=== PATIENT | female | born 1955 | race Caucasian/White ===

== ENCOUNTER 2018-12-07 06:49 | Day surgery (SDC) | payer OTHER, SELFPAY ==
[2018-12-07] VITALS (9 sets, daily range): BP systolic 154–191; BP diastolic 77–86; PULSE 82–91; RESP 8–17; TEMP 36.5–36.6; O2SAT 92–98; BMI 32.5
--- NOTE | 2018-12-07 | PATH_ITS ---
[facility] Accession Number: [id number] . 01 Material submitted: . PART A: ANAL SKIN TAG PART B: ANAL LESION . 01 Diagnosis: A. Skin, Anal Tag, Excision: Fibroepithelial polyp/anal tag. Negative for dysplasia and malignancy. . B. Skin, Anal Lesion, Excision: Fibroepithelial polyp/anal tag. Negative for dysplasia and malignancy. 12/11/2018 . 01 Electronically signed: . Tamica Michaels MD, Pathologist NPI- [id number] . 01 Gross description: . Received two formalin-filled containers, both labeled with the patient's name: . A. In a container labeled anal skin tag, the specimen consists of a 0.3 x 0.3 x 1.0 cm, pink-mccauley, dome-shaped portion of tissue, which is inked, bisected, and entirely submitted in cassette A. B. In a container labeled anal lesion, the specimen consists of a 0.4 x 0.3 x 0.3 cm, mccauley-foy, very irregular-shaped, and rough portion of tissue, which is inked, bisected, and totally submitted in cassette B. ([id number]) /FRR . 01 Pathologist provided ICD-10: L91.8 . 01 CPT . 903015, [id number] Performed at: [address] [id number] MD Epi Travis MD Phone: [phone]
[2018-12-07] MEDS: APREPITANT 40 MG CAPSULE PO (07:50)
[2018-12-07] MEDS: LACTATED RINGERS 1,000 ML 42 ML IV (07:53)
[2018-12-07] MEDS: BUPIVACAINE LIPOSOME 266 MG/20 ML VIAL INJ (09:35)
--- NOTE | 2018-12-07 09:41 | PM.HP.1 ---
History of Present Illness Date Patient Seen: 12/07/18 Time Patient Seen: 09:41 Chief complaint: [id number] COLONOSCOPY W/POSS HEMORRHOID BANDING Narrative: Very pleasant 63-year-old lady that I met this past September. She suffers from chronic pain in her neck and back and so she has been on chronic pain medication for quite a long time. This has resulted in significant constipation for many years. She feels like she has gotten that under control but she reports that she has significant hemorrhoids and that she has bleeding with nearly every bowel movement. We discussed examination under anesthesia and hemorrhoid banding in the office. We also talked about the need to make sure that the bleeding is not coming from more proximal source and so she needs a complete colonoscopy as well. It has been about 10 years since her last colonoscopy. She presents today to have those procedures. Patient History Medical History Degenerative disc disease (Chronic) Spinal stenosis (Chronic) Family & Social History Family History: Reviewed 12/07/18 by Corina Paul MD Social History: household members spouse Tobacco & Substance use: Smoking Status Never smoker alcohol intake never Meds Home Medications Medication Instructions Recorded Confirmed Type CHOLECALCIFEROL (VITAMIN D3) 4,000 iu PO Q DAY #0 08/25/10 12/07/18 History (Vitamin D3) Pyridoxine (Vitamin B-6) 0 mg PO * UK DOSE/FREQUENCY #0 08/25/10 History VITAMIN C - 1,000 mg PO Q DAY #0 08/25/10 12/07/18 History (VITAMIN C) Vitamin E (Alpha-Tocopherol) 800 unit PO Q DAY #0 08/25/10 12/07/18 History COENZYME Q10/VITAMIN E (CO-Q-10 200 mg PO QDAY #0 03/13/13 12/07/18 History 200mg) [FISH OIL] #0 03/13/13 10/13/18 History [GLUCOSAMINE] 1,500 mg PO Q DAY #0 03/13/13 12/07/18 History buprenorphine-naloxone [Suboxone] 1 kassidy SUBLINGUAL TID #0 03/13/13 12/07/18 History gabapentin [Neurontin] 600 mg PO TID #0 03/13/13 12/07/18 History nadolol [Corgard] 30 mg PO QDAY #0 03/13/13 12/07/18 History quetiapine 25 mg PO HS #0 03/13/13 12/07/18 History selenium 200 mcg tablet 200 mcg PO DAILY 10/13/18 12/07/18 History Allergies Allergy/AdvReac Type Severity Reaction Status Date / Time No Known Drug Allergies Allergy Unknown Unverified 03/09/18 12:04 codeine [CODEINE] AdvReac Severe HEAD ABOUT Unverified 10/13/18 13:00 TO EXPLODE & BAD NAUSEA & VOMTING. fluoxetine [FLUOXETINE] AdvReac Severe PARANOID. Unverified 10/13/18 13:00 Review of Systems Review of Systems All systems reviewed & are unremarkable except as noted in HPI and below Exam Vital Signs (past 8 hours): - 12/07/18 07:09 Temperature 97.7 F Pulse Rate 91 H Respiratory Rate 17 Blood Pressure 191/86 H Pulse Oximetry 98 Oxygen Delivery Method Room Air Narrative Exam Narrative: Onel 63-year-old lady in no obvious distress HEENT: Normocephalic and atraumatic, pupils equal round reactive to light accommodation with anicteric sclera Lungs: Clear bilaterally Heart: Regular rate and rhythm Abdomen: Soft, rotund, active bowel sounds. No incisions noted. Extremities: Warm and well perfused without edema Assessment & Plan Plan: Assessment/Plan Narrative: Onel 63-year-old lady with chronic pain syndrome has been on long-term narcotic pain control and is now on Suboxone. She has rectal bleeding and requires examination under anesthesia and a complete colonoscopy. It will not be feasible to complete this with IV sedation due to the patient's regular medications. We will complete this procedure today with general anesthesia.
[2018-12-07] MEDS: fentaNYL 100 MCG/2 ML INJ 50 MCG IV (09:47)
--- NOTE | 2018-12-07 09:50 | P.OP_ITS ---
Operative Date/Time/Diagnoses Date of procedure: 12/07/18 Time of procedure: 09:43 Pre-op diagnosis: Rectal bleeding Hemorrhoids Screening Post-op diagnosis: same Procedure & Clinicians Procedure: Colonoscopy with hemorrhoid banding, excision of anal polyp, and biopsy of perianal lesion. Same procedure as scheduled: Yes Indications: Last colonoscopy more than 10 years ago Surgeon: Corina Paul Anesthesia Type: General Operative Notes Findings: 1. Adequate prep 2. Extremely tortuous and atonic colon consistent with chronic constipation 3. Minimal diverticulosis limited to the sigmoid region 4. No AV malformations or neoplastic lesions appreciated 5. One area of grade 2 internal hemorrhoids, banded 6. 1 cm anal polyp 7. Friable lesion at 12:00 Radian in the anal canal with patient in lithotomy position Closure Type: primary Specimen(s): other (1. Anal polyp, 2. Anal lesion) Estimated Blood Loss (mL): 5 Procedure in detail: After obtaining informed consent the patient brought to the operating room and placed in the supine position on the operating table. Following successful induction of general endotracheal anesthesia, appropriate padding of all bony prominences, placement of appropriate monitors, a time-out was held per SCOAP protocol. The colonoscope was lubricated and passed into the patient's anus. The entire colon was navigated to the level of the cecum with significant difficulty. The patient's colon was notably atonic and tortuous. Multiple changes of position and external pressure were required to ventrally reach the cecum. We then pulled the scope back being sure to go to and fro performed on all mucosal prominence is get an excellent examination. Scope withdrawal time for the colonoscopy portion of the procedure was 14 min. At the level of the rectal vault, the scope was retroflexed and we examined the internal hemorrhoids. There was only 1 in large bundle of hemorrhoids at approximately the 4-5 o' clock Radian in the anal canal. Continued examination a 1-1.5 cm anal polyp that was quite friable. This was at the 5:00 a.m. Radian. At the 630 Radian, there was a flat friable lesion. This lesion oozed throughout the procedure. I elected to remove the anal polyp, biopsy the lesion, and band the enlarged internal hemorrhoids. The colonoscopy portion of the procedure was terminated. The anoscope was lubricated and placed in the patient's anal canal. The enlarged second-degree hemorrhoids were visualized, grasped, and 2 bands were deployed at the base of this complex. There was no bleeding noted. We now turned our attention to the 2 anal lesions. We dressed the polyp 1st. The entire area was anesthetized with Exparel to provide extended local analgesia due to the patient's dependence on narcotics. The polyp was removed by creating an elliptical incision at its base. The defect was then closed with 3 0 chromic suture. A wedge-shaped biopsy was then taken of the anal lesion, the remaining defect was then also addressed with chromic suture. The wounds were all checked for hemostasis. We were satisfied that all was clean and dry, the procedure was concluded. All sponge, needle, and instrument counts were correct at the conclusion of the case. The patient was allowed to awake from anesthesia without difficulty and taken to the post anesthesia care unit in good condition. Complications: none Condition: stable Disposition: PACU Plan for aftercare: 1. Discharge to home 2. Follow up with me in 2 weeks 3. Tentatively plan for next colonoscopy in 10 years
[2018-12-07] MEDS: HYDROMORPHONE 4 MG TABLET PO (10:29)
== END 2018-12-07 10:44 | disposition home or self-care (01) ==
PROVIDERS: PCP Family Medicine; Visit Provider Surgery
PROC: 0DJD8ZZ Inspection of Lower Intestinal Tract, Via Natural or Artificial Opening Endoscopic (ICD-10-PCS; CPT 45378; principal; 2018-12-07 07:45)
DX: K62.5 Hemorrhage of anus and rectum (principal); K64.1 Second degree hemorrhoids; K57.30 Diverticulosis of large intestine without perforation or abscess without bleeding; K62.0 Anal polyp; K59.09 Other constipation; G89.29 Other chronic pain
CPT/HCPCS: 46922; 45378; 46221; 46999; C9290; J1100; J2250; J2405; J2704; J3010; J8501

== ENCOUNTER → 2019-08-17 07:42 | Outpatient (CLI) | payer OTHER, SELFPAY ==
--- NOTE | 2019-08-17 | DI.MG.S_ITS ---
BILATERAL DIGITAL SCREENING MAMMOGRAM 3D/2D WITH CAD: 08/17/2019 CLINICAL: Routine screening. Comparison is made to exams dated: 01/25/2018 mammogram, 11/18/2016 mammogram, and 11/06/2015 mammogram - [facility]. The tissue of both breasts is extremely dense, which lowers the sensitivity of mammography. Current study was also evaluated with a Computer Aided Detection (CAD) system. No significant masses, calcifications, or other findings are seen in either breast. There has been no significant interval change. IMPRESSION: NEGATIVE There is no mammographic evidence of malignancy. A 1 year screening mammogram is recommended. This exam was interpreted at Station ID: [id number]. NOTE: For mammograms, a report in lay terms will be sent to the patient. Approximately 15% of breast malignancies will not be visualized mammographically. In the management of a palpable breast mass, a negative mammogram must not discourage biopsy of a clinically suspicious lesion. Electronically Signed By: Jersey brink/kaleb:08/17/2019 11:50:01 letter sent: Normal Exam ACR BI-RADS Category 1: Negative [id number]
== END ==
PROVIDERS: PCP Family Medicine; Visit Provider Family Medicine
DX: Z12.31 Encounter for screening mammogram for malignant neoplasm of breast (principal)
CPT/HCPCS: 77063; 77067

== ENCOUNTER 2019-11-27 06:34 | Emergency (ER) | payer OTHER, SELFPAY ==
[2019-11-27 06:40] VITALS: BP 180/79; PULSE 86; RESP 12; TEMP 36.8; O2SAT 100; BMI 28.5
--- NOTE | 2019-11-27 07:04 | DI.RAD.S_ITS ---
PROCEDURE: XR ELBOW LT MIN 3V INDICATIONS: Fall TECHNIQUE: 3 views of the elbow were acquired. COMPARISON: None. FINDINGS: Bones: No fractures or dislocations. No suspicious bony lesions. Soft tissues: No elbow joint effusion. No suspicious soft tissue calcifications. IMPRESSION: No fracture. No osseous lesion. If symptoms and/or clinical suspicion for pathology persists, further assessment with repeat radiographs (7-10 days) or advanced imaging (e.g. CT, MRI or bone scan) may be helpful. Dictated by: Simi Angulo MD, PhD on 11/27/2019 at 7:48 Approved by: Simi Angulo MD, PhD on 11/27/2019 at 7:49
--- NOTE | 2019-11-27 07:04 | DI.RAD.S_ITS ---
PROCEDURE: XR RIBS LT MIN 3V W CXR1V INDICATIONS: Fall TECHNIQUE: 2 views of the left ribs were acquired, along with a single view chest. COMPARISON: None. FINDINGS: Surgical changes and devices: None. Bones and chest wall: No fractures or dislocations. No suspicious bony lesions. Overlying soft tissues appear unremarkable. Lungs and pleura: No pleural effusions or pneumothorax. Lungs appear clear. Mediastinum: Mediastinal contours appear normal. Heart size is normal. IMPRESSION: No displaced rib fracture. No acute cardiopulmonary disease process. Dictated by: Simi Angulo MD, PhD on 11/27/2019 at 7:47 Approved by: Simi Angulo MD, PhD on 11/27/2019 at 7:48
--- NOTE | 2019-11-27 07:18 | ED.FALL ---
HPI - Fall General Chief Complaint: Fall Stated Complaint: fell thinks she broke rib and left elbow Time Seen by Provider: 11/27/19 06:38 Source: patient Mode of arrival: Ambulatory Limitations: no limitations History of Present Illness HPI Narrative: Patient is a 64-year-old female who presents with left-sided rib pain. She was hanging lights her living room an hour half prior to arrival, when she fell hurting her right ribs. It hurts every time she moves or breathes. She also complains of left elbow pain but no numbness or tingling, I does hurt to palpate. complaint: fall Onset (ago): hour(s) Fall from: standing Fall witnessed: no Place fall occurred: home Loss of consciousness: none Related Data Home Medications Medication Instructions Recorded Confirmed CHOLECALCIFEROL (VITAMIN D3) 4,000 iu PO Q DAY #0 08/25/10 12/07/18 (Vitamin D3) Pyridoxine (Vitamin B-6) 0 mg PO * DOSE/FREQUENCY #0 08/25/10 VITAMIN C - 1,000 mg PO Q DAY #0 08/25/10 12/07/18 (VITAMIN C) Vitamin E (Alpha-Tocopherol) 800 unit PO Q DAY #0 08/25/10 12/07/18 COENZYME Q10/VITAMIN E (CO-Q-10 200 mg PO QDAY #0 03/13/13 12/07/18 200mg) [FISH OIL] #0 03/13/13 10/13/18 [GLUCOSAMINE] 1,500 mg PO Q DAY #0 03/13/13 12/07/18 buprenorphine-naloxone [Suboxone] 1 kassidy SUBLINGUAL TID #0 03/13/13 12/07/18 gabapentin [Neurontin] 600 mg PO TID #0 03/13/13 12/07/18 nadolol [Corgard] 30 mg PO QDAY #0 03/13/13 12/07/18 quetiapine 25 mg PO HS #0 03/13/13 12/07/18 selenium 200 mcg tablet 200 mcg PO DAILY 10/13/18 12/07/18 Previous Rx's Medication Instructions Recorded diazepam 10 mg PO BID PRN #10 tab 12/07/18 dibucaine 1 applictn TOP QID #28 gram 12/07/18 hydromorphone 4 mg PO Q4-6H PRN #10 tab 12/07/18 Allergies Allergy/AdvReac Type Severity Reaction Status Date / Time No Known Drug Allergies Allergy Unknown Unverified 12/22/18 11:33 codeine [CODEINE] AdvReac Severe HEAD ABOUT Unverified 12/22/18 11:33 TO EXPLODE & BAD NAUSEA & VOMTING. fluoxetine [FLUOXETINE] AdvReac Severe PARANOID. Unverified 12/22/18 11:33 Review of Systems Review of Systems ROS Unobtainable: All systems reviewed & are unremarkable except as noted in HPI and below Constitutional Constitutional: Denies chills, Denies fever(s), Denies lethargy and Denies weakness Eyes Eyes: Denies change in vision, Denies eye discharge, Denies irritation and Denies loss of vision Cardiovascular Cardiovascular: Reports as per HPI Respiratory Respiratory: Reports as per HPI Gastrointestinal Gastrointestinal: Denies abdominal pain, Denies change in bowel habits, Denies diarrhea, Denies nausea and Denies vomiting Genitourinary Genitourinary: Denies hematuria, Denies flank pain, Denies urinary incontinence and Denies urinary urgency Musculoskeletal Musculoskeletal: Denies back pain, Denies muscle weakness, Denies numbness and Denies tingling Neurologic Neurologic: Denies loss of vision, Denies numbness, Denies tingling and Denies weakness Patient History Medical History Degenerative disc disease (Chronic) Spinal stenosis (Chronic) Family History Mother Hypertension Cancer Father Stroke Social History marital status: household members: spouse occupational status: employed Smoking Status: Never smoker alcohol intake: never substance use type: does not use Smoking Status: Never smoker alcohol intake frequency: 0-2 drinks per day Substance Use Type: does not use Exam Initial Vital Signs Initial Vital Signs: Vital Signs Temperature 98.2 F 11/27/19 06:40 Pulse Rate 86 11/27/19 06:40 Respiratory Rate 12 11/27/19 06:40 Blood Pressure 180/79 H 11/27/19 06:40 Pulse Oximetry 100 11/27/19 06:40 GENERAL: Well-appearing, well-nourished and in no acute distress. HEENT: Head atraumatic,EOMI, pupils reactive, face symmetric, moist mucous membranes CARDIOVASCULAR: Regular rate and rhythm without murmurs, rubs or gallops. RESPIRATORY: Breath sounds equal bilaterally, no wheezes rales or rhonchi. Pain left anterior lateral ribs no contusion no paradoxical movement tender to touch ABDOMEN: Soft, nontender. Normoactive bowel sounds all 4 quadrants. No guarding or rebound. EXTREMITIES: Normal range of motion, no clubbing or edema. Neurovascularly intact Left upper extremity able to supinate and pronate no gross bony deformity. Tender to touch mild contusion noted laterally NEUROLOGICAL: Alert and oriented x4.Normal gait and speech. Cranial nerves II through XII grossly intact. SKIN: Warm, dry, no laceration, no petechiae, no rashes or lesions. Course Orders Ordered: ED Orders 11/27/19 07:04 XR elbow LT min 3V Stat XR ribs LT min 3V w CXR1V Stat Discontinued Medications Ketorolac Tromethamine (Toradol) 30 mg IM NOW ONE Stop: 11/27/19 07:21 Last Admin: 11/27/19 07:56 Dose: 30 mg Documented by: BOB Vital Signs Vital signs: Vital Signs - 8 hr 11/27/19 06:40 Temperature 98.2 F Pulse Rate 86 Respiratory Rate 12 Blood Pressure 180/79 H Pulse Oximetry 100 MDM - Fall Imaging Data rib XR: Radiologist's Impression: PROCEDURE: XR RIBS LT MIN 3V W CXR1V INDICATIONS: Fall TECHNIQUE: 2 views of the left ribs were acquired, along with a single view chest. COMPARISON: None. FINDINGS: Surgical changes and devices: None. Bones and chest wall: No fractures or dislocations. No suspicious bony lesions. Overlying soft tissues appear unremarkable. Lungs and pleura: No pleural effusions or pneumothorax. Lungs appear clear. Mediastinum: Mediastinal contours appear normal. Heart size is normal. IMPRESSION: No displaced rib fracture. No acute cardiopulmonary disease process. Dictated by: Simi Angulo MD, PhD on 11/27/2019 at 7:47 Extremity x-ray #1: Radiologist's Impression: PROCEDURE: XR ELBOW LT MIN 3V INDICATIONS: Fall TECHNIQUE: 3 views of the elbow were acquired. COMPARISON: None. FINDINGS: Bones: No fractures or dislocations. No suspicious bony lesions. Soft tissues: No elbow joint effusion. No suspicious soft tissue calcifications. IMPRESSION: No fracture. No osseous lesion. If symptoms and/or clinical suspicion for pathology persists, further assessment with repeat radiographs (7-10 days) or advanced imaging (e.g. CT, MRI or bone scan) may be helpful. Dictated by: Simi Angulo MD, PhD on 11/27/2019 at 7:48 Discharge Plan Departure Patient Disposition: Home Clinical Impression: Contusion of rib on left side Qualifiers: Encounter type: initial encounter Qualified Code(s): S20.212A - Contusion of left front wall of thorax, initial encounter Discharge Date/Time: 11/27/19 08:44 Instructions: DI for Rib Contusion Activity Restrictions/Additional Instructions: *You have been diagnosed with left rib contusion *What to do: At this time no sign of broken ribs elbow x-ray is also negative. Expect to have pain for the next 2 weeks. May try splinting with a pillow. *Continue to take medications as directed Ibuprofen 600 mg every 6-8 hours if needed for pain *Follow up with your primary care provider in 2-3 days *Return to ER if you should have increasing shortness of breath worsening pain or any new, worsening or concerning symptoms Prescriptions: No Action CHOLECALCIFEROL (VITAMIN D3) (Vitamin D3) 4,000 iu PO Q DAY Qty: 0 RF: 0 VITAMIN C - (VITAMIN C) 1,000 mg PO Q DAY Qty: 0 RF: 0 Vitamin E (Alpha-Tocopherol) 800 unit PO Q DAY Qty: 0 RF: 0 Pyridoxine (Vitamin B-6) 0 mg PO * UK DOSE/FREQUENCY Qty: 0 RF: 0 quetiapine 25 MG tablet 25 mg PO HS Qty: 0 RF: 0 gabapentin [Neurontin] 600 MG tablet 600 mg PO TID Qty: 0 RF: 0 nadolol [Corgard] 20 MG tablet 30 mg PO QDAY Qty: 0 RF: 0 buprenorphine-naloxone [Suboxone] 8 MG/2 MG film 1 kassidy Sublingual TID Qty: 0 RF: 0 COENZYME Q10/VITAMIN E (CO-Q-10 200mg) 200 mg PO QDAY Qty: 0 RF: 0 [FISH OIL] Qty: 0 RF: 0 [GLUCOSAMINE] 1,500 mg PO Q DAY Qty: 0 RF: 0 selenium 200 mcg tablet 200 mcg PO DAILY RF: 0 diazepam 10 mg tablet 10 mg PO BID PRN (Reason: muscle spasm) Qty: 10 RF: 0 hydromorphone 4 mg tablet 4 mg PO Q4-6H PRN (Reason: pain) Qty: 10 RF: 0 dibucaine 1 % ointment 1 applictn TOP QID Qty: 28 RF: 5 Referrals: Keith Fraire MD [Primary Care Provider] - Stand Alone Forms: Work Release Note
[2019-11-27] MEDS: KETOROLAC 60 MG/2 ML VIAL 30 MG IM (07:56)
== END 2019-11-27 08:44 | disposition home or self-care (01) ==
PROVIDERS: Emergency Provider Emergency Medicine; PCP Family Medicine
DX: S20.212A Contusion of left front wall of thorax, initial encounter (principal); M25.522 Pain in left elbow; W18.30XA Fall on same level, unspecified, initial encounter
CPT/HCPCS: 71101; 73080; 96372; 99283; J1885

== ENCOUNTER → 2020-08-15 11:08 | Outpatient (CLI) | payer OTHER, SELFPAY ==
--- NOTE | 2020-08-15 | DI.RAD.S_ITS ---
PROCEDURE: XR KNEE RT 3V INDICATIONS: right knee pain, swelling TECHNIQUE: 3 views of the knee were acquired. COMPARISON: None. FINDINGS: Bones: No fracture. Mild to moderate narrowing of the medial joint space. Scattered degenerative subchondral sclerosis and spurring. Mild narrowing of the patellofemoral joint space. Soft tissues: No joint effusion. No suspicious soft tissue calcifications. 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 If the patient's pain or other symptoms persist, consider further evaluation with MRI Dictated by: Jose Lion M.D. on 08/15/2020 at 15:03 Approved by: Jose Lion M.D. on 08/15/2020 at 15:05
== END ==
PROVIDERS: PCP Family Medicine; Referring Provider Family Medicine; Visit Provider Family Medicine
DX: M25.561 Pain in right knee (principal); M17.11 Unilateral primary osteoarthritis, right knee
CPT/HCPCS: 73562

== ENCOUNTER → 2021-04-21 08:15 | Outpatient (CLI) | payer OTHER, MEDICARE, SELFPAY ==
--- NOTE | 2021-04-21 | DI.MG.S_ITS ---
BILATERAL DIGITAL SCREENING MAMMOGRAM 3D/2D WITH CAD: 04/21/2021 CLINICAL: Routine screening. Comparison is made to exams dated: 08/17/2019 mammogram, 01/25/2018 mammogram, 11/18/2016 mammogram, 09/28/2014 mammogram, and 09/26/2013 mammogram - [facility]. The tissue of both breasts is heterogeneously dense. This may lower the sensitivity of mammography. Current study was also evaluated with a Computer Aided Detection (CAD) system. There are calcifications in both breasts. No significant masses, calcifications, or other findings are seen in either breast. There has been no significant interval change. IMPRESSION: BENIGN There is no mammographic evidence of malignancy. A 1 year screening mammogram is recommended. This exam was interpreted at Station ID: [id number]. NOTE: For mammograms, a report in lay terms will be sent to the patient. Approximately 15% of breast malignancies will not be visualized mammographically. In the management of a palpable breast mass, a negative mammogram must not discourage biopsy of a clinically suspicious lesion. Electronically Signed By: Cabrera Lynn M.D. at/:04/21/2021 09:33:55 letter sent: Normal Exam ACR BI-RADS Category 2: Benign Finding(s) 3342F
== END ==
PROVIDERS: PCP Family Medicine; Referring Provider Family Medicine; Visit Provider Family Medicine
DX: Z12.31 Encounter for screening mammogram for malignant neoplasm of breast (principal)
CPT/HCPCS: 77063; 77067

== ENCOUNTER → 2022-08-14 13:43 | Outpatient (CLI) | payer OTHER, MEDICARE, SELFPAY ==
[2022-08-14 14:42] LABS: Add Manual Diff / Slide Review NO; Basophils Absolute Auto 0 /uL (0-100); Basophils Percent Auto 0.8 % (0-2); Eosinophils Absolute Auto 100 /uL (0-450); Eosinophils Percent Auto 1.4 % (2-4); Hematocrit 33.7 % (36-46); Hemoglobin 11.8 g/dL (12.0-16.0); Lymphocytes Absolute Auto 1500 /uL (1100-4500); Lymphocytes Percent Auto 29.3 % (25-40); Monocytes Absolute Auto 400 /uL (0-900); Monocytes Percent Auto 7.7 % (3-14); Neutrophils Absolute Auto 3200 /uL (1500-7000); Neutrophils Percent Auto 60.8 % (50-75); Platelet Count 184 X10^3/uL (150-400); Red Blood Cell Count 3.48 X10^6/uL (4.0-5.2); Red Cell Distribution Width 13.4 % (11.6-14.8); White Blood Cell Count 5.2 X10^3/uL (4.5-11.0)
[2022-08-14 15:00] LABS: Alanine Aminotransferase 27 IU/L (<35); Albumin 4.5 g/dL (3.5-5.0); Albumin Globulin Ratio 1.3 (1.0-2.8); Alkaline Phosphatase 69 U/L (38-126); Aspartate Aminotransferase 33 IU/L (14-36); BUN Creatinine Ratio 33.3 (6-22); Bilirubin Total 0.5 mg/dL (0.2-1.3); Blood Urea Nitrogen 19 mg/dL (7-17); Calcium 9.3 mg/dL (8.4-10.2); Carbon Dioxide 29 mmol/L (22-32); Chloride 100 mmol/L (98-107); Cholesterol 246 mg/dL (140-199); Estimated Glomerular Filt Rate > 60 mL/min (>60); Globulin 3.4 g/dL (1.7-4.1); Glucose 105 mg/dL (80-110); HDL Cholesterol 45 mg/dL (40-60); HEMOLYSIS < 15 (0-50); LDL Cholesterol Calculated 162 mg/dL (<100); Potassium 4.3 mmol/L (3.4-5.1); Sodium 141 mmol/L (137-145); Total Protein 7.9 g/dL (6.3-8.2); Triglycerides 194 mg/dL (35-150)
== END ==
PROVIDERS: PCP Family Medicine; Referring Provider Family Medicine; Visit Provider Family Medicine
DX: D64.9 Anemia, unspecified (principal); E78.5 Hyperlipidemia, unspecified; I10 Essential (primary) hypertension
CPT/HCPCS: 36415; 80053; 80061; 85025

== ENCOUNTER → 2023-03-04 07:18 | Outpatient (CLI) | payer OTHER, MEDICARE, SELFPAY ==
--- NOTE | 2023-03-04 | DI.MG.S_ITS ---
BILATERAL DIGITAL SCREENING MAMMOGRAM 3D/2D WITH CAD: 03/04/2023 CLINICAL: Routine screening. Comparison is made to exams dated: 04/21/2021 mammogram, 08/17/2019 mammogram, and 01/25/2018 mammogram - [facility]. Both breasts are heterogeneously dense, which may obscure small masses (category c / 51-75% glandular tissue). Current study was also evaluated with a Computer Aided Detection (CAD) system. There are benign calcifications in both breasts. No significant masses, calcifications, or other findings are seen in either breast. There has been no significant interval change. IMPRESSION: BENIGN There is no mammographic evidence of malignancy. A 1 year screening mammogram is recommended. Based on the Tyrer Cuzick model (a risk assessment model) the patient's lifetime risk is 5.0% and her 10 year risk is 2.5%. According to the ACR, ACS, and NCCN guidelines, an annual breast MRI exam along with mammogram is recommended if the patient's lifetime risk is 20% or greater. This exam was interpreted at Station ID: [id number]. NOTE: For mammograms, a report in lay terms will be sent to the patient. Approximately 15% of breast malignancies will not be visualized mammographically. In the management of a palpable breast mass, a negative mammogram must not discourage biopsy of a clinically suspicious lesion. Electronically Signed By: Kelvin alcaraz/kaleb:03/04/2023 13:05:55 letter sent: Normal Exam ACR BI-RADS Category 2: Benign Finding(s) 3342F
== END ==
PROVIDERS: PCP Family Medicine; Referring Provider Family Medicine; Visit Provider Family Medicine
DX: Z12.31 Encounter for screening mammogram for malignant neoplasm of breast (principal)
CPT/HCPCS: 77063; 77067

== ENCOUNTER 2024-02-11 16:04 | Inpatient (IN) | payer OTHER, MEDICARE, SELFPAY ==
[2024-02-11] VITALS (10 sets, daily range): BP systolic 147–218; BP diastolic 70–101; PULSE 75–89; RESP 16–23; TEMP 36.1–36.7; O2SAT 91–98; BMI 26.6; BMI 29.0
--- NOTE | 2024-02-11 16:19 | DI.RAD.S_ITS ---
PROCEDURE: XR FEMUR RT MIN 2V INDICATIONS: pain, unable to walk post fall TECHNIQUE: 2 views of the femur were acquired. COMPARISON: None. FINDINGS: Bones: Poorly visualized offset appearance at the femoral neck. No suspicious bony lesions. Tricompartmental arthritic change. Soft tissues: No suspicious soft tissue calcifications or masses. IMPRESSION: Nondisplaced offset appearance of the femoral neck highly suggestive of fracture. It is best seen on AP view. Dictated by: Irena Tirado M.D. on 02/11/2024 at 17:46 Approved by: Irena Tirado M.D. on 02/11/2024 at 17:48
--- NOTE | 2024-02-11 16:20 | DI.RAD.S_ITS ---
PROCEDURE: XR ELBOW RT MIN 3V INDICATIONS: pain, swelling TECHNIQUE: 3 views of the elbow were acquired. COMPARISON: None. FINDINGS: Bones: No fractures or dislocations. No suspicious bony lesions. Soft tissues: No elbow joint effusion. No suspicious soft tissue calcifications. IMPRESSION: No visualized acute fracture or dislocation. However, if clinical concern and/or pain persist, short interval imaging followup in 7-10 days is recommended, as occult injury cannot be definitively excluded. Dictated by: Irena Tirado M.D. on 02/11/2024 at 17:48 Approved by: Irena Tirado M.D. on 02/11/2024 at 17:48
[2024-02-11] MEDS: HYDROMORPHONE 2 MG INJ 1 MG SUBCUT (16:28)
[2024-02-11] MEDS: diazePAM 5 MG TABLET 10 MG PO (16:42)
[2024-02-11] MEDS: HYDROMORPHONE 1 MG INJ 2 MG IM (17:04)
--- NOTE | 2024-02-11 17:04 | PC.NURSE ---
Pt taken to xray by trauma [facility]. Pt unable to lay flat from pain, clutching bed rail and hanging leg off the end of gurney, states higher than 10! for pain scale. Provider notified of patients continuous pain, new order placed (see MAR). Medication administered (see MAR), pt required 3x xray techs and RN to assist in repositioning for xrays and CT. Pt was able to tolerate laying flat on gurney for imaging.
--- NOTE | 2024-02-11 17:22 | DI.CT.S_ITS ---
PROCEDURE: CT PEL WO CON INDICATIONS: fall pain TECHNIQUE: Noncontrast 3 mm axial sections acquired through the bony pelvis, with coronal and sagittal reformatting. COMPARISON: None. FINDINGS: Image quality: Excellent. Bones: Minimally displaced right femoral neck fracture. No dislocation at the hip joint. No visualized additional fractures or dislocations. Soft tissues: Scattered colonic stool. Appendix is normal. IMPRESSION: Mildly displaced right femoral neck fracture. Dictated by: Irena Tirado M.D. on 02/11/2024 at 17:51 Approved by: Irena Tirado M.D. on 02/11/2024 at 17:53
[2024-02-11] MEDS: fentaNYL 100 MCG/2 ML INJ IV ×7 (18:45→23:23)
--- NOTE | 2024-02-11 19:04 | ED.LOWEXIN ---
HPI - Extremity Injury (Lower) General Chief Complaint: Extremity Injury, Lower Stated Complaint: fell/rt leg pain Time Seen by Provider: 02/11/24 16:21 Source: patient Mode of arrival: Wheelchair History of Present Illness HPI Narrative: 68-year-old woman with a history of chronic pain currently on 8 mg t.i.d. of Suboxone, post spinal fusion was working with a therapist on general conditioning and doing her 1 mi walk. In her house she was walking back and forth and tripped either on the rug or over a weight on the floor. She landed on her right hip and was unable to get up. She does not describe any syncopal episodes, she states she has been actually doing well recently and has been trying to increase overall activity in an effort to improve overall health. She currently is not on any blood thinners. Related Data Home Medications Medication Instructions Recorded Confirmed CHOLECALCIFEROL (VITAMIN D3) 5,000 iu PO Q DAY ##0 08/25/10 02/11/24 (Vitamin D3) VITAMIN C - 1,000 mg PO Q DAY ##0 08/25/10 02/11/24 (VITAMIN C) Vitamin E (Alpha-Tocopherol) 800 unit PO Q DAY ##0 08/25/10 02/11/24 COENZYME Q10/VITAMIN E (CO-Q-10 200 mg PO QDAY ##0 03/13/13 02/11/24 200mg) [FISH OIL] 1,000 mg PO DAILY ##0 03/13/13 02/11/24 [GLUCOSAMINE] 1,500 mg PO Q DAY ##0 03/13/13 02/11/24 buprenorphine 8 mg-naloxone 2 mg 8 film sublingual TID ##0 03/13/13 02/11/24 sublingual film (Suboxone) gabapentin 600 mg tablet 600 mg PO TID ##0 03/13/13 02/11/24 (Neurontin) nadolol 20 mg tablet (Corgard) 40 mg PO QDAY ##0 03/13/13 02/11/24 Miralax 1 tbsp PO DAILY 02/11/24 02/11/24 vitamin B complex 1 tab PO DAILY 02/11/24 02/11/24 Allergies Allergy/AdvReac Type Severity Reaction Status Date / Time codeine [CODEINE] AdvReac Severe HEAD ABOUT Verified 02/11/24 19:44 TO EXPLODE & BAD NAUSEA & VOMTING. fluoxetine [FLUOXETINE] AdvReac Severe PARANOID. Verified 02/11/24 19:44 Review of Systems Review of Systems Narrative: Pertinent positive and negative findings as per HPI Patient History Medical History (Updated 02/12/24 @ 03:46 by Julia Abrams MD) Degenerative disc disease Spinal stenosis Family History Mother Hypertension Cancer Father Stroke Social History marital status: household members: spouse occupational status: employed Smoking Status: Former smoker alcohol intake: never substance use type: does not use Smoking Status: Never smoker alcohol intake frequency: 0-2 drinks per day Substance Use Type: does not use Exam Initial Vital Signs Initial Vital Signs: Vital Signs Temperature 97.0 F L 02/11/24 16:09 Pulse Rate 75 02/11/24 16:09 Respiratory Rate 18 02/11/24 16:09 Blood Pressure 218/91 H 02/11/24 16:09 Pulse Oximetry 98 02/11/24 16:09 Oxygen Delivery Method Room Air 02/11/24 16:09 General: Significant distress secondary to pain in the right hip. Able to give a complete and coherent history. Well-nourished well-developed HEENT: Moist mucous membranes, normal sclera with reactive pupils, Respiratory: Lungs are clear to auscultation, no wheezing no rales no rhonchi. Full and symmetrical air movement Cardiac: Regular rate and rhythm no murmurs no bruits Abdomen: Soft, nontender, good bowel tones, no flank pain Skin: Warm and dry, contusion with developing hematoma over the right elbow Neurologic: Grossly neurologically intact with no obvious asymmetries or abnormalities Extremities: Right hip significantly tender with any range of motion. Right elbow with notable contusion however unhindered range of motion Psych: Cooperative, appropriate insight and affect Course Orders Ordered: ED Orders 02/11/24 19:23 Complete Blood Count AUTO DIFF Stat Comprehensive Metabolic Panel Stat Lipase Stat Acetaminophen (Acetaminophen 325 Mg Tablet) 650 mg PO Q6H PRN PRN Reason: Fever/Mild Pain (1-3) Last Admin: 02/11/24 21:46 Dose: 650 mg Documented By: SR Buprenorphine/Naloxone (Buprenorphine/Naloxone 8mg/2mg 1 Tab) 1 tab SL TID [facility] Last Admin: 02/11/24 20:37 Dose: 1 tab Documented By: Cyclobenzaprine HCl (Cyclobenzaprine 10 Mg Tablet) 10 mg PO Q8HR PRN PRN Reason: Spasms Last Admin: 02/11/24 21:46 Dose: 10 mg Documented By: SR Fentanyl (Fentanyl 100 Mcg/2 Ml Inj) 100 mcg IV Q15MIN PRN PRN Reason: pain Last Admin: 02/12/24 02:22 Dose: 100 mcg Documented By: Admin: 02/12/24 00:26 Dose: 100 mcg Documented By: Admin: 02/11/24 23:23 Dose: 100 mcg Documented By: Admin: 02/11/24 21:46 Dose: 100 mcg Documented By: Admin: 02/11/24 21:09 Dose: 100 mcg Documented By: Admin: 02/11/24 20:37 Dose: 100 mcg Documented By: Admin: 02/11/24 19:56 Dose: 100 mcg Documented By: Gabapentin (Gabapentin 600 Mg Tablet) 1,200 mg PO TID [facility] Last Admin: 02/11/24 21:46 Dose: 1,200 mg Documented By: SR Naloxone HCl (Naloxone 0.4 Mg/Ml Vial) 0.2 mg IV Q2MIN PRN PRN Reason: Opiate Reversal Ondansetron HCl (Ondansetron 4 Mg Odt) 4 mg PO NOW PRN PRN Reason: Nausea And Vomiting Ondansetron HCl (Ondansetron 4 Mg/2 Ml Inj) 4 mg IV NOW PRN PRN Reason: Nausea And Vomiting Sodium Chloride (Sodium Chloride 0.9% Flush) 10 ml IV PRN PRN PRN Reason: Flush Sodium Chloride (Sodium Chloride 0.9% Flush) 10 ml IV BID [facility] Venlafaxine HCl (Venlafaxine Er 75 Mg Cap) 225 mg PO DAILY [facility] Discontinued Medications Diazepam (Diazepam 5 Mg Tablet) 10 mg PO NOW ONE Stop: 02/11/24 16:38 Last Admin: 02/11/24 16:42 Dose: 10 mg Documented By: SPF Fentanyl (Fentanyl 100 Mcg/2 Ml Inj) 100 mcg IV NOW ONE Stop: 02/11/24 18:13 Last Admin: 02/11/24 18:45 Dose: 100 mcg Documented By: SPF Fentanyl (Fentanyl 100 Mcg/2 Ml Inj) 100 mcg IV NOW ONE Stop: 02/11/24 19:05 Last Admin: 02/11/24 19:17 Dose: 100 mcg Documented By: VALENTE Hydromorphone HCl (Hydromorphone 1 Mg Inj) 1 mg IV NOW ONE Stop: 02/11/24 16:23 Last Admin: 02/11/24 16:25 Dose: Not Given Documented By: KANU Hydromorphone HCl (Hydromorphone 2 Mg Inj) 1 mg SUBCUT NOW ONE Stop: 02/11/24 16:25 Last Admin: 02/11/24 16:28 Dose: 1 mg Documented By: KANU Hydromorphone HCl (Hydromorphone 1 Mg Inj) 2 mg IM NOW ONE Stop: 02/11/24 16:58 Last Admin: 02/11/24 17:04 Dose: 2 mg Documented By: BRAULIO Vital Signs Vital signs: Vital Signs - 8 hr 02/11/24 16:09 02/11/24 17:15 02/11/24 17:34 Temperature 97.0 F L Pulse Rate 75 80 Respiratory Rate 18 20 Blood Pressure 218/91 H Pulse Oximetry 98 96 Oxygen Delivery Method Room Air Room Air 02/11/24 17:35 02/11/24 17:35 02/11/24 18:00 Temperature Pulse Rate 80 76 Respiratory Rate 17 Blood Pressure 195/92 H Pulse Oximetry 95 95 Oxygen Delivery Method Room Air Room Air 02/11/24 18:01 02/11/24 18:01 02/11/24 18:30 Temperature Pulse Rate 76 77 Respiratory Rate 18 16 Blood Pressure 160/70 H Pulse Oximetry 95 96 Oxygen Delivery Method Room Air 02/11/24 19:00 Temperature Pulse Rate 89 Respiratory Rate 22 Blood Pressure Pulse Oximetry 94 Oxygen Delivery Method Room Air MDM - Extremity Injury (Lower) Lab Data 02/11/24 19:23 02/11/24 19:23 Labs: Lab Results 02/11/24 Range/Units 19:23 WBC 8.9 (4.5-11.0) X10^3/uL RBC 3.12 L (4.0-5.2) X10^6/uL Hgb 10.8 L (12.0-16.0) g/dL Hct 30.8 L (36-46) % MCV 98.8 (80-100) fL MCH 34.7 H (26-34) PG MCHC 35.1 (30-36) % RDW 13.2 (11.6-14.8) % Plt Count 169 (150-400) X10^3/uL Neut % (Auto) 85.0 H (50-75) % Lymph % (Auto) 10.2 L (25-40) % [place] % (Auto) 3.9 (3-14) % Eos % (Auto) 0.2 L (2-4) % Baso % (Auto) 0.7 (0-2) % Neut # (Auto) 7500 H (4034-5483) /uL Lymph # (Auto) 900 L (2036-5409) /uL [place] # (Auto) 300 (0-900) /uL Eos # (Auto) 0 (0-450) /uL Baso # (Auto) 100 (0-100) /uL Sodium 137 (137-145) mmol/L Potassium 4.3 (3.4-5.1) mmol/L Chloride 107 (98-107) mmol/L Carbon Dioxide 28 (22-32) mmol/L BUN 19 H (7-17) mg/dL Creatinine 0.49 L (0.52-1.04) mg/dL Estimated GFR > 60 (>60) mL/min BUN/Creatinine Ratio 38.8 H (6-22) Glucose 140 H (80-110) mg/dL Calcium 9.2 (8.4-10.2) mg/dL Total Bilirubin 0.5 (0.2-1.3) mg/dL AST 26 (14-36) IU/L ALT 20 (<35) IU/L Alkaline Phosphatase 82 (38-126) U/L Total Protein 7.6 (6.3-8.2) g/dL Albumin 4.1 (3.5-5.0) g/dL Globulin 3.5 (1.7-4.1) g/dL Albumin/Globulin Ratio 1.2 (1.0-2.8) Lipase 95 (23-300) U/L MDM Narrative Medical decision making narrative: CC: Right hip pain Complicating co-morbidities: Chronic pain secondary to her neck currently on Suboxone 8 mg t.i.d. for pain control Data collected from: patient Differential considered: Contusion, fracture Exam documented above, pertinent findings include: Right hip pain without significant internal rotation or foreshortening. She has not able to bear weight. Remainder of exam is relatively benign Lab Test results independently reviewed as above. Pertinent findings: CBC is unremarkable with white count at 8.9. Mild anemia at 10.8 and 30.8 Chemistries are reassuring Imaging studies independently reviewed: Femur x-ray shows a femoral neck fracture Elbow x-ray is benign Pelvis CT confirms right-sided femoral neck fracture with no pelvic ring anomalies Consultations: Orthopedics, Dr. Brewer Treatments: Patient is currently on Suboxone. Unfortunately with a partial antagonist, large doses of fentanyl or the only thing that are going to be able to displace the Suboxone and actually help with pain control. I believe we have finally gotten to the point where fentanyl is allowing some pain relief. Discussion: 68-year-old woman with a mechanical fall on her right hip and a femoral neck fracture. He will be admitted by Dr. Nuno with orthopedic consultation anticipation of hip replacement tomorrow. Discussed the use Suboxone and narcotics postop and perioperative. It is much easier to continue current Suboxone doses and use higher doses of fentanyl for perioperative pain control and then weaned down on fentanyl doses back to baseline Suboxone doses than it is to completely stop the Suboxone and Re titrate as the fentanyl is discontinued. Discuss this with Dr. Nuno and will have her continue to evaluate. Patient understands the need for admission. No other significant injuries were appreciated and she is safe for transfer to the floor. Discharge Plan Departure Patient Disposition: Admitted As Inpatient Clinical Impression: Fracture of hip Qualifiers: Encounter type: initial encounter Fracture type: closed Laterality: right Qualified Code(s): S72.001A - Fracture of unspecified part of neck of right femur, initial encounter for closed fracture Fall Qualifiers: Encounter type: initial encounter Qualified Code(s): W19.XXXA - Unspecified fall, initial encounter Admit Date/Time: 02/11/24 19:47 Admit Provider: Concetta Nuno
[2024-02-11 19:34] LABS: Add Manual Diff / Slide Review NO; Basophils Absolute Auto 100 /uL (0-100); Basophils Percent Auto 0.7 % (0-2); Eosinophils Absolute Auto 0 /uL (0-450); Eosinophils Percent Auto 0.2 % (2-4); Hematocrit 30.8 % (36-46); Hemoglobin 10.8 g/dL (12.0-16.0); Lymphocytes Absolute Auto 900 /uL (1100-4500); Lymphocytes Percent Auto 10.2 % (25-40); Mean Corpuscular HGB Conc 35.1 % (30-36); Mean Corpuscular Hemoglobin 34.7 PG (26-34); Mean Corpuscular Volume 98.8 fL (80-100); Monocytes Absolute Auto 300 /uL (0-900); Monocytes Percent Auto 3.9 % (3-14); Neutrophils Absolute Auto 7500 /uL (1500-7000); Platelet Count 169 X10^3/uL (150-400); Red Blood Cell Count 3.12 X10^6/uL (4.0-5.2); Red Cell Distribution Width 13.2 % (11.6-14.8); White Blood Cell Count 8.9 X10^3/uL (4.5-11.0)
--- NOTE | 2024-02-11 19:38 | PM.PN.1 ---
Subjective Subjective Interval history: Called regarding patient by ED. CT scan shows valgus impacted femoral neck fracture. Plan for cemented hip replacement as definitive management given improved functional outcomes as compared to hip pinning. Per chart review, patient is 68 with minimal comorbidities other than spinal stenosis. Patient was working on conditioning exercises as prescribed by a physical therapist at the time of the injury. Given the combination of her overall health, age and functional status I preliminarily plan to utilize an acetabular component during her hip replacement to avoid the long-term possibility of acetabular erosions following a hemiarthroplasty. Reportedly has a history of spinal surgery but there is no spinal hardware evident on the plastic surgeon film of the CT scan so I do not plan to use dual mobility. I have contacted the charge nurse to post the case and plan to start at 8 AM. Planned procedure: Anterior cemented right total hip arthroplasty Implants: Depuy pinnacle and C stem Exam Vital Signs (past 8 hours): - 02/11/24 16:09 02/11/24 17:15 02/11/24 17:34 Temperature 97.0 F L Pulse Rate 75 80 Respiratory Rate 18 20 Blood Pressure 218/91 H Pulse Oximetry 98 96 Oxygen Delivery Method Room Air Room Air 02/11/24 17:35 02/11/24 17:35 02/11/24 18:00 Temperature Pulse Rate 80 76 Respiratory Rate 17 Blood Pressure 195/92 H Pulse Oximetry 95 95 Oxygen Delivery Method Room Air Room Air 02/11/24 18:01 02/11/24 18:01 02/11/24 18:30 Temperature Pulse Rate 76 77 Respiratory Rate 18 16 Blood Pressure 160/70 H Pulse Oximetry 95 96 Oxygen Delivery Method Room Air 02/11/24 19:00 Temperature Pulse Rate 89 Respiratory Rate 22 Blood Pressure Pulse Oximetry 94 Oxygen Delivery Method Room Air Oxygen Delivery Method Room Air Objective Labs 02/11/24 19:23 02/11/24 19:23 Labs: Laboratory Results - last 24 hr 02/11/24 19:23 WBC 8.9 RBC 3.12 L Hgb 10.8 L Hct 30.8 L MCV 98.8 MCH 34.7 H MCHC 35.1 RDW 13.2 Plt Count 169 Neut % (Auto) 85.0 H Lymph % (Auto) 10.2 L [place] % (Auto) 3.9 Eos % (Auto) 0.2 L Baso % (Auto) 0.7 Neut # (Auto) 7500 H Lymph # (Auto) 900 L [place] # (Auto) 300 Eos # (Auto) 0 Baso # (Auto) 100 PFSH Medical History (Updated 02/11/24 @ 19:47 by Julia Abrams MD) Degenerative disc disease Spinal stenosis Family History Mother Hypertension Cancer Father Stroke Social History marital status: household members: spouse occupational status: employed Smoking Status: Never smoker alcohol intake: never substance use type: does not use
[2024-02-11 19:45] LABS: Alanine Aminotransferase 20 IU/L (<35); Albumin 4.1 g/dL (3.5-5.0); Albumin Globulin Ratio 1.2 (1.0-2.8); Alkaline Phosphatase 82 U/L (38-126); Aspartate Aminotransferase 26 IU/L (14-36); BUN Creatinine Ratio 38.8 (6-22); Bilirubin Total 0.5 mg/dL (0.2-1.3); Blood Urea Nitrogen 19 mg/dL (7-17); Calcium 9.2 mg/dL (8.4-10.2); Carbon Dioxide 28 mmol/L (22-32); Chloride 107 mmol/L (98-107); Estimated Glomerular Filt Rate > 60 mL/min (>60); Globulin 3.5 g/dL (1.7-4.1); Glucose 140 mg/dL (80-110); HEMOLYSIS < 15 (0-50); Lipase 95 U/L (23-300); Potassium 4.3 mmol/L (3.4-5.1); Sodium 137 mmol/L (137-145); Total Protein 7.6 g/dL (6.3-8.2)
[2024-02-11] MEDS: BUPRENORPHINE/NALOXONE 8MG/2MG 1 TAB SL (20:37)
[2024-02-11] MEDS: ACETAMINOPHEN 325 MG TABLET 650 MG PO (21:46)
[2024-02-11] MEDS: GABAPENTIN 600 MG TABLET 1200 MG PO (21:46)
[2024-02-11] MEDS: CYCLOBENZAPRINE 10 MG TABLET PO (21:46)
[2024-02-11 22:19] LABS: Appearance Urine UA CLEAR; Bilirubin Urine UA NEGATIVE (NEGATIVE); Color Urine UA YELLOW; Glucose Urine UA NEGATIVE (Negative); Ketones Urine UA NEGATIVE (NEGATIVE); Leukocyte Esterase Urine UA TRACE (NEGATIVE); Nitrite Urine UA NEGATIVE (Negative); Occult Blood Urine UA TRACE-INTACT (Negative); Protein Urine UA NEGATIVE (Negative); Specific Gravity Urine UA 1.015 (1.000-1.035); Urobilinogen Urine UA 0.2 E.U./dL (0.2)
[2024-02-11 22:22] LABS: pH Urine UA 7.5 (4.5-8.0)
[2024-02-11 22:26] LABS: Urine Volume 10mL (spun)
[2024-02-11 22:27] LABS: Bacteria Urine Few (2-10); Culture Indicated Urine Specimen Cultured; RBC Urine 5-10/HPF (0-5/HPF); Squamous Epithelial Cell Urine 0-1 /HPF (0-5/HPF); Transitional Epi Cells Urine 1-5/HPF (0-5/HPF); WBC Urine 5-10/HPF (0-5/HPF)
[2024-02-12] VITALS (17 sets, daily range): BP systolic 106–189; BP diastolic 44–78; PULSE 83–98; RESP 14–25; TEMP 36.2–37.5; O2SAT 91–99; BMI 29.0
--- NOTE | 2024-02-12 | DI.RAD.S_ITS ---
PROCEDURE: XR HIP W PEL IF DONE RT 2V INDICATIONS: TOTAL HIP TECHNIQUE: A total of 2 views of the hip were acquired. COMPARISON: Intraoperative plain films reviewed.. FINDINGS: Bones: Limited immediate postoperative imaging shows normal alignment after right total hip arthroplasty. Soft tissues: No suspicious soft tissue calcifications or masses. IMPRESSION: Normal arthroplasty alignment at completion of surgery. Dictated by: Mohit Chopra M.D. on 02/12/2024 at 21:18 Approved by: Mohit Chopra M.D. on 02/12/2024 at 21:19
--- NOTE | 2024-02-12 | DI.RAD.S_ITS ---
PROCEDURE: XR HIP W PEL IF DONE RT 2V INDICATIONS: POST OP TECHNIQUE: 2 view(s) of the hip acquired. COMPARISON: [facility], CR, XR HIP W PEL IF DONE RT 2V, 02/12/2024, 10:02. FINDINGS: Bones: Patient is status post right hip arthroplasty, with hardware components in expected positions. The hip joint appears congruent. The visualized bony structures appear intact. Soft tissues: Overlying postoperative changes are noted. No suspicious soft tissue densities. IMPRESSION: Expected post-operative appearance of a hip arthroplasty. Approved by: Priscilla Franklin M.D. on 02/12/2024 at 11:17
[2024-02-12] MEDS: fentaNYL 100 MCG/2 ML INJ IV ×7 (00:26→08:02)
[2024-02-12] MEDS: ACETAMINOPHEN 325 MG TABLET 650 MG PO ×2 (03:56→20:23)
[2024-02-12] MEDS: CYCLOBENZAPRINE 10 MG TABLET PO ×2 (05:26→20:22)
[2024-02-12 06:05] LABS: Add Manual Diff / Slide Review NO; Basophils Absolute Auto 0 /uL (0-100); Basophils Percent Auto 0.2 % (0-2); Eosinophils Absolute Auto 0 /uL (0-450); Eosinophils Percent Auto 0.5 % (2-4); Hematocrit 28.9 % (36-46); Hemoglobin 10.3 g/dL (12.0-16.0); Lymphocytes Absolute Auto 1000 /uL (1100-4500); Lymphocytes Percent Auto 10.6 % (25-40); Mean Corpuscular HGB Conc 35.8 % (30-36); Mean Corpuscular Hemoglobin 35.4 PG (26-34); Mean Corpuscular Volume 98.7 fL (80-100); Monocytes Absolute Auto 800 /uL (0-900); Monocytes Percent Auto 8.1 % (3-14); Neutrophils Absolute Auto 7800 /uL (1500-7000); Neutrophils Percent Auto 80.6 % (50-75); Platelet Count 168 X10^3/uL (150-400); Red Blood Cell Count 2.93 X10^6/uL (4.0-5.2); Red Cell Distribution Width 13.3 % (11.6-14.8); White Blood Cell Count 9.7 X10^3/uL (4.5-11.0)
[2024-02-12 06:10] LABS: BUN Creatinine Ratio 32.6 (6-22); Blood Urea Nitrogen 15 mg/dL (7-17); Calcium 9.1 mg/dL (8.4-10.2); Carbon Dioxide 34 mmol/L (22-32); Chloride 105 mmol/L (98-107); Estimated Glomerular Filt Rate > 60 mL/min (>60); Glucose 108 mg/dL (80-110); HEMOLYSIS < 15 (0-50); Potassium 3.9 mmol/L (3.4-5.1); Sodium 138 mmol/L (137-145)
--- NOTE | 2024-02-12 07:41 | P.HP_ITS ---
History of Present Illness History of Present Illness Date Patient Seen: 02/12/24 Time Patient Seen: 07:42 Date of Onset of Symptoms: 02/11/24 Chief complaint: fell/rt leg pain Narrative: Patient seen this morning. Very painful. Attributes pain to right hip. She had a fall while exercising yesterday. She was doing a conditioning class which involve marching in place in fell in her home exercise room. She would immediate pain in the hip. She was brought to the emergency department and found to have a valgus impacted femoral neck fracture. CT scan showed mild displacement. I discussed with the emergency department last night and she was admitted to the hospitalist service here for surgical management. She continues to complain of pain in the hip. It is aggravated by any movement and partially alleviated by rest. It is sharp in nature [facility] Medical History (Updated 02/12/24 @ 03:46 by Julia Abrams MD) Degenerative disc disease Spinal stenosis Family History Mother Hypertension Cancer Father Stroke Social History marital status: household members: spouse occupational status: employed Smoking Status: Former smoker alcohol intake: never substance use type: does not use Meds Home Medications and Allergies Home Medications Medication Instructions Recorded Confirmed Type CHOLECALCIFEROL (VITAMIN D3) 5,000 iu PO Q DAY ##0 08/25/10 02/11/24 History (Vitamin D3) VITAMIN C - 1,000 mg PO Q DAY ##0 08/25/10 02/11/24 History (VITAMIN C) Vitamin E (Alpha-Tocopherol) 800 unit PO Q DAY ##0 08/25/10 02/11/24 History COENZYME Q10/VITAMIN E (CO-Q-10 200 mg PO QDAY ##0 03/13/13 02/11/24 History 200mg) [FISH OIL] 1,000 mg PO DAILY ##0 03/13/13 02/11/24 History [GLUCOSAMINE] 1,500 mg PO Q DAY ##0 03/13/13 02/11/24 History buprenorphine 8 mg-naloxone 2 mg 8 film sublingual TID ##0 03/13/13 02/11/24 History sublingual film (Suboxone) gabapentin 600 mg tablet 600 mg PO TID ##0 03/13/13 02/11/24 History (Neurontin) nadolol 20 mg tablet (Corgard) 40 mg PO QDAY ##0 03/13/13 02/11/24 History Miralax 1 tbsp PO DAILY 02/11/24 02/11/24 History vitamin B complex 1 tab PO DAILY 02/11/24 02/11/24 History Allergies Allergy/AdvReac Type Severity Reaction Status Date / Time codeine [CODEINE] AdvReac Severe HEAD ABOUT Verified 02/11/24 19:44 TO EXPLODE & BAD NAUSEA & VOMTING. fluoxetine [FLUOXETINE] AdvReac Severe PARANOID. Verified 02/11/24 19:44 Exam Vital Signs (past 8 hours): - 02/12/24 00:10 02/12/24 04:31 Temperature 98.7 F 99.5 F Pulse Rate 84 83 Respiratory Rate 20 18 Blood Pressure 189/71 H 172/58 H Pulse Oximetry 98 96 Oxygen Flow Rate 0 0 Oxygen Delivery Method Room Air Oxygen Flow Rate 0 Narrative Exam Narrative: Skin over anterior hips clean dry and intact. No rashes. Sensation intact to light touch in L2 through S1 nerve distributions. Range of motion examination deferred Objective Imaging CT scan - abdomen: My impression: CT scan of the pelvis demonstrates a valgus impacted right femoral neck fracture Labs 02/12/24 05:25 02/12/24 05:25 Labs: Laboratory Results - last 24 hr 02/11/24 02/11/24 02/11/24 19:23 21:00 22:16 WBC 8.9 RBC 3.12 L Hgb 10.8 L Hct 30.8 L MCV 98.8 MCH 34.7 H MCHC 35.1 RDW 13.2 Plt Count 169 Neut % (Auto) 85.0 H Lymph % (Auto) 10.2 L [place] % (Auto) 3.9 Eos % (Auto) 0.2 L Baso % (Auto) 0.7 Neut # (Auto) 7500 H Lymph # (Auto) 900 L [place] # (Auto) 300 Eos # (Auto) 0 Baso # (Auto) 100 Sodium 137 Potassium 4.3 Chloride 107 Carbon Dioxide 28 BUN 19 H Creatinine 0.49 L Estimated GFR > 60 BUN/Creatinine Ratio 38.8 H Glucose 140 H Calcium 9.2 Total Bilirubin 0.5 AST 26 ALT 20 Alkaline Phosphatase 82 Total Protein 7.6 Albumin 4.1 Globulin 3.5 Albumin/Globulin Ratio 1.2 Lipase 95 Urine Color Yellow Urine Appearance Clear Urine pH 7.5 Ur Specific [place] 1.015 Urine Protein Negative Urine Glucose (UA) Negative Urine Ketones Negative Urine Occult Blood Trace-intact Urine Nitrate Negative Urine Bilirubin Negative Urine Urobilinogen 0.2 Ur Leukocyte Esterase Trace H Urine RBC 5-10/hpf H Urine WBC 5-10/hpf H Ur Squamous Epith Cells 0-1 /hpf Ur Transition Epith Cell 1-5/hpf Urine Bacteria Few (2-10) H Ur Culture Indicated? Specimen cultured Vol Urine Centrifuged 10ml (spun) Blood Type A Positive Antibody Screen Negative 02/12/24 05:25 WBC 9.7 RBC 2.93 L Hgb 10.3 L Hct 28.9 L MCV 98.7 MCH 35.4 H MCHC 35.8 RDW 13.3 Plt Count 168 Neut % (Auto) 80.6 H Lymph % (Auto) 10.6 L [place] % (Auto) 8.1 Eos % (Auto) 0.5 L Baso % (Auto) 0.2 Neut # (Auto) 7800 H Lymph # (Auto) 1000 L [place] # (Auto) 800 Eos # (Auto) 0 Baso # (Auto) 0 Sodium 138 Potassium 3.9 Chloride 105 Carbon Dioxide 34 H BUN 15 Creatinine 0.46 L Estimated GFR > 60 BUN/Creatinine Ratio 32.6 H Glucose 108 Calcium 9.1 Total Bilirubin AST ALT Alkaline Phosphatase Total Protein Albumin Globulin Albumin/Globulin Ratio Lipase Urine Color Urine Appearance Urine pH Ur Specific [place] Urine Protein Urine Glucose (UA) Urine Ketones Urine Occult Blood Urine Nitrate Urine Bilirubin Urine Urobilinogen Ur Leukocyte Esterase Urine RBC Urine WBC Ur Squamous Epith Cells Ur Transition Epith Cell Urine Bacteria Ur Culture Indicated? Vol Urine Centrifuged Blood Type Antibody Screen Assessment & Plan Assessment and plan (1) Fracture of hip: Qualifiers: Encounter type: initial encounter Fracture type: closed [facility] Qualified Code(s): S72.001A - Fracture of unspecified part of neck of right femur, initial encounter for closed fracture Status: Acute Plan 1. Plan for cemented right total hip arthroplasty today. Do not recommend hip pinning given 10% risk of nonunion with eventual requirement of total hip as well as snf hip pain. Do not recommend hemiarthroplasty given patient's anticipated longevity and the risk of long-term acetabular erosion. We will utilize [place] and C stem 2. Will be weightbearing as tolerated postoperatively 3. Anticipate that given patient's good pre-injury function she will eventually be able to return home from the hospital without a stay in a nursing facility
[2024-02-12] MEDS: LACTATED RINGERS 1,000 ML 42 ML IV ×2 (07:52→11:13)
--- NOTE | 2024-02-12 08:32 | SUR.HOLD ---
Patient continues to writhe in pain even after two separate doses of Fentanyl IV. Patient extremely anxious and has chronic pain issues and anxiety. PACU nurse requesting anxiety medication from Anesthesia provider since OR room is delayed for surgery. Dr Cevallos administering Versed at bedside.
[2024-02-12] MEDS: CEFAZOLIN 2 GM/100 ML PREMIX 100 ML IV ×2 (09:10→16:19)
[2024-02-12] MEDS: TRANEXAMIC ACID 1,000 MG in SODIUM CHLORIDE 0.9% 100 ML 200 MG IV ×2 (09:10→10:40)
--- NOTE | 2024-02-12 09:36 | SUR.OPER ---
Supine on padded [place] table with bilateral legs secured in padded positioning boots and suspended in positioning spars, operative leg in traction per surgeon. Head on one pillow. Arms secured on padded armboard <90 degrees abduction. Padded perineal post in place per surgeon.
[2024-02-12] MEDS: ROPIVACAINE/EPI/CLONIDINE/KET 50 ML SYRINGE INJ (09:47)
--- NOTE | 2024-02-12 10:48 | CM.DANOTE ---
Initial DCP Assessment Visit Note Reviewed EMR and team rounds for status updates. AUSTIN was unable to meet with pt today as she was in surgery. At baseline, she resides independently with her spouse in their own home in [place]. No anticipated home d/c needs are anticipated. Ortho will plan for her to f/u in 2-weeks for wound check appointment, pt will need OP PT following d/c pending Ortho recommendations. Payor: [facility] PCP: Dr. Swift Surgeon: Dr. Brewer Pt is a 68 year-old F who tripped and fell at home onto her R-hip resulting in a R-hip femoral neck fracture. After falling, she was unable to get herself up or bear weight, and descripes the pain as more than 10. She is typically active and has an indoor exercise routine, as well as walks about 1-mile per day, no DME noted for mobility at baseline. Ortho was consulted in the ED, and the plan was made to admit pt followed by a planned total R-hip arthorplasty which is currently being done this morning. Per Ortho, pt is not expected to need SNF rehab following surgery/discharge do to her age and normal activity levels. DCP will continue to follow and monitor for any further evolving d/c needs. Discharge Planning/Care Management CM Discharge Assessment Start: 02/12/24 10:46 Freq: Status: Active Protocol: Document 02/12/24 10:46 DPL (Rec: 02/12/24 10:47 DPL [id number]) Discharge Planning Assessment Assigned Mobile Mechanic AUSTIN Anedrson Advance Directives? No History Provided By Medical Record Expected Length of Stay 3 Has Patient been admitted in last 30 No days? Prior Living Arrangements House Household Members spouse Type of transporation used prior to Drives own vehicle admit Independent with ADL's Yes Is patient alert and oriented? Yes Comment N/A Caregiver for Another No Patient/Family Preference OP PT Therapy Barriers to Discharge No Discharge Plan Home Community Services Physical Therapy Transportation Arrangement Spouse Referrals Initiated None needed Review Status In Process Please Provide Date Initial DC 02/12/24 Assessment Was Performed
--- NOTE | 2024-02-12 12:01 | P.OP_ITS ---
Operative Date/Time/Diagnoses Date of procedure: 02/12/24 Pre-op diagnosis: Right femoral neck fracture Post-op diagnosis: same Procedure & Clinicians Procedure: Cemented right total hip arthroplasty Same procedure as scheduled: Yes Surgeon: Tahir Brewer Click Yes if Unassisted: Yes Anesthesia Type: General and Local Operative Notes Estimated Blood Loss (mL): 600 Procedure in detail: Implants: ? Depuy [place] Gription size 54 cup ? Depuy cemented C-Stem femoral stem size 3 high offset ? 36 mm +1.5 mm ceramic femoral head Procedure Summary: 68-year-old female who sustained a valgus impacted right femoral neck fracture in a ground level fall. Given the risk of nonunion and eventually requiring a conversion hip with hip pinning as well as the risk of acetabular erosions with a hemiarthroplasty given her age, minimal medical comorbidities, and activity levels, I recommended a total hip arthroplasty with cement. Screw fixation was utilized on the acetabular side as the indication for the procedure was her fracture and therefore could be taken as an indicator of underlying poor bone quality. Initial trials were performed with a size 3 broach and a standard offset neck. This demonstrated instability with +1.5 and +5 head trials but good stability with a +8.5 head trial. Fluoroscopy at that time indicated the hip was considerably lengthened relative to the contralateral side. I therefore transitioned to a size 3 high offset trial and had good stability as well as appropriate leg length and offset with a +5 head. After implanting a size 3 high offset cemented stem I again trialed with a +5 head and found that there was good stability however the lag was considerably longer than the other side. I therefore downsized to a +1.5 head and found more appropriate leg length with maintenance of stability. This construct was then utilized for final implantation Procedure in Detail: This patient was seen preoperatively and evaluated for a femoral neck fracture. Their hip pain correlated with radiographic changes demonstrating a valgus impacted fracture of the right femoral neck. The risks and benefits of hip pinning, hemiarthroplasty, and total hip arthroplasty were discussed at length and all of the patient?s questions were answered. Additional educational materials providing further details beyond our discussion in clinic were provided via a publicly available patient education video which included the incidence of medical complications associated with total hip arthroplasty, reasons for revision following total hip arthroplasty, and patient satisfaction rates following total hip arthroplasty. That video can be accessed at ?[email or web address] . With this understanding of the risks inherent to the procedure, the patient elected to move forward with operative management. They were evaluated preoperatively and determined be appropriate to move forward with surgery by the Internal Medicine team. The patient was met in the preoperative holding area the day of the procedure and all questions were answered. The patient?s nares were swabbed with betadine in order to decolonize them from MRSA. Informed consent was signed and the operative limb was marked with indelible ink. The patient was brought back to the operating room where anesthesia was induced. The patient was transferred to the [place] table and all bony prominences were padded. The operative site was prepped and draped in the usual sterile fashion. Prior to incision, tranexamic acid and cefazolin were administered. Operative templating images were displayed demonstrating the anticipated implant sizes and correct operative extremity. A timeout procedure was performed verifying the patient?s identity, medical comorbidities, allergies, relevant medications, anesthesia type and the surgical plan. All present were in agreement. A direct anterior approach to the hip was utilized. This was performed with a longitudinal incision through a Heuter interval. The incision was planned 2 cm distal and 2 cm lateral to the ASIS extending towards the lateral patella, in line with the muscle body of the TFL. Following incision, the subcutaneous tissue was dissected while taking care to avoid injury to the lateral femoral cutaneous nerve. The fascia overlying the TFL was identified by dissecting off the overlying fat and identifying perforating vessels to the TFL. The TFL fascia was incised and dissected away from the medial border of the TFL. A cobra retractor was placed over the superior femoral neck between the abductors and the hip capsule and used to reflect the TFL laterally. A Winston self-retainer was then placed in the distal aspect of the wound between the TFL and the rectus femoris. This was tensioned to open up the direct anterior interval and the lateral circumflex vessels were identified and coagulated using electrocautery. The floor of the TFL fascia was incised, exposing the pericapsular fat overlying the hip capsule. A second cobra retractor was placed on the inferior femoral neck. A double-bent soft tissue retractor was placed on the anterior wall of the acetabulum and used to tension the reflected head of rectus femoris, which was then released in order to limit soft tissue tension. A capsulotomy was made in the midline of the anterior hip capsule in line with the femoral neck ending at the vastus tubercle. The double-bent retractor was removed in order to limit the amount of time that a soft tissue retractor remained on the anterior wall and protect the femoral nerve. Tag stitches were placed in the superior and inferior leaflets of the hip capsule. An Socrates soft tissue retractor was introduced over the tag stitches and tensioned in the interval between the rectus femoris and the TFL in order to retract and protect those muscles. The cobra retractors were replaced intracapsularly, with one over the superior neck in the pocket created by the base of the greater trochanter and the other on the femoral head. The capsulotomy was extended laterally to the base of the greater trochanter and medially to the lesser trochanter. This required externally rotating the hip. Once the lesser trochanter had been identified, a neck cut was planned in order to cut below the fracture site. The neck was cut at 60 degrees of external rotation along that line. A second cut was performed to remove a large napkin ring and facilitate head extraction. The napkin ring cut and femoral head were removed. ? A broad anterior wall retractor was placed between the labrum and the anterior capsule so that the anterior capsule would prevent capturing and pinching the femoral nerve anteriorly. An additional retractor was placed on the posterior wall. External rotation and traction were applied through the [place] table so that the cut surface of the femoral neck would not restrict access to the acetabulum. The labrum was excised sharply and the pulvinar was excised with electrocautery to limit bleeding from branches of the obturator artery. Acetabular reamers were selected based on preoperative templating and measurements of the excised femoral head. These were introduced into the acetabulum. Fluoroscopy was utilized to replicate a standing AP pelvis radiograph by centering over the pelvis, rotating until there was appropriate symmetry between the obturator foramen, and introducing caudal tilt to match the position of the pubic symphysis relative to the sacrococcygeal junction according to the patient?s anatomy. Fluoroscopy was utilized to ensure appropriate reaming depth. Once satisfied with the reaming depth corresponding to the preoperative template and the pinch fit between the columns, an appropriate sized acetabular cup was selected which would provide 1 mm of press-fit. This cup was introduced and manipulated until appropriate abduction and anteversion angles were obtained with careful attention to appropriate abduction and anteversion angles as evaluated by the position of the cup relative to the anterior and posterior pedersen of the acetabulum and the AP fluoroscopy which recreated the patient?s standing radiograph. The cup was impacted into place. Two screws were placed to provide additional fixation. Peripheral osteophytes were removed. The acetabular liner was then placed with care to ensure locking of the locking mechanism. Attention was then turned to the femur. All retractors were removed, traction was released, a retractor was placed in the interval between the hip capsule and the gluteus minimus, and the hip was externally rotated to 90 degrees. Traction was applied through the [place] table to tension the lateral capsule and this was released using electrocautery. Traction was released and a [place] hook was placed posteriorly around the proximal femur at the level of the vastus ridge. The table height was lowered in order to restrict the tension on the anterior structures during hip hyperextension to limit the risk of femoral nerve palsy. With traction off and the hip at 90 degrees of external rotation, the hip was hyperextended and adducted while manually elevating the femur away from the acetabulum with the [place] hook to ensure it would not be caught behind the greater trochanter. An asymmetric retractor was placed over the calcar and a broad double-pronged retractor was placed over the greater trochanter. The tag stitch capturing the lateral leaflet of the capsule was moved to the medial side, leaving the conjoined and piriformis tendons isolated in the face of the greater trochanter. The hip was externally rotated and elevated. A release of the conjoined tendon was utilized. The canal was opened with an opening broach and a rasp was used to remove cancellous bone. A rongeur was used to remove the residual lateral bone at the base of the greater trochanter to avoid placing the stem in varus. The femur was then broached to the appropriate sized stem yielding good rotational fit and fill of the canal as well as appropriate version of the stem trial. Neck and head trials were placed, all retractors were removed and the hip was returned to neutral abduction and extension. I then reduced the hip. An AP pelvis fluoroscopic image matching the preoperative standing radiograph was obtained with both lesser trochanters visible and both hips in 40 degrees of external rotation. Initial trials were performed with a size 3 broach and a standard offset neck. This demonstrated instability with +1.5 and +5 head trials but good stability with a +8.5 head trial. Fluoroscopy at that time indicated the hip was considerably lengthened relative to the contralateral side. I therefore transitioned to a size 3 high offset trial and had good stability as well as appropriate leg length and offset with a +5 head. I returned to the broaching position and removed the broach and began preparing for cement. I irrigated down the canal. I placed a cement restrictor. I irrigated again with a canal brush. I placed epinephrine-soaked vaginal packing on top of the cement restrictor. I placed a whistle-tip catheter down the canal the 2nd any additional blood. I removed the vaginal packing and introduced cement. I digitally pressurized this. I removed the whistle-tip catheter. I used the rn plastics on the cement gun to further pressurize the cement mantle. I introduced the stem and pushed it down to the middle line on the calcar portion of the stem to match the point at which I had calcar planed during trialing. I allowed the cement to dry. After implanting a size 3 high offset cemented stem I again trialed with a +5 head and found that there was good stability however the lag was considerably longer than the other side. I therefore downsized to a +1.5 head and found more appropriate leg length with maintenance of stability. The definitive stem was placed and the trunnion was cleaned and dried. I placed a ceramic head onto the trunnion and impacted it into place on the Vazquez taper. ? All retractors were removed and the hip was reduced. A dilute mixture of betadine and peroxide was used to bathe the soft tissues during final fluoroscopic assessment. Appropriate component positioning was confirmed on an AP pelvis radiograph with the operative and nonoperative legs in 40 degrees of external rotation, evaluating leg length and offset. Appropriate stem fill was e valuated on an AP hip radiograph with the operative leg in neutral rotation. No fractures were identified on these radiographs. Stability was satisfactory with a 90 degree external rotation test as well as a 45 degree drop test. The hip was copiously irrigated with pulse lavage. The capsule was closed with absorbable interrupted suture. The TFL fascia was closed with barbed suture while carefully protecting the lateral femoral cutaneous nerve from entrapment. A mixture of Ropivacaine, Epinephrine, Clonidine and Toradol was infiltrated throughout the soft tissues. The skin was closed with 2-0 and 3-0 sutures. Surgical glue was applied and a soft dressing was placed. ? The sponge, instrument and needle counts were reported as being correct at the end of the case. ?No obvious complications occurred. The patient was transferred from the [place] table back to a stretcher. The patient emerged from anesthesia without difficulty and was taken to the PACU in a stable condition. Plan for aftercare: ? ? Anterior hip precautions ? Weightbearing as tolerated ? ? Mobilization with physical therapy ? Aspirin 81 twice per day for DVT prophylaxis ? patient's pain control is going to be extremely challenging. She was on Suboxone preoperatively due to back pain. She required considerably more opioids during the procedure than is typical for this type of case. She should be maintained on her baseline Suboxone but I anticipate her having ongoing pain control difficulties postoperatively ? Anticipate discharge home eventually. I am unsure how long her inpatient stay will end up being given her anticipated difficulties with pain control ? Follow up at [facility] with a physician clinic assistant in 2 weeks ? Detailed postoperative instructions available at [email or web address]
[2024-02-12] MEDS: HYDROMORPHONE 1 MG INJ IV (12:10)
[2024-02-12] MEDS: hydrOXYzine 50 MG/ML INJ 25 MG IM (12:10)
[2024-02-12] MEDS: ONDANSETRON 4 MG/2 ML INJ IV (12:10)
[2024-02-12] MEDS: OXYCODONE IR 5 MG TABLET PO (12:16)
--- NOTE | 2024-02-12 12:46 | PT-IP ANOTE ---
Pt just arrived to the floor and is not ready to be seen at this time, will see tomorrow.
[2024-02-12] MEDS: VENLAFAXINE ER 75 MG CAP 225 MG PO (12:58)
[2024-02-12] MEDS: LACTATED RINGERS 1,000 ML 100 ML IV (12:59)
--- NOTE | 2024-02-12 13:35 | PM.HP.1 ---
History of Present Illness History of Present Illness Date Patient Seen: 02/12/24 Time Patient Seen: 13:35 Chief complaint: fell/rt leg pain Narrative: This is a very pleasant 68-year-old female who is under the primary care of Dr. Cooper. Patient has history of chronic pain related to cervical spine disease. She has previously had a fusion. She is on Suboxone 8 mg 3 times a day. She was exercising at home when she tripped and fell and fractured her hip. She was admitted for surgical repair in his just returned from a total hip replacement. Patient is feeling markedly better. She had a very difficult night had difficulty getting her pain under control but now feels much relief. She otherwise had been in her usual state of health. She denied any history of fevers, chills, rashes, unintentional weight loss, headaches etc.. She denies any chest pain or shortness a breath She states that she has been working on improving her exercise and it has been working with a equestrian trainer for this reason. She denies any family history of osteoporosis and unclear if she has had a bone density herself. Past medical history: 1. Cervical spine disease with spinal stenosis status post fusion 2. Chronic pain 3. Depression with anxiety 4. PTSD 5. Hypertension 6. Hyperlipidemia 7. GERD 8. History of tobacco abuse, quit in 2005 See medication list Allergies: Codeine Fluoxetine causes paranoia Health related behavior: Patient does not use alcohol on a regular basis Patient previously smoked but quit in 2005 Patient does not use recreational drugs Past surgical history: 1. Cervical spine fusion 2. Cholecystectomy Family history: Father had a stroke and pancreatic cancer and from this Mother at 87 from old age Patient has half siblings but no family history of osteoporosis Social history: Patient is and her is present Patient has 2 children. One who lives in [place] and 1 who lives in [facility] 12 point review of systems is otherwise negative [facility] Medical History (Updated 02/12/24 @ 03:46 by Julia Abrams MD) Degenerative disc disease Spinal stenosis Family History Mother Hypertension Cancer Father Stroke Social History marital status: household members: spouse occupational status: employed Smoking Status: Former smoker alcohol intake: never substance use type: does not use Meds Home Medications and Allergies Home Medications Medication Instructions Recorded Confirmed Type CHOLECALCIFEROL (VITAMIN D3) 5,000 iu PO Q DAY ##0 08/25/10 02/11/24 History (Vitamin D3) VITAMIN C - 1,000 mg PO Q DAY ##0 08/25/10 02/11/24 History (VITAMIN C) Vitamin E (Alpha-Tocopherol) 800 unit PO Q DAY ##0 08/25/10 02/11/24 History COENZYME Q10/VITAMIN E (CO-Q-10 200 mg PO QDAY ##0 03/13/13 02/11/24 History 200mg) [FISH OIL] 1,000 mg PO DAILY ##0 03/13/13 02/11/24 History [GLUCOSAMINE] 1,500 mg PO Q DAY ##0 03/13/13 02/11/24 History buprenorphine 8 mg-naloxone 2 mg 8 film sublingual TID ##0 03/13/13 02/11/24 History sublingual film (Suboxone) gabapentin 600 mg tablet 600 mg PO TID ##0 03/13/13 02/11/24 History (Neurontin) nadolol 20 mg tablet (Corgard) 40 mg PO QDAY ##0 03/13/13 02/11/24 History Miralax 1 tbsp PO DAILY 02/11/24 02/11/24 History vitamin B complex 1 tab PO DAILY 02/11/24 02/11/24 History Allergies Allergy/AdvReac Type Severity Reaction Status Date / Time codeine [CODEINE] AdvReac Severe HEAD ABOUT Verified 02/11/24 19:44 TO EXPLODE & BAD NAUSEA & VOMTING. fluoxetine [FLUOXETINE] AdvReac Severe PARANOID. Verified 02/11/24 19:44 Exam Vital Signs (past 8 hours): - 02/12/24 07:54 02/12/24 11:54 02/12/24 11:59 Temperature 98.1 F 98.4 F Pulse Rate 92 H 98 H 95 H Respiratory Rate 16 25 H 25 H Blood Pressure 180/67 H 162/68 H 140/51 L Pulse Oximetry 98 91 93 Oxygen Delivery Method Room Air Nasal Cannula Nasal Cannula Oxygen Flow Rate 4 3 02/12/24 12:07 02/12/24 12:09 02/12/24 12:14 Temperature Pulse Rate 97 H 92 H 94 H Respiratory Rate 19 20 19 Blood Pressure 156/63 H 166/64 H 136/78 Pulse Oximetry 94 95 95 Oxygen Delivery Method Nasal Cannula Nasal Cannula Nasal Cannula Oxygen Flow Rate 3 3 3 02/12/24 12:24 02/12/24 12:30 02/12/24 13:04 Temperature 97.1 F L Pulse Rate 89 94 H 95 H Respiratory Rate 18 19 14 Blood Pressure 158/61 H 164/64 H 137/57 L Pulse Oximetry 95 93 97 Oxygen Delivery Method High Flow Nasal Cannula Nasal Cannula Oxygen Flow Rate 3 3 1 Oxygen Delivery Method Nasal Cannula Oxygen Flow Rate 1 Narrative Exam Narrative: Patient is somewhat sleepy. She is able to answer questions with the assistance of her . She has just been back from the OR for about 20 minutes. Vital signs are stable Patient is afebrile HEENT is unremarkable Neck: Supple without adenopathy Chest: Clear to auscultation without wheezes rhonchi or crackles Cor: Regular rate and rhythm without a murmur Abdomen: Positive bowel sounds, soft, nontender, nondistended Extremities: No edema pulses intact Skin no abnormalities Objective Labs 02/12/24 05:25 02/12/24 05:25 Labs: Laboratory Results - last 24 hr 02/11/24 02/11/24 02/11/24 19:23 21:00 22:16 WBC 8.9 RBC 3.12 L Hgb 10.8 L Hct 30.8 L MCV 98.8 MCH 34.7 H MCHC 35.1 RDW 13.2 Plt Count 169 Neut % (Auto) 85.0 H Lymph % (Auto) 10.2 L [place] % (Auto) 3.9 Eos % (Auto) 0.2 L Baso % (Auto) 0.7 Neut # (Auto) 7500 H Lymph # (Auto) 900 L [place] # (Auto) 300 Eos # (Auto) 0 Baso # (Auto) 100 Sodium 137 Potassium 4.3 Chloride 107 Carbon Dioxide 28 BUN 19 H Creatinine 0.49 L Estimated GFR > 60 BUN/Creatinine Ratio 38.8 H Glucose 140 H Calcium 9.2 Total Bilirubin 0.5 AST 26 ALT 20 Alkaline Phosphatase 82 Total Protein 7.6 Albumin 4.1 Globulin 3.5 Albumin/Globulin Ratio 1.2 Lipase 95 Urine Color Yellow Urine Appearance Clear Urine pH 7.5 Ur Specific [place] 1.015 Urine Protein Negative Urine Glucose (UA) Negative Urine Ketones Negative Urine Occult Blood Trace-intact Urine Nitrate Negative Urine Bilirubin Negative Urine Urobilinogen 0.2 Ur Leukocyte Esterase Trace H Urine RBC 5-10/hpf H Urine WBC 5-10/hpf H Ur Squamous Epith Cells 0-1 /hpf Ur Transition Epith Cell 1-5/hpf Urine Bacteria Few (2-10) H Ur Culture Indicated? Specimen cultured Vol Urine Centrifuged 10ml (spun) Blood Type A Positive Antibody Screen Negative 02/12/24 05:25 WBC 9.7 RBC 2.93 L Hgb 10.3 L Hct 28.9 L MCV 98.7 MCH 35.4 H MCHC 35.8 RDW 13.3 Plt Count 168 Neut % (Auto) 80.6 H Lymph % (Auto) 10.6 L [place] % (Auto) 8.1 Eos % (Auto) 0.5 L Baso % (Auto) 0.2 Neut # (Auto) 7800 H Lymph # (Auto) 1000 L [place] # (Auto) 800 Eos # (Auto) 0 Baso # (Auto) 0 Sodium 138 Potassium 3.9 Chloride 105 Carbon Dioxide 34 H BUN 15 Creatinine 0.46 L Estimated GFR > 60 BUN/Creatinine Ratio 32.6 H Glucose 108 Calcium 9.1 Total Bilirubin AST ALT Alkaline Phosphatase Total Protein Albumin Globulin Albumin/Globulin Ratio Lipase Urine Color Urine Appearance Urine pH Ur Specific [place] Urine Protein Urine Glucose (UA) Urine Ketones Urine Occult Blood Urine Nitrate Urine Bilirubin Urine Urobilinogen Ur Leukocyte Esterase Urine RBC Urine WBC Ur Squamous Epith Cells Ur Transition Epith Cell Urine Bacteria Ur Culture Indicated? Vol Urine Centrifuged Blood Type Antibody Screen Assessment & Plan Assessment & Plan narrative: 68-year-old female with a history of chronic pain on Suboxone who sustained a ground level fall and hip fracture Assessment 1. Hip fracture Plan: Status post total hip replacement. Continue per ortho Assessment 2. Chronic pain Plan: Will continue with Suboxone. Not unusual to require high levels of pain medication to displace the receptors from the Suboxone especially at this high dose of Suboxone. Will continue with fentanyl as needed. This tends to be most effective. Will continue with same gabapentin Assessment 3. Depression anxiety Plan: Continue on the venlafaxine 225 mg daily Assessment 4. Hypertension, patient not currently on medications. She has on a beta-peter, nadolol but this I think is more for her spine disease. We will continue to monitor blood pressure. Suspect in part related to pain but we will continue to monitor Assessment 5. DVT prophylaxis Plan per ortho Disposition: Hope that patient will be able to be discharged to home. 76 minute was spent with patient discussing with physicians, nursing, reviewing her chart, formulating a plan and documentation. Code status is full code
[2024-02-12] MEDS: BUPRENORPHINE/NALOXONE 8MG/2MG 1 TAB SL ×2 (14:38→20:24)
[2024-02-12] MEDS: GABAPENTIN 600 MG TABLET 1200 MG PO ×2 (14:38→20:24)
[2024-02-12] MEDS: ASPIRIN EC 81 MG TABLET PO (20:23)
[2024-02-12] MEDS: DOCUSATE 100 MG CAPSULE PO (20:24)
[2024-02-12] MEDS: SODIUM CHLORIDE 0.9% FLUSH 10 ML IV (20:28)
[2024-02-13] MEDS: LACTATED RINGERS 1,000 ML 100 ML IV (00:18)
[2024-02-13] MEDS: CEFAZOLIN 2 GM/100 ML PREMIX 100 ML IV (00:19)
[2024-02-13 00:38] VITALS: BP 142/61; PULSE 89; RESP 16; TEMP 36.2; O2SAT 95
[2024-02-13 04:00] VITALS: BP 127/66; PULSE 80; RESP 17; TEMP 36.4; O2SAT 92
[2024-02-13 05:56] LABS: Add Manual Diff / Slide Review NO; BUN Creatinine Ratio 31.6 (6-22); Basophils Absolute Auto 0 /uL (0-100); Basophils Percent Auto 0.3 % (0-2); Blood Urea Nitrogen 18 mg/dL (7-17); Calcium 8.2 mg/dL (8.4-10.2); Carbon Dioxide 32 mmol/L (22-32); Chloride 105 mmol/L (98-107); Eosinophils Absolute Auto 0 /uL (0-450); Eosinophils Percent Auto 0.2 % (2-4); Estimated Glomerular Filt Rate > 60 mL/min (>60); Glucose 98 mg/dL (80-110); HEMOLYSIS < 15 (0-50); Hemoglobin 7.7 g/dL (12.0-16.0); Lymphocytes Absolute Auto 1300 /uL (1100-4500); Mean Corpuscular HGB Conc 35.2 % (30-36); Mean Corpuscular Hemoglobin 35.1 PG (26-34); Mean Corpuscular Volume 99.9 fL (80-100); Monocytes Absolute Auto 700 /uL (0-900); Monocytes Percent Auto 8.3 % (3-14); Neutrophils Absolute Auto 6200 /uL (1500-7000); Neutrophils Percent Auto 75.2 % (50-75); Platelet Count 132 X10^3/uL (150-400); Potassium 4.4 mmol/L (3.4-5.1); Red Cell Distribution Width 13.3 % (11.6-14.8); Sodium 137 mmol/L (137-145); White Blood Cell Count 8.2 X10^3/uL (4.5-11.0)
[2024-02-13 08:00] VITALS: BP 154/62; PULSE 99; RESP 16; TEMP 36.7; O2SAT 96
[2024-02-13] MEDS: GABAPENTIN 600 MG TABLET 1200 MG PO ×2 (08:23→14:35)
[2024-02-13] MEDS: DOCUSATE 100 MG CAPSULE PO (08:24)
[2024-02-13] MEDS: VENLAFAXINE ER 75 MG CAP 225 MG PO (08:24)
[2024-02-13] MEDS: ASPIRIN EC 81 MG TABLET PO (08:24)
[2024-02-13] MEDS: BUPRENORPHINE/NALOXONE 8MG/2MG 1 TAB SL ×2 (08:24→14:35)
[2024-02-13] MEDS: ACETAMINOPHEN 325 MG TABLET 650 MG PO ×2 (08:25→14:36)
[2024-02-13] MEDS: SODIUM CHLORIDE 0.9% FLUSH 10 ML IV (08:26)
--- NOTE | 2024-02-13 08:29 | PM.PN.1 ---
Subjective Subjective Interval history: Patient is seen postoperatively. Resting comfortably in chair. Has not ambulated much yet just to and from the chair. Reports that she slept well overnight. Reports her pain well-controlled Exam Vital Signs (past 8 hours): - 02/13/24 00:38 02/13/24 04:00 Temperature 97.2 F L 97.6 F Pulse Rate 89 80 Respiratory Rate 16 17 Blood Pressure 142/61 H 127/66 Pulse Oximetry 95 92 Oxygen Flow Rate 1 1 Oxygen Delivery Method Nasal Cannula Oxygen Flow Rate 1 Narrative Exam Narrative: Right lower extremity examination: Dressing clean dry and intact. Flexing and extending hallux ankle and knee. Objective Imaging Pelvis Xray: My impression: Postoperative pelvis x-ray demonstrates cemented total hip arthroplasty place. Operative side with appropriate leg length and offset. Acetabular component with appropriate abduction and anteversion. Labs 02/13/24 05:15 02/13/24 05:15 Labs: Laboratory Results - last 24 hr 02/13/24 05:15 WBC 8.2 RBC 2.20 L Hgb 7.7 L Hct 22.0 L MCV 99.9 MCH 35.1 H MCHC 35.2 RDW 13.3 Plt Count 132 L Neut % (Auto) 75.2 H Lymph % (Auto) 16.[address] [place] % (Auto) 8.3 Eos % (Auto) 0.2 L Baso % (Auto) 0.3 Neut # (Auto) 6200 Lymph # (Auto) 1300 [place] # (Auto) 700 Eos # (Auto) 0 Baso # (Auto) 0 Sodium 137 Potassium 4.4 Chloride 105 Carbon Dioxide 32 BUN 18 H Creatinine 0.57 Estimated GFR > 60 BUN/Creatinine Ratio 31.6 H Glucose 98 Calcium 8.2 L [facility] Medical History (Updated 02/12/24 @ 03:46 by Julia Abrams MD) Degenerative disc disease Spinal stenosis Family History Mother Hypertension Cancer Father Stroke Social History marital status: household members: spouse occupational status: employed Smoking Status: Former smoker alcohol intake: never substance use type: does not use Assessment & Plan Assessment and plan (1) Fracture of hip: Qualifiers: Encounter type: initial encounter Fracture type: closed Laterality: right Qualified Code(s): S72.001A - Fracture of unspecified part of neck of right femur, initial encounter for closed fracture Status: Acute Assessment & Plan narrative: 1. I am pleasantly surprised by the patient's pain control at this point in time. Given her baseline opiate therapy, anticipated postoperative pain would be much worse. She reports that it has been well controlled since surgery. Moving forward we do have to be cautious about balancing the risk of respiratory depression with satisfactory pain control for her however I am quite encouraged by how things are going thus far 2. Weightbearing as tolerated with anterior hip precautions 3. Hemoglobin this morning is 7.7. Generally refrain from transfusion unless patients are under 7 as there is an increased risk of periprosthetic joint infection-which can be catastrophic-when patients receive allogeneic transfusions following joint replacement. She did start anemic, with a hemoglobin of 10, so this is not surprising. Have ordered a albumin bolus for this morning to try to help her avoid orthostatic hypotension when she works with physical therapy 4. Anticipate eventual discharge home, we will defer to primary team regarding timing 5. Follow up in the outpatient setting with our team in 2 weeks for wound check 6. Detailed postoperative instructions available here: [email or web address] Please provide patient a link to this video as she came in through the ED and will not have received it from our clinic
--- NOTE | 2024-02-13 08:47 | PC.NURSE ---
Addendum entered by Bette Zamora R.N. 02/13/24 09:58: Patient is tolerating her iv albumin well. Infusing at 60ml/hr. Original Note: Patient has been up to void after altamirano being removed at 0600. She is a one person assist with walker and is using the commode. is aware of low H&H at 7.7 and 22.0. Patient will be getting some albumin iv. She was just given her medications with suboxone and tylenol. Up to the commode now. CMS wnl to lower extremities, and aquacel dressing is cdi.
[2024-02-13] MEDS: ALBUMIN HUMAN 50 GM/200 ML VIAL IV (09:08)
--- NOTE | 2024-02-13 09:37 | CM.DPNOTE ---
Addendum entered by AUSTIN Vidal 02/13/24 10:46: GEOSPATIAL SPECIALIST met with pt and spouse in room. Confirm no CM needs at dc. Pt reports doing well and excited to dc home. SL Original Note: DCP Note GEOSPATIAL SPECIALIST reviewed EMR. Per RN, pt has been OOB. One person assist with walker. Per PT, could dc home with spouse but concerned about H&H. Requested order for walker for home use. GEOSPATIAL SPECIALIST placed order for walker for home use. Per previous CM notes, no additional CM needs at this time. Plan: anticipate home with spouse when medically stable- pending appropriate H&H. CM team will continue to monitor for final DCP recommendations. AUSTIN Vidal
--- NOTE | 2024-02-13 09:45 | PT.IIE ---
Current Diagnoses Fracture of unspecified part of neck of right femur, initial encounter for closed fracture (02/11/24) Surgery Performed Operation Date: 02/12/24 07:00 Actual Procedures p Total Hip Arthroplasty, ANTERIOR APPROACH(Right) - Tahir Brewer MD Medical History (Last Reviewed 11/27/19 @ 07:19 by Mimi Sanchez DO) Degenerative disc disease Spinal stenosis Physical Therapy Inpatient Evaluation/Re-Eval M1 PT/OT-IP Prior Functional Status Start: 02/13/24 08:40 Freq: NEEDED Status: Active Protocol: Document 02/13/24 08:50 MB (Rec: 02/13/24 09:45 MB [id number]) Medical Review Prior Functional Status Medical History Reviewed Yes Diet/Fluid Consistency Regular Communication WNLs Mobility and Gait I Activities of Daily Living and IADL's I Social History Household Members spouse Living Arrangements House Number of Floors (Floors) One Floor Number of Stairs To Enter/Railing? 2 or 4 steps with no rails to enter Home Environment High Toilet,Walk in Shower Home Equipment Straight Cane,Shower Seat with Backrest,Grab Bars Near Toilet,Grab Bars In Shower Employment Status Retired M2 PT-IP Current Condition Start: 02/13/24 08:40 Freq: NEEDED Status: Active Protocol: Document 02/13/24 08:50 MB (Rec: 02/13/24 09:45 MB [id number]) Physical Therapy Current Condition Current Condition Evaluation Date 02/13/24 Treatment Diagnosis R hip fracture s/p anterior hip replacement M3 PT-IP Subjective Start: 02/13/24 08:40 Freq: NEEDED Status: Active Protocol: Document 02/13/24 08:50 MB (Rec: 02/13/24 09:45 MB [id number]) Subjective Physical Therapy Visit Type Type Initial Evaluation Visit Start Time 08:50 Visit Stop Time 09:36 Notes Pt's Hgb is 7.7 and she has had no symptoms with getting up to chair or mobility this a .m. Number of HEAD SCORER Visits 0 Physical Therapy Visit Comments Patient Comments Pt denies light-headedness Therapy Pain Assessment Pain When Pain Assessed At Rest Pain Present Pain Present Pain Reported Location Right Upper Leg Intensity 5 Scale Used Numeric (0 - 10) M4 PT-IP Mobility and Gait Start: 03/17/24 08:40 Freq: NEEDED Status: Active Protocol: Document 02/13/24 08:50 MB (Rec: 02/13/24 09:45 MB [id number]) PT-Bed Mobility Assessment Rolling Level of Assist Standby Assistance Supine to Sit Supine to Sit Standby Assistance,1 Person Assistance Sit to Supine Sit to Supine Standby Assistance,1 Person Assistance Scooting Scooting to Edge of Bed Standby Assistance PT-Transfer Assessment Sit to and From Stand Sit to and from Stand Contact Guard Assistance,1 Person Assistance,Use of Upper Extremities Equipment Transfer Assistive Device Gait Belt,Front Wheeled Walker Orthotic/Prosthetic Devices or Brace: No Transfers Transfer Destination Bed Transfer Technique Ambulation Transfer Ability Level of Assist Contact Guard Assistance,1 Person Assistance,Use of Upper Extremities Comments Mobility Comments PT provides gait belt and cues pt how to position around right foot to use to help move right leg up and into the bed and then back out. Pt requires cues for hand placement for transfers and constant cueing for stepping: for forward, walker, right foot and left foot and for backward, left foot, right foot and then walker and PT writes down for pt and Gait Assessment Gait Gait Assistance Required: Contact Guard Assist Distance (Feet) 100 Able to Maintain Weight Bearing Status Yes During Gait Assistive Devices Assistive Device Gait Belt,Front Wheeled Walker Orthotic/Prosthetic Devices or Brace: No Gait Deviations General Gait Pattern Antalgic,Decreased Stride Length,Decreased Feet Clearance,Step-to Gait Factors Limiting Gait Function Factors Limiting Gait Function Decreased Activity Tolerance, Pain,Poor Safety Awareness Comments Gait Comments See above, ongoing cues for stepping. Pt gait trains 5'x2 and thenn 100'x2 and backwards walking included to practice Stair Climbing Assessment Evaluation Level of Assist On Stairs Minimal Assistance,1 Person Assistance Devices Stair Climbing Assistive Devices Front Wheel Walker Technique/Endurance Stair Climbing Direction Ascend and Descend Stair Climbing Technique Step to Step Number of Steps Climbed 3 Query Text: Stair Climbing Set # Repetitions (reps) 1 Comments Stair Climbing Comments Taught pt and use of walker in front and then ascend backwards with left foot, then right foot and then walker and then reverse for descend PT-Balance Assessment Sitting Balance and Reactions Static Sitting Balance Ability Good Dynamic Sitting Balance Ability Good Standing Balance and Reactions Static Standing Balance Ability Good Dynamic Standing Balance Ability Fair Device Used RW M5 PT-IP Objective Assessments Start: 02/13/24 08:40 Freq: NEEDED Status: Active Protocol: Document 02/13/24 08:50 MB (Rec: 02/13/24 09:45 MB [id number]) Orientation Orientation/Cognition Level of Alertness Alert Orientation Name,Age,Birthday,Month,Date, Year,Day of Week,Place, Situation Language Function Ability No Deficits Noted Safety Awareness Decreased Safety Awareness Memory Description No Deficits Noted Gross Range of Motion Upper Extremity ROM Assessment Within Functional Limits Lower Extremity ROM Assessment Right Impaired Strength Upper Extremity Strength Assessment Within Functional Limits Lower Extremity Strength Assessment Right Impaired Comments Strength Comments Did not MMT RLE post-op and ankle and knee are functional Other Assessments Other Other Assessments Some edema in left UE today and mild edema post-op right LE M6 PT-IP Treatment Start: 02/13/24 08:40 Freq: NEEDED Status: Active Protocol: Document 02/13/24 08:50 MB (Rec: 02/13/24 09:45 MB [id number]) Physical Therapy Treatment Exercises Exercises Ankle Pumps,Gluteal Sets,Quad Sets,Heel Slides Education Education Provided Precautions,Weight Bearing Status,Post-Op Packet,Safety Other Treatments Other Treatment Performed PT ed pt and in benefits of walker and obtains order and issues one and sets up for pt M7 PT-IP Assessment and Plan Start: 02/13/24 08:40 Freq: NEEDED Status: Active Protocol: Document 02/13/24 08:50 MB (Rec: 02/13/24 09:45 MB [id number]) PT Summary Assessment and Plan Potential Rehabilitation Potential Good Status of Condition at Evaluation Evolving Summary Impairments Pain,ROM,Strength,Balance,Bed Mobility,Transfers,Gait, Activity Tolerance Progress Towards Goals Progressing Toward Goals Assessment Summary Pt is a pleasant 68 y/o female who is moving well despite low Hgb post-op right hip after hip fracture. is nearby for treatment and they do well with PT training today. Goals Bed Mobility Goal Independent Transfer Goal Independent,Front Wheeled Walker Gait Goal Independent,Front Wheel Walker Gait Distance 100 Other Goals Pt will ascend and descend 3 steps with RW and PT or assistance with CGA. Days to Meet Goals 2 Frequency of Treatment Frequency Of Treatment Once a Day Treatment Plan Physical Therapy Treatment Plan Bed Mobility Training,Transfer Training,Gait Training, Therapeutic Exercise,Balance Retraining,Post Op Education, Discharge Planning,Hot or Cold Pack,Neuromuscular Re-ed, Manual Therapy Precautions Anterior Hip Precautions No Hip Extension,No Hip External Rotation Weight Bearing Status Weight Bearing Status Weight Bear as Tolerated Recommendations To Nursing Amount of Assist Needed Standby Assistance,1 Person Assist Discharge Recommendations PT Discharge Recommendations Home with 21/06 Assist Available,Outpatient PT Transportation Needs at Discharge Private Vehicle
[2024-02-13 12:26] VITALS: BP 152/60; PULSE 92; RESP 16; TEMP 36.7; O2SAT 96
--- NOTE | 2024-02-13 12:40 | P.PN_ITS ---
Subjective Subjective Date Patient Seen: 02/13/24 Time Patient Seen: 12:40 Interval history: Patient continues to have improved pain control from prior to having her surgery. Urine came back showing evidence of UTI with Gram-negative bacilli and sensitivities pending. Patient with no known drug allergies to antibiotics Exam Vital Signs (past 8 hours): - 02/13/24 08:00 02/13/24 12:26 Temperature 98.0 F 98.0 F Pulse Rate 99 H 92 H Respiratory Rate 16 16 Blood Pressure 154/62 H 152/60 H Pulse Oximetry 96 96 Oxygen Delivery Method Nasal Cannula Oxygen Flow Rate 1 Objective Labs 02/13/24 05:15 02/13/24 05:15 Labs: Laboratory Results - last 24 hr 02/13/24 05:15 WBC 8.2 RBC 2.20 L Hgb 7.7 L Hct 22.0 L MCV 99.9 MCH 35.1 H MCHC 35.2 RDW 13.3 Plt Count 132 L Neut % (Auto) 75.2 H Lymph % (Auto) 16.0 L [place] % (Auto) 8.3 Eos % (Auto) 0.2 L Baso % (Auto) 0.3 Neut # (Auto) 6200 Lymph # (Auto) 1300 [place] # (Auto) 700 Eos # (Auto) 0 Baso # (Auto) 0 Sodium 137 Potassium 4.4 Chloride 105 Carbon Dioxide 32 BUN 18 H Creatinine 0.57 Estimated GFR > 60 BUN/Creatinine Ratio 31.6 H Glucose 98 Calcium 8.2 L PFSH Medical History (Updated 02/12/24 @ 03:46 by Julia Abrams MD) Degenerative disc disease Spinal stenosis Family History Mother Hypertension Cancer Father Stroke Social History marital status: household members: spouse occupational status: employed Smoking Status: Former smoker alcohol intake: never substance use type: does not use
--- NOTE | 2024-02-13 13:01 | P.DS_ITS ---
History of Present Illness History of Present Illness Date Patient Seen: 02/13/24 Time Patient Seen: 13:02 Chief complaint: fell/rt leg pain Narrative: This is a very pleasant 68-year-old female who is under the primary care of Dr. Cooper. Patient has history of chronic pain related to cervical spine disease. She has previously had a fusion. She is on Suboxone 8 mg 3 times a day. She was exercising at home when she tripped and fell and fractured her hip. She was admitted for surgical repair in his just returned from a total hip replacement. Patient is feeling markedly better. She had a very difficult night had difficulty getting her pain under control but now feels much relief. She otherwise had been in her usual state of health. She denied any history of fevers, chills, rashes, unintentional weight loss, headaches etc.. She denies any chest pain or shortness a breath She states that she has been working on improving her exercise and it has been working with a whale trainer for this reason. She denies any family history of osteoporosis and unclear if she has had a bone density herself. Past medical history: 1. Cervical spine disease with spinal stenosis status post fusion 2. Chronic pain 3. Depression with anxiety 4. PTSD 5. Hypertension 6. Hyperlipidemia 7. GERD 8. History of tobacco abuse, quit in 2005 See medication list Allergies: Codeine Fluoxetine causes paranoia Health related behavior: Patient does not use alcohol on a regular basis Patient previously smoked but quit in 2005 Patient does not use recreational drugs Past surgical history: 1. Cervical spine fusion 2. Cholecystectomy Family history: Father had a stroke and pancreatic cancer and from this Mother at 87 from old age Patient has half siblings but no family history of osteoporosis Social history: Patient is and her is present Patient has 2 children. One who lives in [place] and 1 who lives in [facility] 12 point review of systems is otherwise negative Discharge Providers Provider Date of admission: 02/11/24 19:47 Discharge Date: 02/13/24 Primary care physician: Nick Swift MD Consults: 02/11/24 19:48 Consult to Orthopedic Surgery Stat Comment: Consulting Provider: Tahir Brewer Reason for consultation: hip fracture Has provider been notified: Yes 02/12/24 12:37 Consult to Discharge Planning Routine Comment: Consult to Occupational Therapy Evaluate & Treat Comment: Physician Instructions: Evaluate and treat Consult to Physical Therapy Evaluate & Treat Comment: Physician Instructions: post op LEONEL protocol 02/13/24 09:22 Consult to Physical Therapy Evaluate & Treat Comment: Physician Instructions: walker for home use Discharge provider: Concetta Nuno MD Summary Hospital Course Discharge Diagnosis: 1. Right total hip fracture 2. Right total hip replacement on 02/12/[address] Corea 3. Postop anemia 4. UTI 5. Chronic pain 6. Hypertension 7. Depression and anxiety stable Hospital Course: Patient continues to have improved pain control from prior to having her surgery. Patient is stable on Suboxone and is not requiring any other pain medications other than Tylenol. Reviewed the note from ortho and she can be discharged to home. Pretty significant anemia post up but received albumin. Patient really is feeling great and anxious to get home. Urine came back showing evidence of UTI with Gram-negative bacilli and sensitivities pending. Patient with no known drug allergies to antibiotics and has taken Septra before without difficulty. Patient states that she would foul- smelling urine prior to coming in. Culture I believe is from the ER. is present at the time my evaluation. Patient denies any constipation. Patient denies any lightheadedness or dizziness. She does feel her pulse in her head which she states that she feels when she exercises. This is since she received the albumin dose. She has not having any chest pain. She has not having any shortness of breath. She has not having any cough or fever Twelve point review of systems is otherwise negative. Patient underwent total hip replacement on 02/12/2024. Patient has not received any further pain medication other than her outpatient Suboxone in his feeling great and able to walk around with a walker with PT in upstairs. Ortho has discharged her pending primary care approval. They want her to go home on Tylenol. She will follow up with them in 2 weeks. Patient will be discharged home on her usual medications. Patient with UTI and will be treated with Septra double strength 1 p.o. b.i.d. for 7 days. Patient will follow up with primary care provider next week. Status at Discharge Cognitive/behavioral status at discharge: oriented Functional status at discharge: uses cane/walker Overall status at discharge: patient is progressing back to baseline Exam Vital Signs (past 8 hours): - 02/13/24 08:00 02/13/24 12:26 Temperature 98.0 F 98.0 F Pulse Rate 99 H 92 H Respiratory Rate 16 16 Blood Pressure 154/62 H 152/60 H Pulse Oximetry 96 96 Oxygen Delivery Method Nasal Cannula Oxygen Flow Rate 1 Narrative Exam Narrative: Afebrile vital signs are stable other than heart rate is in the 90s. She is alert and oriented x3 in no apparent distress HEENT is unremarkable Neck: Supple without adenopathy or thyromegaly Chest: Clear to auscultation without wheezes rhonchi or crackles Cor: Regular rate and rhythm with a heart rate in the 90s but no ectopy and no murmurs Abdomen: Positive bowel sounds, soft Extremities incision is with postop dressing but dressing is clean and dry. No lower extremity edema. Pulses intact Objective Labs 02/13/24 05:15 02/13/24 05:15 Labs: Laboratory Results - last 24 hr 02/13/24 05:15 WBC 8.2 RBC 2.20 L Hgb 7.7 L Hct 22.0 L MCV 99.9 MCH 35.1 H MCHC 35.2 RDW 13.3 Plt Count 132 L Neut % (Auto) 75.2 H Lymph % (Auto) 16.0 L Dukes % (Auto) 8.3 Eos % (Auto) 0.2 L Baso % (Auto) 0.3 Neut # (Auto) 6200 Lymph # (Auto) 1300 Dukes # (Auto) 700 Eos # (Auto) 0 Baso # (Auto) 0 Sodium 137 Potassium 4.4 Chloride 105 Carbon Dioxide 32 BUN 18 H Creatinine 0.57 Estimated GFR > 60 BUN/Creatinine Ratio 31.6 H Glucose 98 Calcium 8.2 L [facility] Medical History (Updated 02/12/24 @ 03:46 by Julia Abrams MD) Degenerative disc disease Spinal stenosis Family History Mother Hypertension Cancer Father Stroke Social History marital status: household members: spouse occupational status: employed Smoking Status: Former smoker alcohol intake: never substance use type: does not use Discharge Assessment & Plan Assessment and Plan Assessment: 1. Right total hip fracture 2. Right total hip replacement on 02/12/[address] Corea 3. Postop anemia 4. UTI 5. Chronic pain 6. Hypertension 7. Depression and anxiety stable Plan of Treatment: Discharge to home in stable condition Postop follow up per ortho. They wanted her to continue on the Suboxone and then Tylenol for pain. She is comfortable with this. She will continue her other same medications including gabapentin. PT per them Will continue outpatient medications. Only new addition will be Bactrim double strength 1 p.o. b.i.d. for 7 days Discharge follow up with ortho in 2 weeks. Patient will follow up with PCP in the clinic next week will repeat a CBC at that time and suspect we will see improvement. Discharge Plan Discharge Plan Patient Disposition: Home Discharge orders & Medications Prescriptions: New sulfamethoxazole-trimethoprim 800-160 mg Tablet 1 tab PO BID Qty: 14 0RF Continued CHOLECALCIFEROL (VITAMIN D3) (Vitamin D3) 5,000 iu PO Q DAY Qty: 0 VITAMIN C - (VITAMIN C) 1,000 mg PO Q DAY Qty: 0 Vitamin E (Alpha-Tocopherol) 800 unit PO Q DAY Qty: 0 gabapentin [Neurontin] 600 MG tablet 600 mg PO TID Qty: 0 nadolol [Corgard] 20 MG tablet 40 mg PO QDAY Qty: 0 buprenorphine-naloxone [Suboxone] 8 MG/2 MG film 8 film Sublingual TID Qty: 0 COENZYME Q10/VITAMIN E (CO-Q-10 200mg) 200 mg PO QDAY Qty: 0 [FISH OIL] 1,000 mg PO DAILY Qty: 0 [GLUCOSAMINE] 1,500 mg PO Q DAY Qty: 0 vitamin B complex Tablet 1 tab PO DAILY Miralax 1 tbsp PO DAILY Follow up/Referrals: Nick Swift MD [Primary Care Provider] - Visit Report/Discharge Packet Stand Alone Forms: Patient Portal/API, Stroke Signs & Symptoms Discharge Data Primary Care Provider: Ncik Swift
--- NOTE | 2024-02-13 13:24 | CM.DPC ---
DCP Discharge Home Per MD, pt's pain is now managed and her H&H stable and tolerating diet and ambulating with PT and medically stable to d/c home with spouse today and no identified barriers to discharge. Pt preference is home today and spouse bedside and confirms he will transport home. Per PT, pt was able to participate in PT today and spouse present and recommending safe d/c home with spouse assist and outpt PT. VANNESA Gutierrez had met bedside with pt earlier this AM and pt confirms no needs anticipated and preference is home today. Plan: Patient to d/c home this afternoon via spouse POV and assist and outpt PT and outpt f/u with PCP and Ortho. No further SW needs at this time. AUSTIN Artis
[2024-02-13] MEDS: TRIMETH/SULFA 160/800 (DS) TABLET 1 TAB PO (14:34)
--- NOTE | 2024-02-13 14:48 | PC.NURSE ---
When assessing pt, noticed distal operative leg felt slightly cooler to the touch, slightly weaker pulse and slightly delayed cap refill, but still <3s. Normal pt sensation. no edema. RN was able to feel both pedal and tibialis pulse. RN notified provider about the difference between operative and non-operative leg and provider assessed. Provider said okay to discharge. RN counseled and educated patient on signs and symptoms to call the surgeon/provider and to return to ED with loss of sensation, severe unrelenting pain, loss of movement, decresed capiliary refill and cold to the touch. Pt voiced understanding.
== END 2024-02-13 16:01 | disposition home or self-care (01) | DRG 522 ==
LOC: ED 19:47 → AC 19:47
PROVIDERS: Orthopaedic Surgery Adult Reconstructive Orthopaedic Surgery; Admitting Provider Family Medicine; Emergency Provider Emergency Medicine; PCP Family Medicine; Referring Provider Emergency Medicine; Visit Provider Family Medicine
PROC: 0SR90JZ Replacement of Right Hip Joint with Synthetic Substitute, Open Approach (ICD-10-PCS; CPT 27130; principal; 2024-02-12 07:00)
DX: S72.091A Other fracture of head and neck of right femur, initial encounter for closed fracture (principal); N39.0 Urinary tract infection, site not specified; D64.89 Other specified anemias; G89.29 Other chronic pain; F32.A Depression, unspecified; F41.9 Anxiety disorder, unspecified; I10 Essential (primary) hypertension; W01.0XXA Fall on same level from slipping, tripping and stumbling without subsequent striking against object, initial encounter; Z87.891 Personal history of nicotine dependence
CPT/HCPCS: 36415; 72192; 73080; 73502; 73552; 76000; 80048; 80053; 81001; 83690; 85025; 86850; 86900; 86901; 87077; 87086; 87186; 96372; 96374; 96376; 97116; 97161; 97530; 99284; 99285; C1776; J0360; J0690; J1100; J1170; J2250; J2405; J2704; J3010; J3410; J3490; P9041

== ENCOUNTER → 2024-03-28 09:33 | Outpatient (CLI) | payer OTHER, MEDICARE, SELFPAY ==
[2024-02-11 21:46] VITALS: BMI 29.0
--- NOTE | 2024-03-28 09:36 | DI.RAD.S_ITS ---
PROCEDURE: XR DEXA AXIAL SKELETON INDICATIONS: POST MENOPAUSAL/RECENT RT HIP REPLACEMENT COMPARISON: [facility], , DEXA AXIAL SKELETON, 12/21/2016, 10:58. FINDINGS: Lumbar Spine: Bone mineral density 1.238 g/cm2, T score 1.7. There is interval 7.5% increase in total lumbar spine bone density. Left Hip: Bone mineral density 0.838 g/cm2, T score -0.9. There is interval 2.2% increase in left total hip bone density. Left Femoral Neck: Bone mineral density 0.628 g/cm2, T score -2.0. There is interval 4.3% decrease in left femoral neck bone density. Left Forearm: Bone mineral density 0.708 g/cm2, T score 0.2. Fracture Risk Calculation (when applicable): None given due to prior right hip fracture. (T score greater or equal to -1.0 to: NORMAL) (T score from -1.1 to -2.4: OSTEOPENIA) (T score less than or equal to -2.5: OSTEOPOROSIS) IMPRESSION: Osteopenia with increased 10 year fracture risk. Follow-up guidelines as follows: Osteoporosis: Consider a repeat DEXA and Vertebral Fracture Assessment (VFA) exam in 2 years or sooner if medically necessary, to reassess this patient's status. Osteopenia: Consider a repeat DEXA in 2-3 years to reassess this patient's status, or if there is a new clinical indication. Normal: Consider a repeat DEXA in 5 years or sooner, or if there is a new clinical indication. Dictated by: Thom Rico M.D. on 03/28/2024 at 11:51 Approved by: Thom Rico M.D. on 03/28/2024 at 11:54
== END ==
PROVIDERS: PCP Family Medicine; Referring Provider Family Medicine; Visit Provider Family Medicine
DX: M85.852 Other specified disorders of bone density and structure, left thigh (principal); Z78.0 Asymptomatic menopausal state; Z96.641 Presence of right artificial hip joint
CPT/HCPCS: 77080; 77081

== ENCOUNTER → 2024-06-09 12:33 | Outpatient (CLI) | payer OTHER, MEDICARE, SELFPAY ==
[2024-02-11 21:46] VITALS: BMI 29.0
[2024-06-09 13:16] LABS: Add Manual Diff / Slide Review NO; Basophils Absolute Auto 0 /uL (0-100); Basophils Percent Auto 0.6 % (0-2); Eosinophils Absolute Auto 100 /uL (0-450); Eosinophils Percent Auto 2.2 % (2-4); Hematocrit 29.8 % (36-46); Hemoglobin 10.4 g/dL (12.0-16.0); Lymphocytes Absolute Auto 1700 /uL (1100-4500); Lymphocytes Percent Auto 24.9 % (25-40); Mean Corpuscular Hemoglobin 34.4 PG (26-34); Mean Corpuscular Volume 98.3 fL (80-100); Monocytes Absolute Auto 500 /uL (0-900); Monocytes Percent Auto 8.3 % (3-14); Neutrophils Absolute Auto 4300 /uL (1500-7000); Platelet Count 215 X10^3/uL (150-400); Red Blood Cell Count 3.03 X10^6/uL (4.0-5.2); Red Cell Distribution Width 13.9 % (11.6-14.8); White Blood Cell Count 6.6 X10^3/uL (4.5-11.0)
[2024-06-09 13:52] LABS: Erythrocyte Sedimentation Rate 60 MM/HR (0-20)
[2024-06-09 22:57] LABS: C-Reactive Protein Quant 0.7 mg/dL (<1.0)
== END ==
LOC: LAB 12:36
PROVIDERS: PCP Family Medicine; Referring Provider Physician Assistant; Visit Provider Physician Assistant
DX: Z96.641 Presence of right artificial hip joint (principal)
CPT/HCPCS: 36415; 85025; 85651; 86140

== ENCOUNTER 2024-07-05 02:41 | Inpatient (IN) | payer OTHER, MEDICARE, SELFPAY ==
[2024-02-11 21:46] VITALS: BMI 29.0
[2024-07-05] VITALS (169 sets, daily range): BP systolic 58–257; BP diastolic 36–140; PULSE 59–171; RESP 10–36; TEMP 35.7–38.2; O2SAT 96–100; BMI 25.1
--- NOTE | 2024-07-05 02:46 | DI.CT.S_ITS ---
PROCEDURE: CT HEAD/BRAIN WO CON INDICATIONS: ams TECHNIQUE: Noncontrast 4.5 mm thick angled axial sections acquired from the foramen magnum to the vertex, with coronal and sagittal reformats. For radiation dose reduction, the following was used: automated exposure control, adjustment of mA and/or kV according to patient size. COMPARISON: None. FINDINGS: Image quality: Diagnostic. CSF spaces: Basal cisterns are patent. No extra-axial fluid collections. The ventricles are symmetric in size and shape. Brain: No intracranial bleeds or masses. There is cerebral volume loss for age, with resultant ventricular and sulcal prominence. There are periventricular and deep white matter chronic small vessel ischemic changes. There is intracranial internal carotid artery atherosclerosis. Skull and face: Calvarium and visualized facial bones appear intact, without suspicious lesions. Sinuses: Patient is intubated. Mucosal thickening in bilateral maxillary sinuses and ethmoid sinuses is seen. IMPRESSION: 1. No CT evidence of acute intracranial pathology. 2. Endotracheal tube in place. Mild sinusitis. No significant discrepancies from preliminary reading. Dictated by: Thom Rico M.D. on 07/05/2024 at 8:05 Approved by: Thom Rico M.D. on 07/05/2024 at 8:14
--- NOTE | 2024-07-05 02:46 | DI.CT.S_ITS ---
PROCEDURE: CT ANGIO CHEST PE PROTOCOL INDICATIONS: COVID/HYPOXIA/TACHYCARDIA TECHNIQUE: After the administration of intravenous contrast, 2 mm thick sections acquired from the pulmonary apices to the posterior costophrenic angles. 3-dimensional maximum intensity projection (MIP) coronal and sagittal reformats were then acquired through the thorax. For radiation dose reduction, the following was used: automated exposure control, adjustment of mA and/or kV according to patient size. COMPARISON: None. FINDINGS: Image quality: Diagnostic. Pulmonary arteries: Pulmonary arteries are normal in size, and demonstrate no intraluminal filling defects to suggest central pulmonary embolism. Lower Neck: No enlarged lymph nodes. Thyroid: Enlarged right thyroid lobe is seen with suggestion of hypodense thyroid nodules. Axillae: No enlarged lymph nodes. Chest Wall: Unremarkable. Bones: No aggressive appearing bony lesions.. Lungs and Pleura: Patient is intubated, ETT tip is above the daisy. There is biapical scarring. Dependent atelectasis in posterior aspect of bilateral lung pollard are seen. Small infiltrate/atelectasis are noted in posterior medial aspect of bilateral lower lobes. No pleural effusion or pneumothorax. Heart: Heart size is enlarged. No pericardial effusion. Thoracic Vessels: No aortic aneurysm. Mediastinum and Alida: Prominent mediastinal lymph nodes are seen measures up to 1.1 cm in short axis diameter in precarinal space. Esophagus: No wall thickening. No hiatal hernia. Upper Abdomen: Visualized upper abdomen solid organs and bowel loops appear normal. IMPRESSION: 1. No pulmonary emboli. No thoracic aortic aneurysm or gross dissection. 2. Dependent atelectasis scattered in posterior aspect of bilateral lung pollard. Small infiltrate/atelectasis also noted in posterior medial aspect of bilateral lower lobes. No pleural effusion or pneumothorax. ETT tip is above the daisy and is in satisfactory position. 3. Mild cardiomegaly, no pericardial effusion. Mildly enlarged mediastinal lymph nodes likely reactive in nature. No significant discrepancies from preliminary reading. Dictated by: Thom Rico M.D. on 07/05/2024 at 8:14 Approved by: Thom Rico M.D. on 07/05/2024 at 8:17
--- NOTE | 2024-07-05 02:46 | EKG_ITS ---
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
[2024-07-05] MEDS: SODIUM CHLORIDE 0.9% 1,000 ML 1000 ML IV ×3 (02:55→09:22)
[2024-07-05] MEDS: propofoL 1,000 MG/100 ML VIAL 2.523 MG IV (02:55)
--- NOTE | 2024-07-05 02:55 | ED_ITS ---
HPI - Altered Mental Status General Chief Complaint: Altered Mental Status Stated Complaint: Intubated Time Seen by Provider: 07/05/24 02:45 History of Present Illness HPI narrative: 69-year-old female presents by EMS from home for altered mental status. History obtained from EMS as patient arrives intubated and sedated. Per EMS patient was diagnosed with COVID-19 earlier in the week. This evening she went to bed ?completely normal? per , however in the middle of the night patient woke up thrashing and acting very abnormally, so he called 911. When EMS arrived patient was tachycardic at a rate of 180 beats per minute and saturating in the 80s on room air. For SVT EMS administered 2 shocks, however rate did not change. Patient was acting extremely erratically and they could not get patient to follow even simple commands and so they intubated her for airway protection. Intubated with Versed, ketamine, rocuronium Related Data Home Medications Medication Instructions Recorded Confirmed CHOLECALCIFEROL (VITAMIN D3) 5,000 iu PO Q DAY ##0 08/25/10 02/11/24 (Vitamin D3) VITAMIN C - 1,000 mg PO Q DAY ##0 08/25/10 02/11/24 (VITAMIN C) Vitamin E (Alpha-Tocopherol) 800 unit PO Q DAY ##0 08/25/10 02/11/24 COENZYME Q10/VITAMIN E (CO-Q-10 200 mg PO QDAY ##0 03/13/13 02/11/24 200mg) [FISH OIL] 1,000 mg PO DAILY ##0 03/13/13 02/11/24 [GLUCOSAMINE] 1,500 mg PO Q DAY ##0 03/13/13 02/11/24 buprenorphine 8 mg-naloxone 2 mg 8 film sublingual TID ##0 03/13/13 02/11/24 sublingual film (Suboxone) gabapentin 600 mg tablet 600 mg PO TID ##0 03/13/13 02/11/24 (Neurontin) nadolol 20 mg tablet (Corgard) 40 mg PO QDAY ##0 03/13/13 02/11/24 Miralax 1 tbsp PO DAILY 02/11/24 02/11/24 vitamin B complex 1 tab PO DAILY 02/11/24 02/11/24 Previous Rx's Medication Instructions Recorded sulfamethoxazole 800 1 tab PO BID #14 tabs 02/13/24 mg-trimethoprim 160 mg tablet Allergies Allergy/AdvReac Type Severity Reaction Status Date / Time codeine [CODEINE] AdvReac Severe HEAD ABOUT Verified 02/11/24 19:44 TO EXPLODE & BAD NAUSEA & VOMTING. fluoxetine [FLUOXETINE] AdvReac Severe PARANOID. Verified 02/11/24 19:44 Patient History Medical History (Updated 07/05/24 @ 04:58 by Xuan Nash MD) Degenerative disc disease Spinal stenosis Family History Mother Hypertension Cancer Father Stroke Social History marital status: household members: spouse occupational status: employed Smoking Status: Former smoker alcohol intake: never substance use type: does not use Smoking Status: Former smoker alcohol intake frequency: 0-2 drinks per day Substance Use Type: does not use Exam Initial Vital Signs Initial Vital Signs: Vital Signs Temperature 98.9 F 07/05/24 02:41 Pulse Rate 153 H 07/05/24 02:41 Respiratory Rate 10 L 07/05/24 02:41 Blood Pressure 233/139 H 07/05/24 02:41 Pulse Oximetry 100 07/05/24 02:41 Oxygen Delivery Method Ambu Bag 07/05/24 02:41 Const: Intubated, sedated Cardiac: Tachycardia, regular rhythm RESP: Intubated, bilateral breath sounds, clear bilaterally GI: Soft, no distension MSK: no deformity, size equal, no edema Skin: Warm, Dry, intact, no rashes Neuro: GCS 3, intubated, sedated Procedures Central Line Placement Right IJ: Patient Placed on Monitor/Pulse Ox: Yes MD Prep: mask, gown and gloves Central Line Prep: Chlorhexidine scrub Local Anesthetic: lidocaine 1% Amount of anesthesia used (mL): 5 Ultrasound Used for Placement: Yes Central Line Lumen Inserted: triple Post Procedure: sutured in place, good blood return, all ports aspirated, flushed, capped, sterile dressing applied and line stabilization device Post Procedure X-Ray: tip of catheter in good position and no pneumothorax seen Patient Tolerated Procedure: Well and No complications Complications: none Lumbar Puncture Time Out Performed: Yes Patient Position: right lateral decubitus Skin Prep: Povidone-Iodine 1% Spinal Needle Gauge: 22G Interspace Used: L4-L5 Fluid Initially Obtained: clear Complications: none Course Orders Ordered: ED Orders 07/05/24 02:45 Ventilator Order 07/05/24 02:46 CT angio chest PE protocol Stat CT head/brain wo con Stat EKG-12 Lead Stat 07/05/24 02:50 Respiratory Panel (Film Array) Stat 07/05/24 03:00 Ammonia (NH3) Stat CBC Auto Diff [Complete Blood Count AUTO DIFF] Stat CMP [Comprehensive Metabolic Panel] Stat CRP [C-Reactive Protein Quant] Stat Erythrocyte Sedimentation Rate Stat Lactate (Lactic Acid) Stat MAG [Magnesium] Stat PT [Prothrombin Time INR] Stat Procalcitonin Stat Troponin & CK Cardiac Panel Stat Type and Screen Stat 07/05/24 03:22 ABG [Arterial Blood Gas] URGENT 07/05/24 03:40 UA Complete [Urinalysis and Microscopic] Stat Urine Culture Stat Urine Drug Screen, Rapid Stat 07/05/24 03:44 Arterial Blood Gas Routine 07/05/24 04:00 Blood Culture Stat 07/05/24 04:30 Cell Count w Diff CSF Stat Glucose CSF Stat HOLD TUBE CSF Stat Meningitis Panel (Film Array) Stat Total Protein CSF Stat 07/05/24 04:45 Chest [XR chest 1V] Stat 07/05/24 04:55 CSF culture Stat 07/05/24 05:55 Sputum Culture Stat Chlorhexidine Gluconate (Chlorhexidine Gluconate 15 Ml Cup) 15 ml PO Q6HR KATTY Propofol (Propofol) 1,000 mg in 100 mls @ 25.23 mls/hr IV TITRATE KATTY; Protocol Last Titration: 07/05/24 05:36 Dose: 20 mcg/kg/min, 10.092 mls/hr Documented By: Titration: 07/05/24 04:56 Dose: 25 mcg/kg/min, 12.615 mls/hr Documented By: Titration: 07/05/24 04:49 Dose: 20 mcg/kg/min, 10.092 mls/hr Documented By: Titration: 07/05/24 04:26 Dose: 15 mcg/kg/min, 7.569 mls/hr Documented By: Titration: 07/05/24 04:20 Dose: 20 mcg/kg/min, 10.092 mls/hr Documented By: Titration: 07/05/24 03:51 Dose: 30 mcg/kg/min, 15.138 mls/hr Documented By: Titration: 07/05/24 03:49 Dose: 25 mcg/kg/min, 12.615 mls/hr Documented By: Titration: 07/05/24 03:40 Dose: 20 mcg/kg/min, 10.092 mls/hr Documented By: Titration: 07/05/24 03:35 Dose: 15 mcg/kg/min, 7.569 mls/hr Documented By: Titration: 07/05/24 03:20 Dose: 10 mcg/kg/min, 5.046 mls/hr Documented By: Admin: 07/05/24 02:55 Dose: 5 mcg/kg/min, 2.523 mls/hr Documented By: TEAGAN Fentanyl 1,000 mcg/ Dextrose 250 mls @ 14.718 mls/hr IV TITRATE [facility]; Protocol Last Titration: 07/05/24 05:34 Dose: 1 mcg/kg/hr, 21.025 mls/hr Documented By: Admin: 07/05/24 04:19 Dose: 0.7 mcg/kg/hr, 14.718 mls/hr Documented By: TEAGAN Azithromycin 500 mg/ Dextrose 250 mls @ 250 mls/hr IV NOW ONE Stop: 07/05/24 05:56 Discontinued Medications Sodium Chloride (Normal Saline 0.9%) 1,000 mls @ 1,000 mls/hr IV BOLUS ONE Stop: 07/05/24 03:45 Last Infusion: 07/05/24 05:47 Dose: 1,000 mls/hr Documented By: Infusion: 07/05/24 03:29 Dose: 0 mls/hr Documented By: Admin: 07/05/24 02:55 Dose: 1,000 mls/hr Documented By: TEAGAN Ceftriaxone Sodium 2,000 mg/ (Sodium Chloride) 100 mls @ 200 mls/hr IV NOW ONE Stop: 07/05/24 03:49 Last Infusion: 07/05/24 04:48 Dose: Infused Documented By: Admin: 07/05/24 04:06 Dose: 200 mls/hr Documented By: TEAGAN Metoprolol Tartrate (Metoprolol Tartrate 5 Mg/5 Ml Inj) 5 mg IV Q5M [facility] Stop: 07/05/24 03:41 Last Admin: 07/05/24 03:42 Dose: 5 mg Documented By: Admin: 07/05/24 03:35 Dose: 5 mg Documented By: Admin: 07/05/24 03:28 Dose: 5 mg Documented By: TEAGAN Rocuronium Baker (Rocuronium 50 Mg/5 Ml Inj) 50 mg 0.6 mg/kg (50 mg) IV NOW ONE Stop: 07/05/24 04:15 Last Admin: 07/05/24 04:20 Dose: 50 mg Documented By: TEAGAN Vital Signs Vital signs: Vital Signs - 8 hr 07/05/24 02:41 07/05/24 03:20 07/05/24 03:20 Temperature 98.9 F Pulse Rate 153 H 168 H Respiratory Rate 10 L 21 Blood Pressure 233/139 H 257/132 H Pulse Oximetry 100 100 Oxygen Delivery Method Ambu Bag Fraction of Inspired Oxygen 07/05/24 03:24 07/05/24 03:25 07/05/24 03:25 Temperature Pulse Rate 170 H Respiratory Rate 22 Blood Pressure 224/140 H Pulse Oximetry 100 Oxygen Delivery Method Fraction of Inspired Oxygen 60 07/05/24 03:28 07/05/24 03:28 07/05/24 03:30 Temperature Pulse Rate 171 H Respiratory Rate 23 Blood Pressure 167/99 H 190/125 H Pulse Oximetry 100 Oxygen Delivery Method Fraction of Inspired Oxygen 07/05/24 03:30 07/05/24 03:35 07/05/24 03:35 Temperature Pulse Rate 170 H 132 H Respiratory Rate 23 25 H Blood Pressure 182/106 H Pulse Oximetry 100 100 Oxygen Delivery Method Fraction of Inspired Oxygen 07/05/24 03:46 07/05/24 03:46 07/05/24 03:50 Temperature 96.3 F L 97.0 F L Pulse Rate 113 H 113 H Respiratory Rate 20 22 Blood Pressure 191/96 H Pulse Oximetry 100 99 Oxygen Delivery Method Fraction of Inspired Oxygen 07/05/24 03:50 07/05/24 03:55 07/05/24 03:55 Temperature 97.3 F L Pulse Rate 106 H Respiratory Rate 21 Blood Pressure 166/90 H 145/94 H Pulse Oximetry 99 Oxygen Delivery Method Fraction of Inspired Oxygen 07/05/24 04:00 07/05/24 04:00 07/05/24 04:05 Temperature 97.5 F L 98.1 F Pulse Rate 105 H 105 H Respiratory Rate 19 20 Blood Pressure 145/76 H Pulse Oximetry 99 99 Oxygen Delivery Method Fraction of Inspired Oxygen 07/05/24 04:05 07/05/24 04:10 07/05/24 04:10 Temperature 98.2 F Pulse Rate 97 H Respiratory Rate 21 Blood Pressure 129/79 112/65 Pulse Oximetry 99 Oxygen Delivery Method Fraction of Inspired Oxygen 07/05/24 04:16 07/05/24 04:16 07/05/24 04:20 Temperature 98.6 F 98.6 F Pulse Rate 95 H 94 H Respiratory Rate 18 20 Blood Pressure 107/66 Pulse Oximetry 99 99 Oxygen Delivery Method Fraction of Inspired Oxygen 07/05/24 04:20 07/05/24 04:26 07/05/24 04:26 Temperature 98.6 F Pulse Rate 100 H Respiratory Rate 18 Blood Pressure 99/61 145/88 H Pulse Oximetry 99 Oxygen Delivery Method Fraction of Inspired Oxygen 07/05/24 04:30 07/05/24 04:31 07/05/24 04:35 Temperature 98.8 F 99.0 F 99.1 F Pulse Rate 105 H 109 H 107 H Respiratory Rate 18 27 H 18 Blood Pressure Pulse Oximetry 100 100 100 Oxygen Delivery Method Fraction of Inspired Oxygen 07/05/24 04:35 07/05/24 04:40 07/05/24 04:40 Temperature Pulse Rate 109 H Respiratory Rate 24 Blood Pressure 131/79 156/88 H Pulse Oximetry 100 Oxygen Delivery Method Fraction of Inspired Oxygen 07/05/24 04:45 07/05/24 04:45 07/05/24 04:50 Temperature Pulse Rate 122 H 129 H Respiratory Rate 18 18 Blood Pressure 198/121 H Pulse Oximetry 100 100 Oxygen Delivery Method Fraction of Inspired Oxygen 07/05/24 04:50 07/05/24 04:55 07/05/24 04:55 Temperature 99.0 F Pulse Rate 135 H Respiratory Rate 18 Blood Pressure 212/118 H 212/117 H Pulse Oximetry 100 Oxygen Delivery Method Fraction of Inspired Oxygen 07/05/24 05:00 07/05/24 05:00 Temperature 99.1 F Pulse Rate 138 H Respiratory Rate 18 Blood Pressure 199/108 H Pulse Oximetry 100 Oxygen Delivery Method Fraction of Inspired Oxygen MDM - Altered Mental Status Differential Diagnosis Differential diagnosis: Likely altered mental status, delirium and dementia Lab Data 07/05/24 03:00 07/05/24 03:00 Labs: Lab Results 07/05/24 07/05/24 07/05/24 Range/Units 02:50 03:00 03:40 WBC 18.6 H (4.5-11.0) X10^3/uL RBC 4.17 (4.0-5.2) X10^6/uL Hgb 13.9 (12.0-16.0) g/dL Hct 40.3 (36-46) % MCV 96.8 (80-100) fL MCH 33.4 (26-34) PG MCHC 34.5 (30-36) % RDW 14.0 (11.6-14.8) % Plt Count 349 (150-400) X10^3/uL Neut % (Auto) 88.7 H (50-75) % Lymph % (Auto) 8.6 L (25-40) % [place] % (Auto) 1.1 L (3-14) % Eos % (Auto) 0.7 L (2-4) % Baso % (Auto) 0.9 (0-2) % Neut # (Auto) 25122 H (6038-6440) /uL Lymph # (Auto) 1600 (5432-4652) /uL [place] # (Auto) 200 (0-900) /uL Eos # (Auto) 100 (0-450) /uL Baso # (Auto) 200 H (0-100) /uL ESR 57 H (0-20) MM/HR PT 11.6 (9.4-12.5) SECONDS INR 1.0 (0.9-1.3) ABG pH (7.35-7.45) ABG pCO2 (35-45) mmHg ABG pO2 (80-100) mmHg ABG HCO3 (23-27) mmol/L ABG Total CO2 (23-27) mmol/L ABG O2 Saturation (95-100) % ABG Base Excess (-2-3) mmol/L Respiration Rate O2 Delivery Device Mode of Support FiO2 % % PEEP or CPAP Sodium 140 (137-145) mmol/L Potassium 3.1 L (3.4-5.1) mmol/L Chloride 103 (98-107) mmol/L Carbon Dioxide 18 L (22-32) mmol/L BUN 18 H (7-17) mg/dL Creatinine 0.82 (0.52-1.04) mg/dL Estimated GFR > 60 (>60) mL/min BUN/Creatinine Ratio 22.0 (6-22) Glucose 304 H (80-110) mg/dL Lactate 5.3 H* (0.7-2.1) mmol/L Calcium 10.2 (8.4-10.2) mg/dL Magnesium 1.8 (1.6-2.3) mg/dL Total Bilirubin 0.9 (0.2-1.3) mg/dL AST 38 H (14-36) IU/L ALT 78 H (<35) IU/L Alkaline Phosphatase 101 (38-126) U/L Ammonia < 9 L (9-30) umol/L Total Creatine Kinase 69 (30-135) U/L Troponin I 0.053 H (0.01-0.034) ng/mL C-Reactive Protein < 0.5 (<1.0) mg/dL Total Protein 8.8 H (6.3-8.2) g/dL Albumin 5.0 (3.5-5.0) g/dL Globulin 3.8 (1.7-4.1) g/dL Albumin/Globulin Ratio 1.3 (1.0-2.8) Procalcitonin 0.052 (<0.5) ng/mL Urine Color Yellow Urine Appearance Slightly cloudy Urine pH 7.0 (4.5-8.0) Ur Specific [place] 1.020 (1.000-1.035) Urine Protein 3+ H (Negative) Urine Glucose (UA) 2+ H (Negative) g/dL Urine Ketones Negative (NEGATIVE) Urine Occult Blood 2+ H (Negative) Urine Nitrate Positive H (Negative) Urine Bilirubin Negative (NEGATIVE) Urine Urobilinogen 0.2 (0.2) E.U./dL Ur Leukocyte Esterase Negative (NEGATIVE) Urine RBC 1-5/hpf (0-5/HPF) Urine WBC 0-1/hpf (0-5/HPF) Ur Squamous Epith Cells 5-10 /hpf H (0-5/HPF) Urine Bacteria Many (>30) H (None) Hyaline Casts 5-10/lpf (None) Ur Culture Indicated? Specimen cultured Vol Urine Centrifuged 10ml (spun) CSF Tube Number CSF Volume CSF Appearance (Clear) CSF Color (Colorless) CSF WBC (0-5) MONO/uL CSF RBC RBC /uL CSF Mononuclear WBCs CSF Polynuclear WBCs CSF Glucose (40-70) mg/dL CSF Total Protein (12-60) mg/dL U Opiates 300ng/mL cut Negative (Negative) Ur Oxycodone Screen Negative (Negative) Urine Methadone Screen Negative (Negative) Ur Barbiturates Screen Negative (Negative) U Tricyclic Antidepress Negative (Negative) Ur Phencyclidine Scrn Negative (Negative) Ur Amphetamines Screen Negative (Negative) U Methamphetamines Scrn Negative (Negative) Ur MDMA Scrn (Ecstasy) Negative (Negative) U Benzodiazepines Scrn Negative (Negative) Urine Cocaine Screen Negative (Negative) U Marijuana (THC) Screen Positive H (Negative) Urine Specific [place] (Normal) Ur Creatinine (Normal) Chlamy pneumoniae PCR Not detected (Not Detect) Adenovirus (PCR) Not detected (Not Detect) B.parapertussis DNA PCR Not detected (Not Detecte) Coronavirus OC43 (PCR) Not detected (Not Detect) Coronavirus HKU1 (PCR) Not detected (Not Detect) Coronavirus 229E (PCR) Not detected (Not Detect) SARS-CoV-2 (PCR) Detected H (Not Detecte) Coronavirus NL63 (PCR) Not detected (Not Detect) Human Metapneumovir PCR Not detected (Not Detect) Influenza Type A (PCR) Not detected (Not Detect) Influenza Type B (PCR) Not detected (Not Detect) M. pneumoniae (PCR) Not detected (Not Detect) Parainfluenza 1 (PCR) Not detected (Not Detect) Parainfluenza 2 (PCR) Not detected (Not Detect) Parainfluenza 3 (PCR) Not detected (Not Detect) Parainfluenza 4 (PCR) Not detected (Not Detect) RSV (PCR) Not detected (Not Detect) Entero/Rhino (PCR) Not detected (Not Detect) Blood Type A Positive Antibody Screen Negative 07/05/24 07/05/24 07/05/24 Range/Units 03:40 03:44 04:30 WBC (4.5-11.0) X10^3/uL RBC (4.0-5.2) X10^6/uL Hgb (12.0-16.0) g/dL Hct (36-46) % MCV (80-100) fL MCH (26-34) PG MCHC (30-36) % RDW (11.6-14.8) % Plt Count (150-400) X10^3/uL Neut % (Auto) (50-75) % Lymph % (Auto) (25-40) % [place] % (Auto) (3-14) % Eos % (Auto) (2-4) % Baso % (Auto) (0-2) % Neut # (Auto) (6089-0631) /uL Lymph # (Auto) (8142-4687) /uL [place] # (Auto) (0-900) /uL Eos # (Auto) (0-450) /uL Baso # (Auto) (0-100) /uL ESR (0-20) MM/HR PT (9.4-12.5) SECONDS INR (0.9-1.3) ABG pH 7.40 (7.35-7.45) ABG pCO2 34.8 L (35-45) mmHg ABG pO2 182 H (80-100) mmHg ABG HCO3 21 L (23-27) mmol/L ABG Total CO2 21 L (23-27) mmol/L ABG O2 Saturation 100 (95-100) % ABG Base Excess -2.8 L (-2-3) mmol/L Respiration Rate 18 O2 Delivery Device Adult ventilator Mode of Support Assist cont ventilat FiO2 % 60.0 % % PEEP or CPAP 5 Sodium (137-145) mmol/L Potassium (3.4-5.1) mmol/L Chloride (98-107) mmol/L Carbon Dioxide (22-32) mmol/L BUN (7-17) mg/dL Creatinine (0.52-1.04) mg/dL Estimated GFR (>60) mL/min BUN/Creatinine Ratio (6-22) Glucose (80-110) mg/dL Lactate (0.7-2.1) mmol/L Calcium (8.4-10.2) mg/dL Magnesium (1.6-2.3) mg/dL Total Bilirubin (0.2-1.3) mg/dL AST (14-36) IU/L ALT (<35) IU/L Alkaline Phosphatase (38-126) U/L Ammonia (9-30) umol/L Total Creatine Kinase (30-135) U/L Troponin I (0.01-0.034) ng/mL C-Reactive Protein (<1.0) mg/dL Total Protein (6.3-8.2) g/dL Albumin (3.5-5.0) g/dL Globulin (1.7-4.1) g/dL Albumin/Globulin Ratio (1.0-2.8) Procalcitonin (<0.5) ng/mL Urine Color Urine Appearance Urine pH Normal (4.5-8.0) Ur Specific [place] (1.000-1.035) Urine Protein (Negative) Urine Glucose (UA) (Negative) g/dL Urine Ketones (NEGATIVE) Urine Occult Blood (Negative) Urine Nitrate (Negative) Urine Bilirubin (NEGATIVE) Urine Urobilinogen (0.2) E.U./dL Ur Leukocyte Esterase (NEGATIVE) Urine RBC (0-5/HPF) Urine WBC (0-5/HPF) Ur Squamous Epith Cells (0-5/HPF) Urine Bacteria (None) Hyaline Casts (None) Ur Culture Indicated? Vol Urine Centrifuged CSF Tube Number 3 CSF Volume 1.5 ml CSF Appearance Clear (Clear) CSF Color Colorless (Colorless) CSF WBC 0 (0-5) MONO/uL CSF RBC 1 RBC /uL CSF Mononuclear WBCs Not Reportable CSF Polynuclear WBCs Not Reportable CSF Glucose 102 H (40-70) mg/dL CSF Total Protein 131 H (12-60) mg/dL U Opiates 300ng/mL cut (Negative) Ur Oxycodone Screen (Negative) Urine Methadone Screen (Negative) Ur Barbiturates Screen (Negative) U Tricyclic Antidepress (Negative) Ur Phencyclidine Scrn (Negative) Ur Amphetamines Screen (Negative) U Methamphetamines Scrn (Negative) Ur MDMA Scrn (Ecstasy) (Negative) U Benzodiazepines Scrn (Negative) Urine Cocaine Screen (Negative) U Marijuana (THC) Screen (Negative) Urine Specific [place] Normal (Normal) Ur Creatinine Normal (Normal) Chlamy pneumoniae PCR (Not Detect) Adenovirus (PCR) (Not Detect) B.parapertussis DNA PCR (Not Detecte) Coronavirus OC43 (PCR) (Not Detect) Coronavirus HKU1 (PCR) (Not Detect) Coronavirus 229E (PCR) (Not Detect) SARS-CoV-2 (PCR) (Not Detecte) Coronavirus NL63 (PCR) (Not Detect) Human Metapneumovir PCR (Not Detect) Influenza Type A (PCR) (Not Detect) Influenza Type B (PCR) (Not Detect) M. pneumoniae (PCR) (Not Detect) Parainfluenza 1 (PCR) (Not Detect) Parainfluenza 2 (PCR) (Not Detect) Parainfluenza 3 (PCR) (Not Detect) Parainfluenza 4 (PCR) (Not Detect) RSV (PCR) (Not Detect) Entero/Rhino (PCR) (Not Detect) Blood Type Antibody Screen 07/05/24 Range/Units 05:00 WBC (4.5-11.0) X10^3/uL RBC (4.0-5.2) X10^6/uL Hgb (12.0-16.0) g/dL Hct (36-46) % MCV (80-100) fL MCH (26-34) PG MCHC (30-36) % RDW (11.6-14.8) % Plt Count (150-400) X10^3/uL Neut % (Auto) (50-75) % Lymph % (Auto) (25-40) % [place] % (Auto) (3-14) % Eos % (Auto) (2-4) % Baso % (Auto) (0-2) % Neut # (Auto) (7447-6493) /uL Lymph # (Auto) (8769-9495) /uL [place] # (Auto) (0-900) /uL Eos # (Auto) (0-450) /uL Baso # (Auto) (0-100) /uL ESR (0-20) MM/HR PT (9.4-12.5) SECONDS INR (0.9-1.3) ABG pH (7.35-7.45) ABG pCO2 (35-45) mmHg ABG pO2 (80-100) mmHg ABG HCO3 (23-27) mmol/L ABG Total CO2 (23-27) mmol/L ABG O2 Saturation (95-100) % ABG Base Excess (-2-3) mmol/L Respiration Rate O2 Delivery Device Mode of Support FiO2 % % PEEP or CPAP Sodium (137-145) mmol/L Potassium (3.4-5.1) mmol/L Chloride (98-107) mmol/L Carbon Dioxide (22-32) mmol/L BUN (7-17) mg/dL Creatinine (0.52-1.04) mg/dL Estimated GFR (>60) mL/min BUN/Creatinine Ratio (6-22) Glucose (80-110) mg/dL Lactate 4.0 H (0.7-2.1) mmol/L Calcium (8.4-10.2) mg/dL Magnesium (1.6-2.3) mg/dL Total Bilirubin (0.2-1.3) mg/dL AST (14-36) IU/L ALT (<35) IU/L Alkaline Phosphatase (38-126) U/L Ammonia (9-30) umol/L Total Creatine Kinase (30-135) U/L Troponin I (0.01-0.034) ng/mL C-Reactive Protein (<1.0) mg/dL Total Protein (6.3-8.2) g/dL Albumin (3.5-5.0) g/dL Globulin (1.7-4.1) g/dL Albumin/Globulin Ratio (1.0-2.8) Procalcitonin (<0.5) ng/mL Urine Color Urine Appearance Urine pH (4.5-8.0) Ur Specific [place] (1.000-1.035) Urine Protein (Negative) Urine Glucose (UA) (Negative) g/dL Urine Ketones (NEGATIVE) Urine Occult Blood (Negative) Urine Nitrate (Negative) Urine Bilirubin (NEGATIVE) Urine Urobilinogen (0.2) E.U./dL Ur Leukocyte Esterase (NEGATIVE) Urine RBC (0-5/HPF) Urine WBC (0-5/HPF) Ur Squamous Epith Cells (0-5/HPF) Urine Bacteria (None) Hyaline Casts (None) Ur Culture Indicated? Vol Urine Centrifuged CSF Tube Number CSF Volume CSF Appearance (Clear) CSF Color (Colorless) CSF WBC (0-5) MONO/uL CSF RBC RBC /uL CSF Mononuclear WBCs CSF Polynuclear WBCs CSF Glucose (40-70) mg/dL CSF Total Protein (12-60) mg/dL U Opiates 300ng/mL cut (Negative) Ur Oxycodone Screen (Negative) Urine Methadone Screen (Negative) Ur Barbiturates Screen (Negative) U Tricyclic Antidepress (Negative) Ur Phencyclidine Scrn (Negative) Ur Amphetamines Screen (Negative) U Methamphetamines Scrn (Negative) Ur MDMA Scrn (Ecstasy) (Negative) U Benzodiazepines Scrn (Negative) Urine Cocaine Screen (Negative) U Marijuana (THC) Screen (Negative) Urine Specific [place] (Normal) Ur Creatinine (Normal) Chlamy pneumoniae PCR (Not Detect) Adenovirus (PCR) (Not Detect) B.parapertussis DNA PCR (Not Detecte) Coronavirus OC43 (PCR) (Not Detect) Coronavirus HKU1 (PCR) (Not Detect) Coronavirus 229E (PCR) (Not Detect) SARS-CoV-2 (PCR) (Not Detecte) Coronavirus NL63 (PCR) (Not Detect) Human Metapneumovir PCR (Not Detect) Influenza Type A (PCR) (Not Detect) Influenza Type B (PCR) (Not Detect) M. pneumoniae (PCR) (Not Detect) Parainfluenza 1 (PCR) (Not Detect) Parainfluenza 2 (PCR) (Not Detect) Parainfluenza 3 (PCR) (Not Detect) Parainfluenza 4 (PCR) (Not Detect) RSV (PCR) (Not Detect) Entero/Rhino (PCR) (Not Detect) Blood Type Antibody Screen Imaging Data CT scan - head: Radiologist's Impression: Preliminary impression -no bleed, no acute findings CT scan - chest: Radiologist's Impression: Preliminary review -possible small bilateral basilar infiltrate, no large PE Chest x-ray: Radiologist's Impression: Preliminary review -CVC in good position, no PTX ECG Data Interpretation: SVT at 180 beats per minute [facility] Narrative Medical decision making narrative: Patient arrives intubated, sedated, apparently abrupt change in mental status this evening per . Noted to be tachycardic and extremely hypertensive EN route. Concern for PE versus subarachnoid hemorrhage versus encephalopathy. Labs, imaging ordered stat. Propofol ordered for sedation. Preliminary review of CT brain and CT angio chest showed no abnormalities to suggest why patient had sudden change in status evening. Attempted to place central line in left IJ, however attempt aborted due to extreme back pressures from venous access. IV metoprolol ordered for blood pressure and heart rate control. Has been it was now in the emergency department, he states that patient seemed to be recovering from the COVID infection over the last several days, but yesterday began to feel more poorly and has spent most of the day in bed. He states that as the day progressed she seemed to become more agitated, taking off her clothes and sleeping in a different bedroom than usual, however he attributed it to her being hot. He did verbally consent to lumbar puncture if needed. Lumbar puncture successful, clear appearing CSF collected and sent to laboratory work. Right CVC placed with good positioning on chest x-ray. Patient admitted for further treatment to hospitalist service. They requested that I reach out to the avionics systems engineer team. Report given to Dr. Gifford avionics systems engineer, who accepted patient. Critical Care Time Critical Care Time Critical Care Time: Yes Total Critical Care Time: 62 Attestation: Metabolic encephalopathy requiring urgent stabilization, airway management, blood pressure support, frequent reassessments, goals of care discussion with . Discharge Plan Departure Patient Disposition: Admitted As Inpatient Clinical Impression: Acute metabolic encephalopathy, COVID-19, Acute UTI Admit Date/Time: 07/05/24 05:56
--- NOTE | 2024-07-05 03:04 | PC.NURSE ---
see triage note for details. upon arrival placement of ET tube checked per Dr Nash and confirmed @ 0245, pt placed on ventilator per RT. pt to CT @ 0305
[2024-07-05 03:15] LABS: Add Manual Diff / Slide Review NO; Basophils Absolute Auto 200 /uL (0-100); Basophils Percent Auto 0.9 % (0-2); Eosinophils Absolute Auto 100 /uL (0-450); Eosinophils Percent Auto 0.7 % (2-4); Hematocrit 40.3 % (36-46); Hemoglobin 13.9 g/dL (12.0-16.0); Lymphocytes Absolute Auto 1600 /uL (1100-4500); Lymphocytes Percent Auto 8.6 % (25-40); Mean Corpuscular HGB Conc 34.5 % (30-36); Mean Corpuscular Hemoglobin 33.4 PG (26-34); Mean Corpuscular Volume 96.8 fL (80-100); Monocytes Absolute Auto 200 /uL (0-900); Monocytes Percent Auto 1.1 % (3-14); Neutrophils Absolute Auto 16500 /uL (1500-7000); Neutrophils Percent Auto 88.7 % (50-75); Platelet Count 349 X10^3/uL (150-400); Red Blood Cell Count 4.17 X10^6/uL (4.0-5.2); White Blood Cell Count 18.6 X10^3/uL (4.5-11.0)
[2024-07-05 03:24] LABS: Ammonia (NH3) < 9 umol/L (9-30)
[2024-07-05 03:28] LABS: Alanine Aminotransferase 78 IU/L (<35); Albumin Globulin Ratio 1.3 (1.0-2.8); Alkaline Phosphatase 101 U/L (38-126); Aspartate Aminotransferase 38 IU/L (14-36); Bilirubin Total 0.9 mg/dL (0.2-1.3); Blood Urea Nitrogen 18 mg/dL (7-17); C-Reactive Protein Quant < 0.5 mg/dL (<1.0); Calcium 10.2 mg/dL (8.4-10.2); Carbon Dioxide 18 mmol/L (22-32); Chloride 103 mmol/L (98-107); Creatine Kinase 69 U/L (30-135); Estimated Glomerular Filt Rate > 60 mL/min (>60); Globulin 3.8 g/dL (1.7-4.1); Glucose 304 mg/dL (80-110); HEMOLYSIS < 15 (0-50); Magnesium 1.8 mg/dL (1.6-2.3); Potassium 3.1 mmol/L (3.4-5.1); Prothrombin Time 11.6 SECONDS (9.4-12.5); Sodium 140 mmol/L (137-145); Total Protein 8.8 g/dL (6.3-8.2)
[2024-07-05] MEDS: METOPROLOL TARTRATE 5 MG/5 ML INJ IV ×3 (03:28→03:42)
[2024-07-05 03:34] LABS: Lactate (Lactic Acid) 5.3 mmol/L (0.7-2.1)
[2024-07-05 03:35] LABS: Erythrocyte Sedimentation Rate 57 MM/HR (0-20)
[2024-07-05 03:37] LABS: Troponin I 0.053 ng/mL (0.01-0.034)
[2024-07-05 03:42] LABS: Procalcitonin 0.052 ng/mL (<0.5)
[2024-07-05 03:48] LABS: Bilirubin Urine UA NEGATIVE (NEGATIVE); Color Urine UA YELLOW; Glucose Urine UA 2+ g/dL (Negative); Ketones Urine UA NEGATIVE (NEGATIVE); Leukocyte Esterase Urine UA NEGATIVE (NEGATIVE); Nitrite Urine UA POSITIVE (Negative); Occult Blood Urine UA 2+ (Negative); Protein Urine UA 3+ (Negative); Urobilinogen Urine UA 0.2 E.U./dL (0.2)
[2024-07-05 03:48] LABS: Base Excess ABG -2.8 mmol/L (-2-3); Blood Gas Mode Assist Cont Ventilat; Delivery System Adult Ventilator; HCO3 ABG 21 mmol/L (23-27); Oxygen Saturation ABG 100 % (95-100); PCO2 ABG 34.8 mmHg (35-45); PEEP 5; PO2 ABG 182 mmHg (80-100); Respiratory Rate 18; TCO2 ABG 21 mmol/L (23-27)
[2024-07-05 03:51] LABS: Appearance Urine UA Slightly Cloudy; Urine Volume 10mL (spun)
[2024-07-05 03:52] LABS: UR Morphine/Opiate cutoff 300 Negative (Negative); Ur Creatinine Normal (Normal); Ur Specific Gravity Normal (Normal); Urine Amphetamines Negative (Negative); Urine Barbiturates Negative (Negative); Urine Benzodiazepines Negative (Negative); Urine Cocaine Negative (Negative); Urine MDMA Negative (Negative); Urine Methadone Negative (Negative); Urine Methamphetamines Negative (Negative); Urine Oxycodone Negative (Negative); Urine Phencyclidine Negative (Negative); Urine Tetrahydrocannabinol Positive (Negative); Urine Tricyclic Antidepressant Negative (Negative); Urine pH Normal (Normal)
[2024-07-05 03:53] LABS: Bacteria Urine Many (>30); WBC Urine 0-1/HPF (0-5/HPF)
[2024-07-05 03:54] LABS: Culture Indicated Urine Specimen Cultured; Hyaline Casts Urine 5-10/LPF; RBC Urine 1-5/HPF (0-5/HPF); Squamous Epithelial Cell Urine 5-10 /HPF (0-5/HPF)
[2024-07-05 04:00] LABS: Adenovirus Not Detected (Not Detect); B. parapertussis Not Detected (Not Detecte); Bordetella pertussis Not Detected (Not Detect); Chlamydophila pneumoniae Not Detected (Not Detect); Coronavirus 229E Not Detected (Not Detect); Coronavirus HKU1 Not Detected (Not Detect); Coronavirus NL 63 Not Detected (Not Detect); Coronavirus OC43 Not Detected (Not Detect); Human Metapneumovirus Not Detected (Not Detect); Human Rhinovirus/Enterovirus Not Detected (Not Detect); Influenza A Not Detected (Not Detect); Influenza B Not Detected (Not Detect); Mycoplasma pneumoniae Not Detected (Not Detect); Parainfluenza Virus 1 Not Detected (Not Detect); Parainfluenza Virus 2 Not Detected (Not Detect); Parainfluenza Virus 3 Not Detected (Not Detect); Parainfluenza Virus 4 Not Detected (Not Detect); Respiratory Syncytial Virus Not Detected (Not Detect)
[2024-07-05 04:02] LABS: SARS- CoV-2 Detected (Not Detecte)
[2024-07-05] MEDS: cefTRIAXone 2,000 MG in SODIUM CHLORIDE 0.9% 100 ML 200 MG IV ×2 (04:06→18:52)
[2024-07-05] MEDS: fentaNYL 1,000 MCG in DEXTROSE 5% IN WATER 230 ML 14.718 MCG IV (04:19)
[2024-07-05] MEDS: ROCURONIUM 50 MG/5 ML INJ IV (04:20)
--- NOTE | 2024-07-05 04:27 | PC.NURSE ---
lumbar puncture in progress per Dr Nash
--- NOTE | 2024-07-05 04:31 | PC.NURSE ---
LP completed specimens obtained and sent to lab pt tolerated procedure well
[2024-07-05 04:45] LABS: Reflexed Lactate in 2 Hours Y
--- NOTE | 2024-07-05 04:45 | DI.RAD.S_ITS ---
PROCEDURE: XR CHEST 1V INDICATIONS: post central line insertion TECHNIQUE: One view of the chest was acquired. COMPARISON: None. FINDINGS: Surgical changes and devices: ETT tip is 4.5 cm above the daisy. NG tube tip is below the left hemidiaphragm. Right internal jugular central venous catheter tip is in SVC. Lungs and pleura: Lungs are clear. No pleural effusions or pneumothorax. Mediastinum: Mediastinal contours appear normal. Heart size is normal. Bones and chest wall: No suspicious bony lesions. Overlying soft tissues appear unremarkable. IMPRESSION: Right internal jugular central venous catheter tip is in SVC. ETT and NG tube are in satisfactory position. No focal infiltrate, pleural effusion or pneumothorax. No significant discrepancies from preliminary reading. Dictated by: Thom Rico M.D. on 07/05/2024 at 8:17 Approved by: Thom Rico M.D. on 07/05/2024 at 8:18
[2024-07-05 05:04] LABS: Appearance CSF Clear (Clear); CSF Tube Number 3; CSF Tube Volume 1.5 mL; Color CSF Colorless (Colorless); Red Blood Cell CSF 1 RBC /uL; White Blood Cell CSF 0 MONO/uL (0-5)
[2024-07-05 05:34] LABS: Glucose CSF 102 mg/dL (40-70); Total Protein CSF 131 mg/dL (12-60)
[2024-07-05 05:44] LABS: HOLD TUBE CSF 4
[2024-07-05] MEDS: AZITHROMYCIN 500 MG in DEXTROSE 5% IN WATER 250 ML 250 MG IV (06:06)
[2024-07-05] MEDS: ACETAMINOPHEN IV 1,000 MG/100 ML VIAL 400 MG IV (06:20)
--- NOTE | 2024-07-05 06:21 | PM.HP.1 ---
History of Present Illness History of Present Illness Date Patient Seen: 07/05/24 Time Patient Seen: 05:50 Chief complaint: Intubated Narrative: 69-year-old female normally sees Dr. Nick Swift at [facility], admitted via emergency department with altered mental status intubated etcetera Patient apparently diagnose with COVID-19 5 days ago or so. From spouse (from whom the history comes), patient went to bed completely normal however in the middle of the night woke up thrashing an acting very strangely in so 911 was summoned. When EMS arrived patient was tachycardic with heart rate in the 180s and saturating in the 80s (on room air). EMS apparently felt she was in SVT and shocked her x2 with no change in rate. Patient was, per EMS, extremely erratic unable to follow simple commands and so she was intubated for airway protection in the field. She was treated with the rocuronium ketamine and Versed in the field for intubation purposes The ER evaluation remarkable for leukocytosis at 18,000, with significant left shift. Positive lactate at 5.3, modest hypokalemia at 3.1. Elevation of transaminases (not seen previously). Coags normal, initial blood gas quite good with PO2 of 182 on 60% FiO2. Toxicology positive only for marijuana. Lumbar puncture was also performed, which had no white cells single red blood cell and probably normal overall. Evaluation of CSF with PCR was negative for detectable infection. Head CT, CT angiography of the chest and chest x-ray unremarkable per ER physician (final local interpretation still pending, this was per [facility]) She was intermittently tachycardic and hypertensive and more normotensive with normal heart rate at times Urinalysis also suggest infection with bacteria urine nitrites but negative leukocyte esterase and only limited red blood cells etcetera. Patient was given a dose of azithromycin and ceftriaxone in the ER and admitted for further management [facility] Medical History (Updated 07/05/24 @ 09:23 by Lety Gifford MD) Former smoker GERD without esophagitis Mixed hyperlipidemia Essential hypertension PTSD (post-traumatic stress disorder) Generalized anxiety disorder Depression Chronic pain syndrome Degenerative disc disease Spinal stenosis Surgical History (Updated 07/05/24 @ 07:12 by Jose Longoria MD) Status post hip hemiarthroplasty (~01/2024) Status post cholecystectomy Status post cervical spinal fusion Family History Mother Hypertension Cancer Father Stroke Social History marital status: household members: spouse occupational status: employed Smoking Status: Former smoker alcohol intake: never substance use type: does not use Meds Home Medications and Allergies Home Medications Medication Instructions Recorded Confirmed Type CHOLECALCIFEROL (VITAMIN D3) 5,000 iu PO Q DAY ##0 08/25/10 02/11/24 History (Vitamin D3) VITAMIN C - 1,000 mg PO Q DAY ##0 08/25/10 02/11/24 History (VITAMIN C) Vitamin E (Alpha-Tocopherol) 800 unit PO Q DAY ##0 08/25/10 02/11/24 History COENZYME Q10/VITAMIN E (CO-Q-10 200 mg PO QDAY ##0 03/13/13 02/11/24 History 200mg) [FISH OIL] 1,000 mg PO DAILY ##0 03/13/13 02/11/24 History [GLUCOSAMINE] 1,500 mg PO Q DAY ##0 03/13/13 02/11/24 History buprenorphine 8 mg-naloxone 2 mg 8 film sublingual TID ##0 03/13/13 02/11/24 History sublingual film (Suboxone) gabapentin 600 mg tablet 600 mg PO TID ##0 03/13/13 02/11/24 History (Neurontin) nadolol 20 mg tablet (Corgard) 40 mg PO QDAY ##0 03/13/13 02/11/24 History Miralax 1 tbsp PO DAILY 02/11/24 02/11/24 History vitamin B complex 1 tab PO DAILY 02/11/24 02/11/24 History sulfamethoxazole 800 1 tab PO BID #14 tabs 02/13/24 Rx mg-trimethoprim 160 mg tablet Allergies Allergy/AdvReac Type Severity Reaction Status Date / Time codeine [CODEINE] AdvReac Severe HEAD ABOUT Verified 02/11/24 19:44 TO EXPLODE & BAD NAUSEA & VOMTING. fluoxetine [FLUOXETINE] AdvReac Severe PARANOID. Verified 02/11/24 19:44 Review of Systems Review of Systems ROS: Yes unobtainable due to endotracheal tube Exam Vital Signs (past 8 hours): - 07/05/24 02:41 07/05/24 03:20 07/05/24 03:20 Temperature 98.9 F Pulse Rate 153 H 168 H Respiratory Rate 10 L 21 Blood Pressure 233/139 H 257/132 H Pulse Oximetry 100 100 Oxygen Delivery Method Ambu Bag Fraction of Inspired Oxygen 07/05/24 03:24 07/05/24 03:25 07/05/24 03:25 Temperature Pulse Rate 170 H Respiratory Rate 22 Blood Pressure 224/140 H Pulse Oximetry 100 Oxygen Delivery Method Fraction of Inspired Oxygen 60 07/05/24 03:28 07/05/24 03:28 07/05/24 03:30 Temperature Pulse Rate 171 H Respiratory Rate 23 Blood Pressure 167/99 H 190/125 H Pulse Oximetry 100 Oxygen Delivery Method Fraction of Inspired Oxygen 07/05/24 03:30 07/05/24 03:35 07/05/24 03:35 Temperature Pulse Rate 170 H 132 H Respiratory Rate 23 25 H Blood Pressure 182/106 H Pulse Oximetry 100 100 Oxygen Delivery Method Fraction of Inspired Oxygen 07/05/24 03:46 07/05/24 03:46 07/05/24 03:50 Temperature 96.3 F L 97.0 F L Pulse Rate 113 H 113 H Respiratory Rate 20 22 Blood Pressure 191/96 H Pulse Oximetry 100 99 Oxygen Delivery Method Fraction of Inspired Oxygen 07/05/24 03:50 07/05/24 03:55 07/05/24 03:55 Temperature 97.3 F L Pulse Rate 106 H Respiratory Rate 21 Blood Pressure 166/90 H 145/94 H Pulse Oximetry 99 Oxygen Delivery Method Fraction of Inspired Oxygen 07/05/24 04:00 07/05/24 04:00 07/05/24 04:05 Temperature 97.5 F L 98.1 F Pulse Rate 105 H 105 H Respiratory Rate 19 20 Blood Pressure 145/76 H Pulse Oximetry 99 99 Oxygen Delivery Method Fraction of Inspired Oxygen 07/05/24 04:05 07/05/24 04:10 07/05/24 04:10 Temperature 98.2 F Pulse Rate 97 H Respiratory Rate 21 Blood Pressure 129/79 112/65 Pulse Oximetry 99 Oxygen Delivery Method Fraction of Inspired Oxygen 07/05/24 04:16 07/05/24 04:16 07/05/24 04:20 Temperature 98.6 F 98.6 F Pulse Rate 95 H 94 H Respiratory Rate 18 20 Blood Pressure 107/66 Pulse Oximetry 99 99 Oxygen Delivery Method Fraction of Inspired Oxygen 07/05/24 04:20 07/05/24 04:26 07/05/24 04:26 Temperature 98.6 F Pulse Rate 100 H Respiratory Rate 18 Blood Pressure 99/61 145/88 H Pulse Oximetry 99 Oxygen Delivery Method Fraction of Inspired Oxygen 07/05/24 04:30 07/05/24 04:31 07/05/24 04:35 Temperature 98.8 F 99.0 F 99.1 F Pulse Rate 105 H 109 H 107 H Respiratory Rate 18 27 H 18 Blood Pressure Pulse Oximetry 100 100 100 Oxygen Delivery Method Fraction of Inspired Oxygen 07/05/24 04:35 07/05/24 04:40 07/05/24 04:40 Temperature Pulse Rate 109 H Respiratory Rate 24 Blood Pressure 131/79 156/88 H Pulse Oximetry 100 Oxygen Delivery Method Fraction of Inspired Oxygen 07/05/24 04:45 07/05/24 04:45 07/05/24 04:50 Temperature Pulse Rate 122 H 129 H Respiratory Rate 18 18 Blood Pressure 198/121 H Pulse Oximetry 100 100 Oxygen Delivery Method Fraction of Inspired Oxygen 07/05/24 04:50 07/05/24 04:55 07/05/24 04:55 Temperature 99.0 F Pulse Rate 135 H Respiratory Rate 18 Blood Pressure 212/118 H 212/117 H Pulse Oximetry 100 Oxygen Delivery Method Fraction of Inspired Oxygen 07/05/24 05:00 07/05/24 05:00 07/05/24 05:30 Temperature 99.1 F 99.5 F Pulse Rate 138 H 98 H Respiratory Rate 18 19 Blood Pressure 199/108 H Pulse Oximetry 100 99 Oxygen Delivery Method Fraction of Inspired Oxygen 07/05/24 05:31 07/05/24 05:31 07/05/24 05:44 Temperature 99.5 F 99.7 F H Pulse Rate 106 H 101 H Respiratory Rate 18 18 Blood Pressure 93/57 L Pulse Oximetry 98 100 Oxygen Delivery Method Fraction of Inspired Oxygen 07/05/24 05:44 07/05/24 05:45 07/05/24 05:45 Temperature 99.7 F H Pulse Rate 101 H Respiratory Rate 18 Blood Pressure 91/60 91/66 Pulse Oximetry 100 Oxygen Delivery Method Fraction of Inspired Oxygen 07/05/24 06:00 08/07/24 06:00 Temperature 99.9 F H Pulse Rate 86 Respiratory Rate 18 Blood Pressure 107/63 Pulse Oximetry 98 Oxygen Delivery Method Fraction of Inspired Oxygen Fraction of Inspired Oxygen 60 Oxygen Delivery Method Ambu Bag Narrative Exam Narrative: Intubated sedated female HEENT-unremarkable Lungs-clear breath sounds with ventilator, no wheezes or crackles Heart-tachycardic no murmur rub or gallop Abdomen-benign Objective ECG Impression: 12 lead ECG shows SVT versus sinus tachycardia heart rate 170s Imaging Chest x-ray: My impression: Endotracheal tube appropriately positioned above the daisy, no obvious infiltrate or pneumothorax CT scan - chest: My impression: No obvious infiltrate in lung pollard, further evaluation per Radiology Labs 07/05/24 06:39 07/05/24 06:39 Labs: Laboratory Results - last 24 hr 07/05/24 07/05/24 07/05/24 02:50 03:00 03:40 WBC 18.6 H RBC 4.17 Hgb 13.9 Hct 40.3 MCV 96.8 MCH 33.4 MCHC 34.5 RDW 14.0 Plt Count 349 Neut % (Auto) 88.7 H Lymph % (Auto) 8.6 L [place] % (Auto) 1.1 L Eos % (Auto) 0.7 L Baso % (Auto) 0.9 Neut # (Auto) 29463 H Lymph # (Auto) 1600 [place] # (Auto) 200 Eos # (Auto) 100 Baso # (Auto) 200 H ESR 57 H PT 11.6 INR 1.0 ABG pH ABG pCO2 ABG pO2 ABG HCO3 ABG Total CO2 ABG O2 Saturation ABG Base Excess Respiration Rate O2 Delivery Device Mode of Support FiO2 % PEEP or CPAP Sodium 140 Potassium 3.1 L Chloride 103 Carbon Dioxide 18 L BUN 18 H Creatinine 0.82 Estimated GFR > 60 BUN/Creatinine Ratio 22.0 Glucose 304 H Lactate 5.3 H* Calcium 10.2 Magnesium 1.8 Total Bilirubin 0.9 AST 38 H ALT 78 H Alkaline Phosphatase 101 Ammonia < 9 L Total Creatine Kinase 69 Troponin I 0.053 H C-Reactive Protein < 0.5 Total Protein 8.8 H Albumin 5.0 Globulin 3.8 Albumin/Globulin Ratio 1.3 Procalcitonin 0.052 Urine Color Yellow Urine Appearance Slightly cloudy Urine pH 7.0 Ur Specific [place] 1.020 Urine Protein 3+ H Urine Glucose (UA) 2+ H Urine Ketones Negative Urine Occult Blood 2+ H Urine Nitrate Positive H Urine Bilirubin Negative Urine Urobilinogen 0.2 Ur Leukocyte Esterase Negative Urine RBC 1-5/hpf Urine WBC 0-1/hpf Ur Squamous Epith Cells 5-10 /hpf H Urine Bacteria Many (>30) H Hyaline Casts 5-10/lpf Ur Culture Indicated? Specimen cultured Vol Urine Centrifuged 10ml (spun) CSF Tube Number CSF Volume CSF Appearance CSF Color CSF WBC CSF RBC CSF Mononuclear WBCs CSF Polynuclear WBCs CSF Glucose CSF Total Protein U Opiates 300ng/mL cut Negative Ur Oxycodone Screen Negative Urine Methadone Screen Negative Ur Barbiturates Screen Negative U Tricyclic Antidepress Negative Ur Phencyclidine Scrn Negative Ur Amphetamines Screen Negative U Methamphetamines Scrn Negative Ur MDMA Scrn (Ecstasy) Negative U Benzodiazepines Scrn Negative Urine Cocaine Screen Negative U Marijuana (THC) Screen Positive H Urine Specific [place] Ur Creatinine Chlamy pneumoniae PCR Not detected Adenovirus (PCR) Not detected B.parapertussis DNA PCR Not detected Coronavirus OC43 (PCR) Not detected Coronavirus HKU1 (PCR) Not detected Coronavirus 229E (PCR) Not detected SARS-CoV-2 (PCR) Detected H Coronavirus NL63 (PCR) Not detected Human Metapneumovir PCR Not detected Influenza Type A (PCR) Not detected Influenza Type B (PCR) Not detected M. pneumoniae (PCR) Not detected Parainfluenza 1 (PCR) Not detected Parainfluenza 2 (PCR) Not detected Parainfluenza 3 (PCR) Not detected Parainfluenza 4 (PCR) Not detected RSV (PCR) Not detected Entero/Rhino (PCR) Not detected Blood Type A Positive Antibody Screen Negative 07/05/24 07/05/24 07/05/24 03:40 03:44 04:30 WBC RBC Hgb Hct MCV MCH MCHC RDW Plt Count Neut % (Auto) Lymph % (Auto) [place] % (Auto) Eos % (Auto) Baso % (Auto) Neut # (Auto) Lymph # (Auto) [place] # (Auto) Eos # (Auto) Baso # (Auto) ESR PT INR ABG pH 7.40 ABG pCO2 34.8 L ABG pO2 182 H ABG HCO3 21 L ABG Total CO2 21 L ABG O2 Saturation 100 ABG Base Excess -2.8 L Respiration Rate 18 O2 Delivery Device Adult ventilator Mode of Support Assist cont ventilat FiO2 % 60.0 % PEEP or CPAP 5 Sodium Potassium Chloride Carbon Dioxide BUN Creatinine Estimated GFR BUN/Creatinine Ratio Glucose Lactate Calcium Magnesium Total Bilirubin AST ALT Alkaline Phosphatase Ammonia Total Creatine Kinase Troponin I C-Reactive Protein Total Protein Albumin Globulin Albumin/Globulin Ratio Procalcitonin Urine Color Urine Appearance Urine pH Normal Ur Specific [place] Urine Protein Urine Glucose (UA) Urine Ketones Urine Occult Blood Urine Nitrate Urine Bilirubin Urine Urobilinogen Ur Leukocyte Esterase Urine RBC Urine WBC Ur Squamous Epith Cells Urine Bacteria Hyaline Casts Ur Culture Indicated? Vol Urine Centrifuged CSF Tube Number 3 CSF Volume 1.5 ml CSF Appearance Clear CSF Color Colorless CSF WBC 0 CSF RBC 1 CSF Mononuclear WBCs Not Reportable CSF Polynuclear WBCs Not Reportable CSF Glucose 102 H CSF Total Protein 131 H U Opiates 300ng/mL cut Ur Oxycodone Screen Urine Methadone Screen Ur Barbiturates Screen U Tricyclic Antidepress Ur Phencyclidine Scrn Ur Amphetamines Screen U Methamphetamines Scrn Ur MDMA Scrn (Ecstasy) U Benzodiazepines Scrn Urine Cocaine Screen U Marijuana (THC) Screen Urine Specific [place] Normal Ur Creatinine Normal Chlamy pneumoniae PCR Adenovirus (PCR) B.parapertussis DNA PCR Coronavirus OC43 (PCR) Coronavirus HKU1 (PCR) Coronavirus 229E (PCR) SARS-CoV-2 (PCR) Coronavirus NL63 (PCR) Human Metapneumovir PCR Influenza Type A (PCR) Influenza Type B (PCR) M. pneumoniae (PCR) Parainfluenza 1 (PCR) Parainfluenza 2 (PCR) Parainfluenza 3 (PCR) Parainfluenza 4 (PCR) RSV (PCR) Entero/Rhino (PCR) Blood Type Antibody Screen 07/05/24 05:00 WBC RBC Hgb Hct MCV MCH MCHC RDW Plt Count Neut % (Auto) Lymph % (Auto) [place] % (Auto) Eos % (Auto) Baso % (Auto) Neut # (Auto) Lymph # (Auto) [place] # (Auto) Eos # (Auto) Baso # (Auto) ESR PT INR ABG pH ABG pCO2 ABG pO2 ABG HCO3 ABG Total CO2 ABG O2 Saturation ABG Base Excess Respiration Rate O2 Delivery Device Mode of Support FiO2 % PEEP or CPAP Sodium Potassium Chloride Carbon Dioxide BUN Creatinine Estimated GFR BUN/Creatinine Ratio Glucose Lactate 4.0 H Calcium Magnesium Total Bilirubin AST ALT Alkaline Phosphatase Ammonia Total Creatine Kinase Troponin I C-Reactive Protein Total Protein Albumin Globulin Albumin/Globulin Ratio Procalcitonin Urine Color Urine Appearance Urine pH Ur Specific [place] Urine Protein Urine Glucose (UA) Urine Ketones Urine Occult Blood Urine Nitrate Urine Bilirubin Urine Urobilinogen Ur Leukocyte Esterase Urine RBC Urine WBC Ur Squamous Epith Cells Urine Bacteria Hyaline Casts Ur Culture Indicated? Vol Urine Centrifuged CSF Tube Number CSF Volume CSF Appearance CSF Color CSF WBC CSF RBC CSF Mononuclear WBCs CSF Polynuclear WBCs CSF Glucose CSF Total Protein U Opiates 300ng/mL cut Ur Oxycodone Screen Urine Methadone Screen Ur Barbiturates Screen U Tricyclic Antidepress Ur Phencyclidine Scrn Ur Amphetamines Screen U Methamphetamines Scrn Ur MDMA Scrn (Ecstasy) U Benzodiazepines Scrn Urine Cocaine Screen U Marijuana (THC) Screen Urine Specific [place] Ur Creatinine Chlamy pneumoniae PCR Adenovirus (PCR) B.parapertussis DNA PCR Coronavirus OC43 (PCR) Coronavirus HKU1 (PCR) Coronavirus 229E (PCR) SARS-CoV-2 (PCR) Coronavirus NL63 (PCR) Human Metapneumovir PCR Influenza Type A (PCR) Influenza Type B (PCR) M. pneumoniae (PCR) Parainfluenza 1 (PCR) Parainfluenza 2 (PCR) Parainfluenza 3 (PCR) Parainfluenza 4 (PCR) RSV (PCR) Entero/Rhino (PCR) Blood Type Antibody Screen Assessment & Plan Assessment & Plan narrative: 1. Respiratory-patient intubated in field for airway protection. He was not appear to have significant primary pulmonary disease. Continue ventilator until mental status better defined. Further management of ventilator and meds around sedation etcetera as per tele middle school librarian. Sedation started in ER and continued for now. IV proton pump inhibitor ordered. Follow-up ABG and chest x-rays ordered as well. 2. Altered mental status-no clear etiology for this at this point. Patient with a couple of high-risk medications including Suboxone, wonder about medication mismanagement as a potential source of issues. Patient also with the SVT/tachycardia normally on beta-peter also makes me wonder about medication mismanagement as skipping doses could contribute to this as well. Tox screen negative except for marijuana which does not explain her mental status changes kind my opinion. Patient does show evidence of infection with positive lactate and leukocytosis a source of infection at this point unclear. Continue with conservative management for now. 3. Cardiac-patient with intermittent hypotension and hypertension as well as SVT and normal sinus rhythm. Patient with a history of chronic beta-peter use for blood pressure control presumably. If she was skipped doses that might explain her tachycardia and hypertension anyway. For now I think treating with parental metoprolol makes the most sense. Echocardiography should be performed as well, will order that. Troponin indeterminate at best. Suggest repeating this later today as well. 4. Behavioral health-patient with the diagnosis of depression and generalized anxiety disorder as well as PTSD. Patient does not appear to be on any medications for these indications. Urine tox screen negative for some toxic ingestion that may have caused her mental status changes. Further follow-up as per usual primary care physician 5. Chronic pain-patient chronically on Suboxone for chronic pain likely related to her neck issues. Patient tolerated postoperative pain after hip repair in January of this year without a lot of difficulty. May complicate her evaluation in sedation as above 6. [id number]'s presentation and evaluation does not suggest serious pneumonia from her COVID-19 infection. Do not believe she would benefit from antivirals at this point. She seems to be easy to ventilate with minimal if any hypoxia at this time. She would benefit from full-dose anticoagulation with Lovenox at about mg per kilos q.12 hours, given the positive COVID-19 status. Corticosteroids as per tele-middle school librarian, if considered appropriate. 7. VTE prophylaxis-as above patient is on Lovenox 8. Code status-full code obviously patient has already been intubated and would want to be resuscitated in the event of a cardiac arrest 9. Nutrition-for now IV dextrose I suspect patient will be able to be extubated relatively quickly, and can probably resume more normal diet. However if her need for ventilatory support persists beyond the next 24 hours without evidence of improvement suggest placement of NG/oral feeding tube for enteral feeding 10. Infectious disease-patient with positive UA and given a dose of both azithromycin and ceftriaxone in the ER. Unclear whether there is actually UTI in this situation which probably does not explain patient's presentation. Negative lumbar puncture as well in probably should continue with the ceftriaxone at least until urine culture results are available Dr. Swift (patient's PCP) will assume care later this morning, along with the tele-Air[employer] Maintenance Chief. Discussed briefly with Dr. Swift. Time-Based Coding :: [TOTAL MINUTES] spent with patient and on the chart (including review of chart, obtaining history, exam, reviewing outside data, placing orders, documenting exam and treatment plan, and counseling patient) on [DATE]. PROFEE Charge Codes Initial inpatient/observation care: [id number]
[2024-07-05] MEDS: DEXTROSE 5%-0.45% NS 1,000 ML 100 ML IV (06:22)
[2024-07-05 06:33] LABS: Cryptococcus neoformans/gattii Not Detected (Not Detect); Enterovirus Not Detected (Not Detect); Escherichia coli K1 Not Detected (Not Detect); Haemophilus influenzae Not Detected (Not Detect); Herpes simplex virus 1 Not Detected (Not Detect); Herpes simplex virus 2 Not Detected (Not Detect); Human herpesvirus 6 Not Detected (Not Detect); Human parechovirus Not Detected (Not Detect); Listeria monocytogenes Not Detected (Not Detect); Neisseria meningitidis Not Detected (Not Detect); Streptococcus agalactiae Not Detected (Not Detect); Streptococcus pneumoniae Not Detected (Not Detect); Varicella Zoster Virus Not Detected (Not Detecte)
[2024-07-05] MEDS: dexmedeTOMIDine in 0.9 % NaCL 400 MCG/100 ML PLAST..BAG IV (06:39)
[2024-07-05 06:55] LABS: Add Manual Diff / Slide Review NO; Basophils Absolute Auto 100 /uL (0-100); Basophils Percent Auto 0.3 % (0-2); Eosinophils Absolute Auto 0 /uL (0-450); Hematocrit 34.4 % (36-46); Lymphocytes Absolute Auto 1500 /uL (1100-4500); Lymphocytes Percent Auto 8.2 % (25-40); Mean Corpuscular HGB Conc 34.8 % (30-36); Mean Corpuscular Hemoglobin 33.5 PG (26-34); Mean Corpuscular Volume 96.3 fL (80-100); Monocytes Absolute Auto 1100 /uL (0-900); Monocytes Percent Auto 5.8 % (3-14); Neutrophils Absolute Auto 15900 /uL (1500-7000); Neutrophils Percent Auto 85.7 % (50-75); Platelet Count 325 X10^3/uL (150-400); Red Blood Cell Count 3.57 X10^6/uL (4.0-5.2); Red Cell Distribution Width 13.9 % (11.6-14.8); White Blood Cell Count 18.5 X10^3/uL (4.5-11.0)
[2024-07-05 07:05] LABS: Alanine Aminotransferase 23 IU/L (<35); Albumin 4.2 g/dL (3.5-5.0); Albumin Globulin Ratio 1.4 (1.0-2.8); Alkaline Phosphatase 85 U/L (38-126); Aspartate Aminotransferase 33 IU/L (14-36); BUN Creatinine Ratio 22.2 (6-22); Bilirubin Total 0.5 mg/dL (0.2-1.3); Blood Urea Nitrogen 20 mg/dL (7-17); Carbon Dioxide 23 mmol/L (22-32); Estimated Glomerular Filt Rate > 60 mL/min (>60); HEMOLYSIS < 15 (0-50); Potassium 3.4 mmol/L (3.4-5.1); Sodium 139 mmol/L (137-145); Total Protein 7.2 g/dL (6.3-8.2)
[2024-07-05 07:06] LABS: Glucose 199 mg/dL (80-110)
[2024-07-05 07:07] LABS: Calcium 8.7 mg/dL (8.4-10.2); Chloride 106 mmol/L (98-107)
[2024-07-05] MEDS: HYDROMORPHONE 1 MG INJ 0.5 MG IV (07:37)
[2024-07-05] MEDS: ENOXAPARIN 40 MG/0.4 ML SYRINGE SUBCUT ×2 (07:39→17:51)
[2024-07-05 08:04] LABS: Lactate (Lactic Acid) 2.4 mmol/L (0.7-2.1)
[2024-07-05] MEDS: MIDAZOLAM 2 MG/2 ML VIAL IV (08:20)
[2024-07-05] MEDS: NOREPINEPHRINE BITARTRATE/D5W 4 MG/250 ML PLAST..BAG 31.538 MG IV (08:20)
--- NOTE | 2024-07-05 08:22 | PC.NURSE ---
0700: Rec'd report from JAYMIE Figueroa. Pt resting on stretcher intubated/sedated with propofol and precedex with vent settings 500/40/18/5 and tolerating vent well. HR 80's w/o ectopy, COVID+, lungs clear in upper pollard, Abd SNT, altamirano draining clear yellow urine about 100mL at shift change. 0800: BP 60/40's. propofol decreased per MAR, [address] Swift called and made aware. BP continues to decrease. Propofol paused. Verbal order for levophed gtt. Dr Bower in ED and at bedside. MAR order from Dr Bower for Versed due to patient intensely bucking tube. 0815: BP 157/73 without propofol infusing. Held. RT in for ABG 0820: BP 70/s systolic. Levophed started. Dr Swift in room. verbal order for 2L NS bolus. Infusing. in room and consulting with Dr Swift.
[2024-07-05 08:34] LABS: Base Excess ABG -2.5 mmol/L (-2-3); HCO3 ABG 21 mmol/L (23-27); Oxygen Saturation ABG 81 % (95-100); PCO2 ABG 32.1 mmHg (35-45); TCO2 ABG 21 mmol/L (23-27); pH ABG 7.43 (7.35-7.45)
--- NOTE | 2024-07-05 09:19 | PM.CN.EICU ---
History of Present Illness Consult details IF CAMERA ACTIVATED, patient seen via real-time interactive audiovisual communication: Camera not activated Date Patient Seen: 07/05/24 Chief complaint: Intubated Reason for consult: acute respiratory failure, AMS, sepsis Consent obtained for tele-delivery professional care: Yes Patient Location: ICU (EMERGENCY) Provider location (State): [place] Other participants/roles: RN- ED Narrative: Called for admit review, new patient to be admitted to ICU and will need video assessment on arrival to ICU [facility] Medical History (Updated 07/05/24 @ 09:23 by Lety Gifford MD) Former smoker GERD without esophagitis Mixed hyperlipidemia Essential hypertension PTSD (post-traumatic stress disorder) Generalized anxiety disorder Depression Chronic pain syndrome Degenerative disc disease Spinal stenosis Surgical History (Updated 07/05/24 @ 07:12 by Jose Longoria MD) Status post hip hemiarthroplasty (~01/2024) Status post cholecystectomy Status post cervical spinal fusion Family History Mother Hypertension Cancer Father Stroke Social History marital status: household members: spouse occupational status: employed Smoking Status: Former smoker alcohol intake: never substance use type: does not use Current Medications Current Medications Medications: Home Medications CHOLECALCIFEROL (VITAMIN D3) (Vitamin D3) 5,000 iu PO Q DAY ##0 08/25/10 [History Confirmed 02/11/24] VITAMIN C - (VITAMIN C) 1,000 mg PO Q DAY ##0 08/25/10 [History Confirmed 02/11/24] Vitamin E (Alpha-Tocopherol) 800 unit PO Q DAY ##0 08/25/10 [History Confirmed 02/11/24] COENZYME Q10/VITAMIN E (CO-Q-10 200mg) 200 mg PO QDAY ##0 03/13/13 [History Confirmed 02/11/24] [FISH OIL] 1,000 mg PO DAILY ##0 03/13/13 [History Confirmed 02/11/24] [GLUCOSAMINE] 1,500 mg PO Q DAY ##0 03/13/13 [History Confirmed 02/11/24] buprenorphine 8 mg-naloxone 2 mg sublingual film (Suboxone) 8 film sublingual TID ##0 03/13/13 [History Confirmed 02/11/24] gabapentin 600 mg tablet (Neurontin) 600 mg PO TID ##0 03/13/13 [History Confirmed 02/11/24] nadolol 20 mg tablet (Corgard) 40 mg PO QDAY ##0 03/13/13 [History Confirmed 02/11/24] Miralax 1 tbsp PO DAILY 02/11/24 [History Confirmed 02/11/24] vitamin B complex 1 tab PO DAILY 02/11/24 [History Confirmed 02/11/24] sulfamethoxazole 800 mg-trimethoprim 160 mg tablet 1 tab PO BID #14 tabs 02/13/24 [Rx] Visit Medications (administered) Generic Name Dose Route Start Last Admin Trade Name Freq PRN Reason Stop Dose Admin Chlorhexidine Gluconate 15 ml 07/05/24 06:00 07/05/24 07:45 Chlorhexidine Gluconate 15 Ml Cup PO Not Given Q6HR KATTY Enoxaparin Sodium 40 mg 07/05/24 06:00 07/05/24 07:39 Enoxaparin 40 Mg/0.4 Ml Syringe SUBCUT 40 mg Q12H KATTY Administration Hydromorphone HCl 0.5 mg 07/05/24 05:52 07/05/24 07:37 Hydromorphone 1 Mg Inj IV 0.5 mg Q6HR PRN Administration Pain, Severe (7-10) Propofol 1,000 mg in 100 mls @ 25.23 mls/hr 07/05/24 03:00 07/05/24 09:10 Propofol IV 19.82 mcg/kg/min TITRATE KATTY 10 mls/hr Titration Protocol 50 MCG/KG/MIN Fentanyl 1,000 mcg/ Dextrose 250 mls @ 14.718 mls/hr 07/05/24 04:00 07/05/24 08:48 IV 2 mcg/kg/hr TITRATE KATTY 42.05 mls/hr Titration Protocol 0.7 MCG/KG/HR Dextrose/Sodium Chloride 1,000 mls @ 100 mls/hr 07/05/24 06:00 07/05/24 09:09 Dextrose 5%-0.45% Ns IV 20 mls/hr CONT KATTY Infusion dexmedeTOMIDine in 0.9 % NaCL 400 mcg in 100 mls @ 4.205 mls/hr 07/05/24 06:45 07/05/24 07:18 Precedex IV 0.4 mcg/kg/hr TITRATE KATTY 8.41 mls/hr Titration Protocol 0.2 MCG/KG/HR NOREPINEPHRINE BITARTRATE/D5W 4 mg in 250 mls @ 31.538 mls/hr 07/05/24 08:10 07/05/24 09:09 Levophed IV 0.1 mcg/kg/min TITRATE KATTY 30 mls/hr Titration Protocol 0.1 MCG/KG/MIN Sodium Chloride 1,000 mls @ 1,000 mls/hr 07/05/24 08:46 07/05/24 08:48 Normal Saline 0.9% IV 07/05/24 09:45 1,000 mls/hr BOLUS ONE Administration Midazolam HCl 2 mg 07/05/24 08:10 07/05/24 08:20 Midazolam 2 Mg/2 Ml Vial IV 2 mg Q1HR PRN Administration sedation Review of Systems Review of Systems Narrative: unable to assess, intubated, sedated Exam Vital Signs (past 8 hours): - 07/05/24 02:41 07/05/24 03:20 07/05/24 03:20 Temperature 98.9 F Pulse Rate 153 H 168 H Respiratory Rate 10 L 21 Blood Pressure 233/139 H 257/132 H Pulse Oximetry 100 100 Oxygen Delivery Method Ambu Bag Fraction of Inspired Oxygen 07/05/24 03:24 07/05/24 03:25 07/05/24 03:25 Temperature Pulse Rate 170 H Respiratory Rate 22 Blood Pressure 224/140 H Pulse Oximetry 100 Oxygen Delivery Method Fraction of Inspired Oxygen 60 07/05/24 03:28 07/05/24 03:28 07/05/24 03:30 Temperature Pulse Rate 171 H Respiratory Rate 23 Blood Pressure 167/99 H 190/125 H Pulse Oximetry 100 Oxygen Delivery Method Fraction of Inspired Oxygen 07/05/24 03:30 07/05/24 03:35 07/05/24 03:35 Temperature Pulse Rate 170 H 132 H Respiratory Rate 23 25 H Blood Pressure 182/106 H Pulse Oximetry 100 100 Oxygen Delivery Method Fraction of Inspired Oxygen 07/05/24 03:46 07/05/24 03:46 07/05/24 03:50 Temperature 96.3 F L 97.0 F L Pulse Rate 113 H 113 H Respiratory Rate 20 22 Blood Pressure 191/96 H Pulse Oximetry 100 99 Oxygen Delivery Method Fraction of Inspired Oxygen 07/05/24 03:50 07/05/24 03:55 07/05/24 03:55 Temperature 97.3 F L Pulse Rate 106 H Respiratory Rate 21 Blood Pressure 166/90 H 145/94 H Pulse Oximetry 99 Oxygen Delivery Method Fraction of Inspired Oxygen 07/05/24 04:00 07/05/24 04:00 07/05/24 04:05 Temperature 97.5 F L 98.1 F Pulse Rate 105 H 105 H Respiratory Rate 19 20 Blood Pressure 145/76 H Pulse Oximetry 99 99 Oxygen Delivery Method Fraction of Inspired Oxygen 07/05/24 04:05 07/05/24 04:10 07/05/24 04:10 Temperature 98.2 F Pulse Rate 97 H Respiratory Rate 21 Blood Pressure 129/79 112/65 Pulse Oximetry 99 Oxygen Delivery Method Fraction of Inspired Oxygen 07/05/24 04:16 07/05/24 04:16 07/05/24 04:20 Temperature 98.6 F 98.6 F Pulse Rate 95 H 94 H Respiratory Rate 18 20 Blood Pressure 107/66 Pulse Oximetry 99 99 Oxygen Delivery Method Fraction of Inspired Oxygen 07/05/24 04:20 07/05/24 04:26 07/05/24 04:26 Temperature 98.6 F Pulse Rate 100 H Respiratory Rate 18 Blood Pressure 99/61 145/88 H Pulse Oximetry 99 Oxygen Delivery Method Fraction of Inspired Oxygen 07/05/24 04:30 07/05/24 04:31 07/05/24 04:35 Temperature 98.8 F 99.0 F 99.1 F Pulse Rate 105 H 109 H 107 H Respiratory Rate 18 27 H 18 Blood Pressure Pulse Oximetry 100 100 100 Oxygen Delivery Method Fraction of Inspired Oxygen 07/05/24 04:35 07/05/24 04:40 07/05/24 04:40 Temperature Pulse Rate 109 H Respiratory Rate 24 Blood Pressure 131/79 156/88 H Pulse Oximetry 100 Oxygen Delivery Method Fraction of Inspired Oxygen 07/05/24 04:45 07/05/24 04:45 07/05/24 04:50 Temperature Pulse Rate 122 H 129 H Respiratory Rate 18 18 Blood Pressure 198/121 H Pulse Oximetry 100 100 Oxygen Delivery Method Fraction of Inspired Oxygen 07/05/24 04:50 07/05/24 04:55 07/05/24 04:55 Temperature 99.0 F Pulse Rate 135 H Respiratory Rate 18 Blood Pressure 212/118 H 212/117 H Pulse Oximetry 100 Oxygen Delivery Method Fraction of Inspired Oxygen 07/05/24 05:00 07/05/24 05:00 07/05/24 05:30 Temperature 99.1 F 99.5 F Pulse Rate 138 H 98 H Respiratory Rate 18 19 Blood Pressure 199/108 H Pulse Oximetry 100 99 Oxygen Delivery Method Fraction of Inspired Oxygen 07/05/24 05:31 07/05/24 05:31 07/05/24 05:44 Temperature 99.5 F 99.7 F H Pulse Rate 106 H 101 H Respiratory Rate 18 18 Blood Pressure 93/57 L Pulse Oximetry 98 100 Oxygen Delivery Method Fraction of Inspired Oxygen 07/05/24 05:44 07/05/24 05:45 07/05/24 05:45 Temperature 99.7 F H Pulse Rate 101 H Respiratory Rate 18 Blood Pressure 91/60 91/66 Pulse Oximetry 100 Oxygen Delivery Method Fraction of Inspired Oxygen 07/05/24 06:00 07/05/24 06:00 07/05/24 06:15 Temperature 99.9 F H 100.0 F H Pulse Rate 86 98 H Respiratory Rate 18 18 Blood Pressure 107/63 Pulse Oximetry 98 100 Oxygen Delivery Method Fraction of Inspired Oxygen 07/05/24 06:15 07/05/24 06:30 07/05/24 06:30 Temperature 100.0 F H Pulse Rate 100 H Respiratory Rate 18 Blood Pressure 155/79 H 141/78 H Pulse Oximetry 100 Oxygen Delivery Method Fraction of Inspired Oxygen 07/05/24 06:45 07/05/24 06:45 07/05/24 07:00 Temperature 100.0 F H 100.2 F H Pulse Rate 99 H 94 H Respiratory Rate 20 18 Blood Pressure 130/77 Pulse Oximetry 100 99 Oxygen Delivery Method Fraction of Inspired Oxygen 07/05/24 07:00 07/05/24 07:15 07/05/24 07:15 Temperature 100.0 F H Pulse Rate 85 Respiratory Rate 18 Blood Pressure 125/69 100/59 L Pulse Oximetry 99 Oxygen Delivery Method Fraction of Inspired Oxygen 07/05/24 07:30 07/05/24 07:36 07/05/24 07:36 Temperature 100.4 F H 100.6 F H Pulse Rate 80 95 H Respiratory Rate 18 27 H Blood Pressure 112/72 Pulse Oximetry 100 100 Oxygen Delivery Method Fraction of Inspired Oxygen 07/05/24 07:47 07/05/24 07:54 07/05/24 07:54 Temperature 100.6 F H Pulse Rate 82 Respiratory Rate 18 Blood Pressure 65/46 L Pulse Oximetry 100 Oxygen Delivery Method Mechanical Ventilation Fraction of Inspired Oxygen 07/05/24 07:56 07/05/24 07:56 07/05/24 07:59 Temperature 100.6 F H 100.8 F H Pulse Rate 80 79 Respiratory Rate 18 18 Blood Pressure 62/44 L Pulse Oximetry 100 100 Oxygen Delivery Method Fraction of Inspired Oxygen 07/05/24 07:59 07/05/24 08:00 07/05/24 08:00 Temperature 100.8 F H Pulse Rate 78 Respiratory Rate 18 Blood Pressure 65/45 L 63/41 L Pulse Oximetry 100 Oxygen Delivery Method Fraction of Inspired Oxygen 07/05/24 08:02 07/05/24 08:02 07/05/24 08:05 Temperature 100.8 F H 100.8 F H Pulse Rate 77 78 Respiratory Rate 18 18 Blood Pressure 63/43 L Pulse Oximetry 100 100 Oxygen Delivery Method Fraction of Inspired Oxygen 07/05/24 08:05 07/05/24 08:10 07/05/24 08:10 Temperature 100.8 F H Pulse Rate 100 H Respiratory Rate 28 H Blood Pressure 71/41 L 131/64 Pulse Oximetry 100 Oxygen Delivery Method Fraction of Inspired Oxygen 07/05/24 08:15 07/05/24 08:15 07/05/24 08:16 Temperature 100.6 F H 100.6 F H Pulse Rate 88 83 Respiratory Rate 22 21 Blood Pressure 157/73 H Pulse Oximetry 100 100 Oxygen Delivery Method Fraction of Inspired Oxygen 07/05/24 08:16 07/05/24 08:21 07/05/24 08:21 Temperature 100.6 F H Pulse Rate 72 Respiratory Rate 20 Blood Pressure 119/58 L 75/41 L Pulse Oximetry 100 Oxygen Delivery Method Fraction of Inspired Oxygen 07/05/24 08:26 07/05/24 08:26 07/05/24 08:28 Temperature 100.4 F H 100.4 F H Pulse Rate 70 70 Respiratory Rate 20 20 Blood Pressure 59/36 L Pulse Oximetry 100 100 Oxygen Delivery Method Fraction of Inspired Oxygen 07/05/24 08:28 07/05/24 08:29 07/05/24 08:29 Temperature 100.4 F H Pulse Rate 71 Respiratory Rate 21 Blood Pressure 58/36 L 61/41 L Pulse Oximetry 100 Oxygen Delivery Method Fraction of Inspired Oxygen 07/05/24 08:30 07/05/24 08:30 07/05/24 08:32 Temperature 100.4 F H Pulse Rate 71 Respiratory Rate 19 Blood Pressure 63/42 L 58/37 L Pulse Oximetry 100 Oxygen Delivery Method Fraction of Inspired Oxygen 07/05/24 08:32 07/05/24 08:34 07/05/24 08:34 Temperature 100.4 F H 100.4 F H Pulse Rate 70 71 Respiratory Rate 18 21 Blood Pressure 65/41 L Pulse Oximetry 100 100 Oxygen Delivery Method Fraction of Inspired Oxygen 07/05/24 08:36 07/05/24 08:36 07/05/24 08:38 Temperature 100.4 F H 100.4 F H Pulse Rate 71 70 Respiratory Rate 18 18 Blood Pressure 67/45 L Pulse Oximetry 100 100 Oxygen Delivery Method Fraction of Inspired Oxygen 07/05/24 08:38 07/05/24 08:40 07/05/24 08:40 Temperature 100.4 F H Pulse Rate 70 Respiratory Rate 18 Blood Pressure 68/45 L 70/48 L Pulse Oximetry 100 Oxygen Delivery Method Fraction of Inspired Oxygen 07/05/24 08:42 07/05/24 08:42 07/05/24 08:44 Temperature 100.4 F H 100.4 F H Pulse Rate 69 69 Respiratory Rate 18 18 Blood Pressure 68/48 L Pulse Oximetry 100 100 Oxygen Delivery Method Fraction of Inspired Oxygen 07/05/24 08:44 07/05/24 08:46 07/05/24 08:46 Temperature 100.4 F H Pulse Rate 69 Respiratory Rate 18 Blood Pressure 73/50 L 77/52 L Pulse Oximetry 100 Oxygen Delivery Method Fraction of Inspired Oxygen 07/05/24 08:48 07/05/24 08:48 07/05/24 08:50 Temperature 100.4 F H 100.4 F H Pulse Rate 69 70 Respiratory Rate 18 18 Blood Pressure 83/52 L Pulse Oximetry 100 100 Oxygen Delivery Method Fraction of Inspired Oxygen 07/05/24 08:50 Temperature Pulse Rate Respiratory Rate Blood Pressure 90/53 L Pulse Oximetry Oxygen Delivery Method Fraction of Inspired Oxygen Fraction of Inspired Oxygen 60 Oxygen Delivery Method Mechanical Ventilation Objective Labs 07/05/24 06:39 07/05/24 06:39 Labs: Laboratory Results - last 24 hr 07/05/24 07/05/24 07/05/24 02:50 03:00 03:40 WBC 18.6 H RBC 4.17 Hgb 13.9 Hct 40.3 MCV 96.8 MCH 33.4 MCHC 34.5 RDW 14.0 Plt Count 349 Neut % (Auto) 88.7 H Lymph % (Auto) 8.6 L [place] % (Auto) 1.1 L Eos % (Auto) 0.7 L Baso % (Auto) 0.9 Neut # (Auto) 16752 H Lymph # (Auto) 1600 [place] # (Auto) 200 Eos # (Auto) 100 Baso # (Auto) 200 H ESR 57 H PT 11.6 INR 1.0 ABG pH ABG pCO2 ABG pO2 ABG HCO3 ABG Total CO2 ABG O2 Saturation ABG Base Excess Respiration Rate O2 Delivery Device Mode of Support FiO2 % PEEP or CPAP Sodium 140 Potassium 3.1 L Chloride 103 Carbon Dioxide 18 L BUN 18 H Creatinine 0.82 Estimated GFR > 60 BUN/Creatinine Ratio 22.0 Glucose 304 H Lactate 5.3 H* Calcium 10.2 Magnesium 1.8 Total Bilirubin 0.9 AST 38 H ALT 78 H Alkaline Phosphatase 101 Ammonia < 9 L Total Creatine Kinase 69 Troponin I 0.053 H C-Reactive Protein < 0.5 Total Protein 8.8 H Albumin 5.0 Globulin 3.8 Albumin/Globulin Ratio 1.3 Procalcitonin 0.052 Urine Color Yellow Urine Appearance Slightly cloudy Urine pH 7.0 Ur Specific [place] 1.020 Urine Protein 3+ H Urine Glucose (UA) 2+ H Urine Ketones Negative Urine Occult Blood 2+ H Urine Nitrate Positive H Urine Bilirubin Negative Urine Urobilinogen 0.2 Ur Leukocyte Esterase Negative Urine RBC 1-5/hpf Urine WBC 0-1/hpf Ur Squamous Epith Cells 5-10 /hpf H Urine Bacteria Many (>30) H Hyaline Casts 5-10/lpf Ur Culture Indicated? Specimen cultured Vol Urine Centrifuged 10ml (spun) CSF Tube Number CSF Volume CSF Appearance CSF Color CSF WBC CSF RBC CSF Mononuclear WBCs CSF Polynuclear WBCs CSF Glucose CSF Total Protein CSF C.neoform/gat PCR CSF CMV DNA (PCR) CSF Enterovirus (PCR) CSF E. coli (PCR) CSF H. influenzae (PCR) CSF HSV I (PCR) CSF HSV II (PCR) CSF HHV 6 (PCR) CSF L.monocytogenes PCR CSF N. meningitidis PCR CSF Parechovirus (PCR) CSF S. agalactiae (PCR) CSF S. pneumoniae (PCR) CSF VZV (PCR) U Opiates 300ng/mL cut Negative Ur Oxycodone Screen Negative Urine Methadone Screen Negative Ur Barbiturates Screen Negative U Tricyclic Antidepress Negative Ur Phencyclidine Scrn Negative Ur Amphetamines Screen Negative U Methamphetamines Scrn Negative Ur MDMA Scrn (Ecstasy) Negative U Benzodiazepines Scrn Negative Urine Cocaine Screen Negative U Marijuana (THC) Screen Positive H Urine Specific [place] Ur Creatinine Chlamy pneumoniae PCR Not detected Adenovirus (PCR) Not detected B.parapertussis DNA PCR Not detected Coronavirus OC43 (PCR) Not detected Coronavirus HKU1 (PCR) Not detected Coronavirus 229E (PCR) Not detected SARS-CoV-2 (PCR) Detected H Coronavirus NL63 (PCR) Not detected Human Metapneumovir PCR Not detected Influenza Type A (PCR) Not detected Influenza Type B (PCR) Not detected M. pneumoniae (PCR) Not detected Parainfluenza 1 (PCR) Not detected Parainfluenza 2 (PCR) Not detected Parainfluenza 3 (PCR) Not detected Parainfluenza 4 (PCR) Not detected RSV (PCR) Not detected Entero/Rhino (PCR) Not detected Blood Type A Positive Antibody Screen Negative 07/05/24 07/05/24 07/05/24 03:40 03:44 04:30 WBC RBC Hgb Hct MCV MCH MCHC RDW Plt Count Neut % (Auto) Lymph % (Auto) [place] % (Auto) Eos % (Auto) Baso % (Auto) Neut # (Auto) Lymph # (Auto) [place] # (Auto) Eos # (Auto) Baso # (Auto) ESR PT INR ABG pH 7.40 ABG pCO2 34.8 L ABG pO2 182 H ABG HCO3 21 L ABG Total CO2 21 L ABG O2 Saturation 100 ABG Base Excess -2.8 L Respiration Rate 18 O2 Delivery Device Adult ventilator Mode of Support Assist cont ventilat FiO2 % 60.0 % PEEP or CPAP 5 Sodium Potassium Chloride Carbon Dioxide BUN Creatinine Estimated GFR BUN/Creatinine Ratio Glucose Lactate Calcium Magnesium Total Bilirubin AST ALT Alkaline Phosphatase Ammonia Total Creatine Kinase Troponin I C-Reactive Protein Total Protein Albumin Globulin Albumin/Globulin Ratio Procalcitonin Urine Color Urine Appearance Urine pH Normal Ur Specific [place] Urine Protein Urine Glucose (UA) Urine Ketones Urine Occult Blood Urine Nitrate Urine Bilirubin Urine Urobilinogen Ur Leukocyte Esterase Urine RBC Urine WBC Ur Squamous Epith Cells Urine Bacteria Hyaline Casts Ur Culture Indicated? Vol Urine Centrifuged CSF Tube Number 3 CSF Volume 1.5 ml CSF Appearance Clear CSF Color Colorless CSF WBC 0 CSF RBC 1 CSF Mononuclear WBCs Not Reportable CSF Polynuclear WBCs Not Reportable CSF Glucose 102 H CSF Total Protein 131 H CSF C.neoform/gat PCR Not detected CSF CMV DNA (PCR) Not detected CSF Enterovirus (PCR) Not detected CSF E. coli (PCR) Not detected CSF H. influenzae (PCR) Not detected CSF HSV I (PCR) Not detected CSF HSV II (PCR) Not detected CSF HHV 6 (PCR) Not detected CSF L.monocytogenes PCR Not detected CSF N. meningitidis PCR Not detected CSF Parechovirus (PCR) Not detected CSF S. agalactiae (PCR) Not detected CSF S. pneumoniae (PCR) Not detected CSF VZV (PCR) Not detected U Opiates 300ng/mL cut Ur Oxycodone Screen Urine Methadone Screen Ur Barbiturates Screen U Tricyclic Antidepress Ur Phencyclidine Scrn Ur Amphetamines Screen U Methamphetamines Scrn Ur MDMA Scrn (Ecstasy) U Benzodiazepines Scrn Urine Cocaine Screen U Marijuana (THC) Screen Urine Specific [place] Normal Ur Creatinine Normal Chlamy pneumoniae PCR Adenovirus (PCR) B.parapertussis DNA PCR Coronavirus OC43 (PCR) Coronavirus HKU1 (PCR) Coronavirus 229E (PCR) SARS-CoV-2 (PCR) Coronavirus NL63 (PCR) Human Metapneumovir PCR Influenza Type A (PCR) Influenza Type B (PCR) M. pneumoniae (PCR) Parainfluenza 1 (PCR) Parainfluenza 2 (PCR) Parainfluenza 3 (PCR) Parainfluenza 4 (PCR) RSV (PCR) Entero/Rhino (PCR) Blood Type Antibody Screen 07/05/24 07/05/24 07/05/24 05:00 06:39 07:29 WBC 18.5 H RBC 3.57 L Hgb 12.0 Hct 34.4 L MCV 96.3 MCH 33.5 MCHC 34.8 RDW 13.9 Plt Count 325 Neut % (Auto) 85.7 H Lymph % (Auto) 8.2 L [place] % (Auto) 5.8 Eos % (Auto) 0.0 L Baso % (Auto) 0.3 Neut # (Auto) 65643 H Lymph # (Auto) 1500 [place] # (Auto) 1100 H Eos # (Auto) 0 Baso # (Auto) 100 ESR PT INR ABG pH ABG pCO2 ABG pO2 ABG HCO3 ABG Total CO2 ABG O2 Saturation ABG Base Excess Respiration Rate O2 Delivery Device Mode of Support FiO2 % PEEP or CPAP Sodium 139 Potassium 3.4 Chloride 106 Carbon Dioxide 23 BUN 20 H Creatinine 0.90 Estimated GFR > 60 BUN/Creatinine Ratio 22.2 H Glucose 199 H D Lactate 4.0 H 2.4 H Calcium 8.7 Magnesium Total Bilirubin 0.5 AST 33 ALT 23 Alkaline Phosphatase 85 Ammonia Total Creatine Kinase Troponin I C-Reactive Protein Total Protein 7.2 Albumin 4.2 Globulin 3.0 Albumin/Globulin Ratio 1.4 Procalcitonin Urine Color Urine Appearance Urine pH Ur Specific [place] Urine Protein Urine Glucose (UA) Urine Ketones Urine Occult Blood Urine Nitrate Urine Bilirubin Urine Urobilinogen Ur Leukocyte Esterase Urine RBC Urine WBC Ur Squamous Epith Cells Urine Bacteria Hyaline Casts Ur Culture Indicated? Vol Urine Centrifuged CSF Tube Number CSF Volume CSF Appearance CSF Color CSF WBC CSF RBC CSF Mononuclear WBCs CSF Polynuclear WBCs CSF Glucose CSF Total Protein CSF C.neoform/gat PCR CSF CMV DNA (PCR) CSF Enterovirus (PCR) CSF E. coli (PCR) CSF H. influenzae (PCR) CSF HSV I (PCR) CSF HSV II (PCR) CSF HHV 6 (PCR) CSF L.monocytogenes PCR CSF N. meningitidis PCR CSF Parechovirus (PCR) CSF S. agalactiae (PCR) CSF S. pneumoniae (PCR) CSF VZV (PCR) U Opiates 300ng/mL cut Ur Oxycodone Screen Urine Methadone Screen Ur Barbiturates Screen U Tricyclic Antidepress Ur Phencyclidine Scrn Ur Amphetamines Screen U Methamphetamines Scrn Ur MDMA Scrn (Ecstasy) U Benzodiazepines Scrn Urine Cocaine Screen U Marijuana (THC) Screen Urine Specific [place] Ur Creatinine Chlamy pneumoniae PCR Adenovirus (PCR) B.parapertussis DNA PCR Coronavirus OC43 (PCR) Coronavirus HKU1 (PCR) Coronavirus 229E (PCR) SARS-CoV-2 (PCR) Coronavirus NL63 (PCR) Human Metapneumovir PCR Influenza Type A (PCR) Influenza Type B (PCR) M. pneumoniae (PCR) Parainfluenza 1 (PCR) Parainfluenza 2 (PCR) Parainfluenza 3 (PCR) Parainfluenza 4 (PCR) RSV (PCR) Entero/Rhino (PCR) Blood Type Antibody Screen 07/05/24 08:27 WBC RBC Hgb Hct MCV MCH MCHC RDW Plt Count Neut % (Auto) Lymph % (Auto) [place] % (Auto) Eos % (Auto) Baso % (Auto) Neut # (Auto) Lymph # (Auto) [place] # (Auto) Eos # (Auto) Baso # (Auto) ESR PT INR ABG pH 7.43 ABG pCO2 32.1 L ABG pO2 43 L* ABG HCO3 21 L ABG Total CO2 21 L ABG O2 Saturation 81 L* ABG Base Excess -2.5 L Respiration Rate O2 Delivery Device Mode of Support FiO2 % PEEP or CPAP Sodium Potassium Chloride Carbon Dioxide BUN Creatinine Estimated GFR BUN/Creatinine Ratio Glucose Lactate Calcium Magnesium Total Bilirubin AST ALT Alkaline Phosphatase Ammonia Total Creatine Kinase Troponin I C-Reactive Protein Total Protein Albumin Globulin Albumin/Globulin Ratio Procalcitonin Urine Color Urine Appearance Urine pH Ur Specific [place] Urine Protein Urine Glucose (UA) Urine Ketones Urine Occult Blood Urine Nitrate Urine Bilirubin Urine Urobilinogen Ur Leukocyte Esterase Urine RBC Urine WBC Ur Squamous Epith Cells Urine Bacteria Hyaline Casts Ur Culture Indicated? Vol Urine Centrifuged CSF Tube Number CSF Volume CSF Appearance CSF Color CSF WBC CSF RBC CSF Mononuclear WBCs CSF Polynuclear WBCs CSF Glucose CSF Total Protein CSF C.neoform/gat PCR CSF CMV DNA (PCR) CSF Enterovirus (PCR) CSF E. coli (PCR) CSF H. influenzae (PCR) CSF HSV I (PCR) CSF HSV II (PCR) CSF HHV 6 (PCR) CSF L.monocytogenes PCR CSF N. meningitidis PCR CSF Parechovirus (PCR) CSF S. agalactiae (PCR) CSF S. pneumoniae (PCR) CSF VZV (PCR) U Opiates 300ng/mL cut Ur Oxycodone Screen Urine Methadone Screen Ur Barbiturates Screen U Tricyclic Antidepress Ur Phencyclidine Scrn Ur Amphetamines Screen U Methamphetamines Scrn Ur MDMA Scrn (Ecstasy) U Benzodiazepines Scrn Urine Cocaine Screen U Marijuana (THC) Screen Urine Specific [place] Ur Creatinine Chlamy pneumoniae PCR Adenovirus (PCR) B.parapertussis DNA PCR Coronavirus OC43 (PCR) Coronavirus HKU1 (PCR) Coronavirus 229E (PCR) SARS-CoV-2 (PCR) Coronavirus NL63 (PCR) Human Metapneumovir PCR Influenza Type A (PCR) Influenza Type B (PCR) M. pneumoniae (PCR) Parainfluenza 1 (PCR) Parainfluenza 2 (PCR) Parainfluenza 3 (PCR) Parainfluenza 4 (PCR) RSV (PCR) Entero/Rhino (PCR) Blood Type Antibody Screen Assessment & Plan Assessment and plan (1) Acute metabolic encephalopathy: Status: Acute (2) COVID-19: Status: Acute (3) Acute UTI: Status: Acute (4) Essential hypertension: Status: Chronic (5) GERD without esophagitis: Status: Chronic (6) Acute hypoxemic respiratory failure: Status: Acute Assessment & Plan narrative: Respiratory failure. Per ED MD, patient was found to be hypoxemic on EMS arrival to the home- her sats in 80's on RA, she was very agitated. HR at that time 190's- SVT she was intubated and brought to ED she currently remains intubated but her hypoxemia is improving- fio2 is 40%, sat is 100% she is covid positive (reportedly first positve test 5 days ag0o)-today she has fever and chest ct shows small infiltrates in bilateral lower lobes would do sat/sbt daily, do not anticipate prolonged intubation would start decadron for covid pna she is currently on both dex and propofol for sedation - fentanyl for pain would plan to wean sedative gtts and do SAT/pressure support trial today goal rass 0 to -1 Chronic pain-patient chronically on Suboxone for chronic pain likely related to her neck issues. restart suboxone when able Altered mental status/ecepholopathy- most likely from hypoxemia , as well as sepsis from UTI/covid. Tox screen negative except for marijuana LP unrevealing. head CT negative SAT today Patient presented in svt, with hypertension ? withdrawal? now that she is sedated she is hypotensive requring low dose levo. Will continue fluids, wean sedation- try to wean levo. . Patient with a history of chronic beta-peter use - unclear if she has had missed doses continue metoprolol if not hypotensive or requiring pressor TTE trend trop, initial elevation likely demand Infectious disease-patient with positive UA c/f UTI, along with covid 19 has fever. & leukocytosis LP cultures pending but initial review does not look like quality control head infection continue empiric ceftiraxone and azithro follow up cultures trend WBC DVT ppx: lovenox GI ppx: PPI FULL code dispo ICU COVID-19 COVID-19 status: Positive Result date/Date tested (Pos, Neg/Pending): 07/05/24 Time-Based Coding :: Patient will need assessment on arrival to ICU Will sign out to oncoming tele icu MD, Dr West
[2024-07-05 09:24] LABS: Reflexed Lactate in 2 Hours Y
[2024-07-05] MEDS: PANTOPRAZOLE 40 MG VIAL IV (09:27)
--- NOTE | 2024-07-05 09:42 | DI.ECHO.S_ITS ---
[facility] : : [address] : [facility] : : [place], : : [place] [address] : : Phone: [phone] Echocardiogram Report + + :Name: JANICE BRISENO Study Date: 07/05/2024 Height: 72 in : :[facility] ReadingLocation: Weight: 185 lb : : Gender: Female BSA: 2.1 m2 : :: 1955 Age: 69 yrs BP: 141/66 mmHg: :Reason For Study: SEPSIS, COVID : :Ordering Physician: ALESIA, : :ALMA Landers Performed By: Kevin Slaughter : :Referring: ALMA DUMAS : + + Interpretation Summary The ejection fraction is estimated to be 55-60%. Diastolic function could not be accurately assessed due to contradictory data. The right ventricle is normal in size and function. There is mild to moderate tricuspid regurgitation. Right ventricular systolic pressure is estimated to be 40 mmHg plus the clinically estimated CVP which cannot be estimated on this exam. Procedure: A two-dimensional transthoracic echocardiogram with color flow and Doppler was performed. The study quality was technically adequate. There is no prior echocardiogram noted for this patient. The patient was in sinus rhythm with heart rates between 63-75 bpm during the exam. Left Ventricle: The left ventricle is normal in size and wall thickness. The ejection fraction is estimated to be 55-60%. Regional wall motion abnormalities cannot be excluded due to limited visualization. Diastolic function could not be accurately assessed due to contradictory data. Right Ventricle: The right ventricle is normal in size and function. Atria: The left atrial size is normal. Borderline right atrial enlargement. The interatrial septum grossly appears intact with no obvious evidence for an atrial septal defect. Mitral Valve: The mitral valve is normal. There is no mitral valve stenosis. There is no mitral regurgitation noted. Aortic Valve: The aortic valve is trileaflet. The aortic valve is mildly calcified. There is no aortic valve stenosis. No aortic regurgitation is present. Tricuspid Valve: The tricuspid valve is normal. There is no tricuspid stenosis. There is mild to moderate tricuspid regurgitation. Right ventricular systolic pressure is estimated to be 40 mmHg plus the clinically estimated CVP which cannot be estimated on this exam. Pulmonic Valve: The pulmonic valve is not well seen, but is grossly normal. There is no pulmonic valvular stenosis. There is a trace or physiologic amount of pulmonic regurgitation. Great Vessels: The aortic root is normal size. The dimensions of the ascending aorta are normal. Pericardium/ Pleura There is no pericardial effusion. There is no pleural effusion. MMode/2D Measurements & Calculations LVIDd: 3.9 cm LVOT diam: 2.0 cm LVIDs: 2.9 cm Ao root diam: 2.9 cm IVSd: 0.91 cm asc Aorta Diam: 3.4 cm LVPWd: 1.0 cm LV hirsch. diameter/BSA (cm/m^2): 1.9 LV sys. diameter/BSA (cm/m^2): 1.4 FS: 25.0 % LA A2 area: 21.5 cm2 RA long axis: 5.4 cm LA A4 area: 21.6 cm2 RA area: 18.7 cm2 LA length (vol): 6.1 cm RA vol: 55.1 ml LA vol: 65.2 ml RA : 26.7 ml/m2 LA vol index: 31.6 ml/m2 RVD1 (basal): 3.5 cm IVC diam: 2.0 cm RVD2 (mid): 3.0 cm TAPSE: 2.2 cm Doppler Measurements & Calculations Ao V2 max: 190.5 cm/sec LVOT Max Charbel: 101.7 cm/sec Ao V2 mean: 128.2 cm/sec LV V1 max P.1 mmHg Ao V2 VTI: 41.9 cm LV V1 VTI: 22.3 cm Ao max P.5 mmHg Ao mean P.4 mmHg IRINA(I,D): 1.7 cm2 MV E max charbel: 63.7 cm/sec IRINA(V,D): 1.7 cm2 MV A max charbel: 74.5 cm/sec IRINA indexed to BSA (cm^2/m^2): 0.84 MV E/A: 0.85 sev ratio: 0.53 Med Peak E' Charbel: 6.5 cm/sec E/E' med: 9.8 Lat Peak E' Charbel: 7.5 cm/sec E/E' lat: 8.4 E/e' average: 9.1 MV dec time: 0.25 sec TR max charbel: 331.1 cm/sec TR max P.4 mmHg PA V2 max: 99.6 cm/sec SV(LVOT): 72.9 ml PA V2 mean: 67.7 cm/sec PA mean P.0 mmHg PA pr(Accel): 32.8 mmHg Reading Physician:08:26 PM
[2024-07-05 09:57] LABS: Lactate 2HR (Lactic Acid Rflx) 1.7 mmol/L (0.7-2.1)
[2024-07-05 10:04] LABS: Allen Test for ABG Passed? Yes, Passed; Blood Gas Collection Site Left Radial
[2024-07-05 10:06] LABS: PO2 ABG 43 mmHg (80-100)
[2024-07-05 10:07] LABS: Delivery System Adult Ventilator; Tidal Volume 500
[2024-07-05 10:08] LABS: Fractionated Inspired Oxygen 40 %; PEEP 5; Respiratory Rate 18
[2024-07-05] MEDS: propofoL 1,000 MG/100 ML VIAL 5 MG IV (10:53)
--- NOTE | 2024-07-05 10:56 | PC.NURSE ---
Spoke to EMS, who was on scene with pt at home for clarification on presentation EMS states she was disoriented and unable to be controlled. Unable to follow commands or answer questions. States Pt was thrashing around and unable to speak with copius secretions. BP was 200's/systolic and HR was 180-200 ST, pt was given 5mg Versed and 150mg Ketamine was cardioverted x 1 on scene without intended effect. pt was intubated for airway protection with Ketamine and Kamaljit and transported to ED with L humeral IO in place. Pt with known COVID day 5. h/o suboxone use and last dose was 07/04/24 in AM.
--- NOTE | 2024-07-05 11:15 | PC.NURSE ---
Talked with ICU/tele provider Adeel about pt current condition and plan of care. Provider re-ordering drips that pt is currently on so they can be documented in MAR as pt is titrated off. Provider Tauxe at pt bedside and plan of care is to titrate drips off/down with goal of extubating pt later today. Explained process of care with spouse at bedside.
--- NOTE | 2024-07-05 11:29 | PC.NURSE ---
Report given to Tracee Bills RN and JAYMIE Alfaro.
[2024-07-05] MEDS: fentaNYL 1,000 MCG in DEXTROSE 5% IN WATER 230 ML 63.075 MCG IV ×2 (12:07→15:44)
--- NOTE | 2024-07-05 12:34 | PC.NURSE ---
PT resting without signs of distress. Pt is on vent/drips with stable vital signs. Pt will open eyes to voice, but not tracking with eyes. Pt able to move self slightly to right side independently, pillow placed behind back. Soft wrist restraints remain in place for protection of ET tube and IV lines.
--- NOTE | 2024-07-05 12:50 | PC.NURSE ---
1300: Pt opening eyes and intermittent coughing. Respiratory therapy called. Pt because increasingly agitated. Eyes open, coughing, trying to sit up. Pt was not following request to squeeze RN hand or communicate in any way to show she was cognitively aware of what was going on. Attempted to talk to pt and assess awareness multiple times by RNs and respiratory therapists x 2 in the room. Pt continues to thrash in bed and try to move around/sit up. 1mg IV Midazolam given. Drips Propofol and Precedex increased due to agitated state. Provider Jeniffer notified of pt status by phone. 1335: Pt resting again in bed. No agitation present. Vitals remain stable. Spouse at bedside updated on pt condition and response to decreased sedation.
[2024-07-05] MEDS: MIDAZOLAM 2 MG/2 ML VIAL 1 MG IV (13:12)
--- NOTE | 2024-07-05 13:19 | DIET.CONS ---
Dietary Consultation Note Admission Date: 07/05/2024 05:56 Assessment: 69 y F presented with altered mental status and covid positive. Intubated in field. Nutrition consulted for NPO on vent. Pt in ED, awaiting arrival to ICU. Propofol running at 7.93 mcg/kg/min, providing 105 kcals/day. Per EMR review, physician recommends if ventilatory support lasts beyond 24 h, begin enteral nutrition support via NG/OG tube. Ht: 182.88 cm Wt: 84.1 kg BMI: 25.1 UBW: 86.5 kg on 02/11/24 (2.8% weight loss in 5 months, non-significant) Last BM: () MNA: Bj Score: 11 Labs: RBC 3.57 X10^6/uL (4.0-5.2) L 07/05/24 06:39 Hgb 12.0 g/dL (12.0-16.0) 07/05/24 06:39 Hct 34.4 % (36-46) L 07/05/24 06:39 Creatinine 0.90 mg/dL (0.52-1.04) 07/05/24 06:39 Lactate 1.7 mmol/L (0.7-2.1) 07/05/24 09:38 Nutrition Diagnosis: Inadequate oral intake r/t ventilation aeb NPO status Interventions: 1. Recc initiation of enteral nutrition support in first 48 h as medically able if pt remains intubated and NPO. Recc as follows: Continuous enteral feeding of Pivot 1.5 starting at 10 mL/hr and titrating up by 10-20 mL q 6h as tolerated/if no signs of refeeding syndrome until goal rate of 45 mL/hr. Goal rate provides 1725 kcals with propofol (100% of EER), 101 g protein (100% of EER) and 810 mL water. Tele-engine lathe set up operator tool to manage fluids. 2. Mg, K+. phos labs BID for first 3 days if enteral nutrition support initiated EER: 2716-3154 kcals (20-23 kcal/kg per BMI) 100 g protein (1.2 g/kg per COVID) Monitoring/Evaluations: intubation status, start of TF, rate, labs Electronically Signed by: Molly Bob 07/05/24 13:[address] [id number]
[2024-07-05] MEDS: dexmedeTOMIDine in 0.9 % NaCL 400 MCG/100 ML PLAST..BAG 21.025 MCG IV ×3 (13:37→22:03)
--- NOTE | 2024-07-05 14:30 | PC.NURSE ---
Pt awakened and tried to sit up again while preparing for transport to ICU. Propofol increased, see MAR.
[2024-07-05] MEDS: MIDAZOLAM 50 MG in DEXTROSE 5 % IN WATER 40 ML 5.046 MG IV (16:11)
[2024-07-05] MEDS: POTASSIUM CHLORIDE IN WATER 10 MEQ/100 ML PIGGYBACK 100 MEQ IV ×2 (16:37→17:52)
[2024-07-05 16:48] LABS: MRSA (Nasal) PCR NOT DETECTED (Not Detect)
--- NOTE | 2024-07-05 17:04 | PM.PN.1 ---
Subjective Subjective Date Patient Seen: 07/05/24 Time Patient Seen: 15:00 Interval history: Complex day requiring frequent bedside management. I was directly present at bedside multiple times in ED and during transfer to floor. Acutely unstable blood pressure dangerously low required ongoing management. Doing well with aggressive sedation slate and now upstairs in ICU with tele ICU. Stable on ventilator. Exam Vital Signs (past 8 hours): - 07/05/24 09:06 07/05/24 09:06 07/05/24 09:08 Temperature 100.2 F H 100.2 F H Pulse Rate 73 73 Respiratory Rate 18 18 Blood Pressure 118/61 Pulse Oximetry 100 100 Oxygen Delivery Method 07/05/24 09:08 07/05/24 09:10 07/05/24 09:10 Temperature 100.0 F H Pulse Rate 73 Respiratory Rate 18 Blood Pressure 115/58 L 113/58 L Pulse Oximetry 100 Oxygen Delivery Method 07/05/24 09:12 07/05/24 09:12 07/05/24 09:14 Temperature 100.0 F H 100.0 F H Pulse Rate 72 72 Respiratory Rate 19 18 Blood Pressure 111/57 L Pulse Oximetry 100 100 Oxygen Delivery Method 07/05/24 09:14 07/05/24 09:16 07/05/24 09:16 Temperature 100.0 F H Pulse Rate 72 Respiratory Rate 18 Blood Pressure 110/58 L 110/60 Pulse Oximetry 100 Oxygen Delivery Method 07/05/24 09:18 07/05/24 09:18 07/05/24 09:20 Temperature 100.0 F H 99.9 F H Pulse Rate 76 72 Respiratory Rate 18 18 Blood Pressure 114/62 Pulse Oximetry 99 100 Oxygen Delivery Method 07/05/24 09:20 07/05/24 09:22 07/05/24 09:22 Temperature 99.9 F H Pulse Rate 73 Respiratory Rate 18 Blood Pressure 115/62 117/62 Pulse Oximetry 100 Oxygen Delivery Method 07/05/24 09:24 07/05/24 09:24 07/05/24 09:25 Temperature 99.9 F H 99.9 F H Pulse Rate 72 73 Respiratory Rate 18 18 Blood Pressure 117/61 Pulse Oximetry 100 100 Oxygen Delivery Method 07/05/24 09:26 07/05/24 09:26 07/05/24 09:28 Temperature 99.9 F H 99.9 F H Pulse Rate 72 73 Respiratory Rate 18 18 Blood Pressure 120/62 Pulse Oximetry 100 100 Oxygen Delivery Method 07/05/24 09:28 07/05/24 09:30 07/05/24 09:30 Temperature 99.9 F H Pulse Rate 71 Respiratory Rate 18 Blood Pressure 112/57 L 95/54 L Pulse Oximetry 100 Oxygen Delivery Method 07/05/24 09:35 07/05/24 09:35 07/05/24 09:36 Temperature 99.9 F H 99.9 F H Pulse Rate 67 65 Respiratory Rate 18 18 Blood Pressure 75/45 L Pulse Oximetry 100 100 Oxygen Delivery Method 07/05/24 09:36 07/05/24 09:40 07/05/24 09:40 Temperature 99.9 F H Pulse Rate 69 Respiratory Rate 18 Blood Pressure 73/44 L 100/58 L Pulse Oximetry 100 Oxygen Delivery Method 07/05/24 09:45 07/05/24 09:45 07/05/24 09:50 Temperature 99.7 F H 99.5 F Pulse Rate 72 73 Respiratory Rate 18 18 Blood Pressure 117/62 Pulse Oximetry 100 100 Oxygen Delivery Method 07/05/24 09:50 07/05/24 09:55 07/05/24 09:55 Temperature 99.5 F Pulse Rate 77 Respiratory Rate 18 Blood Pressure 123/66 127/71 Pulse Oximetry 100 Oxygen Delivery Method 07/05/24 10:00 07/05/24 10:00 07/05/24 10:05 Temperature 99.3 F Pulse Rate 72 Respiratory Rate 18 Blood Pressure 124/68 132/68 Pulse Oximetry 100 Oxygen Delivery Method 07/05/24 10:05 07/05/24 10:10 07/05/24 10:10 Temperature 99.3 F 99.1 F Pulse Rate 72 73 Respiratory Rate 18 18 Blood Pressure 119/59 L Pulse Oximetry 100 100 Oxygen Delivery Method 07/05/24 10:15 07/05/24 10:15 07/05/24 10:20 Temperature 99.1 F 99.1 F Pulse Rate 71 69 Respiratory Rate 18 18 Blood Pressure 96/54 L Pulse Oximetry 100 100 Oxygen Delivery Method 07/05/24 10:20 07/05/24 10:25 07/05/24 10:25 Temperature 99.1 F Pulse Rate 68 Respiratory Rate 18 Blood Pressure 93/52 L 85/51 L Pulse Oximetry 100 Oxygen Delivery Method 07/05/24 10:30 07/05/24 10:30 07/05/24 10:35 Temperature 99.1 F 99.3 F Pulse Rate 68 67 Respiratory Rate 18 18 Blood Pressure 81/51 L Pulse Oximetry 100 100 Oxygen Delivery Method 07/05/24 10:35 07/05/24 10:40 07/05/24 10:40 Temperature 99.3 F Pulse Rate 68 Respiratory Rate 18 Blood Pressure 78/49 L 85/50 L Pulse Oximetry 100 Oxygen Delivery Method 07/05/24 10:45 07/05/24 10:45 07/05/24 10:50 Temperature 99.3 F 99.3 F Pulse Rate 68 65 Respiratory Rate 18 18 Blood Pressure 87/54 L Pulse Oximetry 100 100 Oxygen Delivery Method 07/05/24 10:50 07/05/24 10:51 07/05/24 10:51 Temperature 99.3 F Pulse Rate 66 Respiratory Rate 18 Blood Pressure 84/50 L 87/52 L Pulse Oximetry 100 Oxygen Delivery Method 07/05/24 10:55 07/05/24 10:55 07/05/24 11:00 Temperature 99.3 F 99.5 F Pulse Rate 67 67 Respiratory Rate 18 18 Blood Pressure 88/51 L Pulse Oximetry 100 100 Oxygen Delivery Method 07/05/24 11:00 07/05/24 11:05 07/05/24 11:05 Temperature 99.5 F Pulse Rate 66 Respiratory Rate 18 Blood Pressure 89/51 L 90/52 L Pulse Oximetry 100 Oxygen Delivery Method 07/05/24 11:10 07/05/24 11:10 07/05/24 11:15 Temperature 99.5 F 99.5 F Pulse Rate 67 67 Respiratory Rate 18 18 Blood Pressure 89/52 L Pulse Oximetry 100 100 Oxygen Delivery Method 07/05/24 11:15 07/05/24 11:20 07/05/24 11:20 Temperature 99.5 F Pulse Rate 67 Respiratory Rate 18 Blood Pressure 91/52 L 94/54 L Pulse Oximetry 100 Oxygen Delivery Method 07/05/24 11:25 07/05/24 11:25 07/05/24 11:30 Temperature 99.5 F 99.7 F H Pulse Rate 72 71 Respiratory Rate 18 18 Blood Pressure 93/56 L Pulse Oximetry 100 100 Oxygen Delivery Method 07/05/24 11:30 07/05/24 11:35 07/05/24 11:35 Temperature 99.7 F H Pulse Rate 70 Respiratory Rate 18 Blood Pressure 100/56 L 107/55 L Pulse Oximetry 100 Oxygen Delivery Method 07/05/24 11:41 07/05/24 11:41 07/05/24 11:45 Temperature 99.7 F H 99.7 F H Pulse Rate 72 68 Respiratory Rate 18 18 Blood Pressure 123/63 Pulse Oximetry 100 100 Oxygen Delivery Method 07/05/24 11:45 07/05/24 11:50 07/05/24 11:50 Temperature 99.7 F H Pulse Rate 71 Respiratory Rate 18 Blood Pressure 118/63 113/61 Pulse Oximetry 100 Oxygen Delivery Method 07/05/24 11:55 07/05/24 11:55 07/05/24 12:00 Temperature 99.7 F H 99.7 F H Pulse Rate 69 70 Respiratory Rate 18 18 Blood Pressure 108/60 Pulse Oximetry 100 100 Oxygen Delivery Method 07/05/24 12:00 07/05/24 12:05 07/05/24 12:05 Temperature 99.7 F H Pulse Rate 69 Respiratory Rate 18 Blood Pressure 107/62 105/62 Pulse Oximetry 100 Oxygen Delivery Method 07/05/24 12:10 07/05/24 12:10 07/05/24 12:15 Temperature Pulse Rate 71 Respiratory Rate 18 Blood Pressure 108/64 106/59 L Pulse Oximetry 100 Oxygen Delivery Method 07/05/24 12:15 07/05/24 12:20 07/05/24 12:20 Temperature Pulse Rate 70 71 Respiratory Rate 18 18 Blood Pressure 111/60 Pulse Oximetry 100 100 Oxygen Delivery Method 07/05/24 12:25 07/05/24 12:25 07/05/24 12:30 Temperature 99.7 F H Pulse Rate 71 71 Respiratory Rate 18 18 Blood Pressure 108/64 Pulse Oximetry 100 100 Oxygen Delivery Method 07/05/24 12:30 07/05/24 12:35 07/05/24 12:35 Temperature Pulse Rate 71 Respiratory Rate 18 Blood Pressure 109/66 114/67 Pulse Oximetry 100 Oxygen Delivery Method 07/05/24 12:40 07/05/24 12:40 07/05/24 12:45 Temperature Pulse Rate 70 Respiratory Rate 14 Blood Pressure 110/65 115/64 Pulse Oximetry 100 Oxygen Delivery Method 07/05/24 12:45 07/05/24 12:50 07/05/24 12:50 Temperature Pulse Rate 70 69 Respiratory Rate 17 18 Blood Pressure 114/63 Pulse Oximetry 100 100 Oxygen Delivery Method 07/05/24 12:55 07/05/24 12:55 07/05/24 13:00 Temperature 99.7 F H Pulse Rate 71 71 Respiratory Rate 15 18 Blood Pressure 115/66 Pulse Oximetry 100 100 Oxygen Delivery Method 07/05/24 13:00 07/05/24 13:22 07/05/24 13:22 Temperature 99.5 F Pulse Rate 163 H Respiratory Rate 28 H Blood Pressure 114/63 137/114 H Pulse Oximetry 100 Oxygen Delivery Method 07/05/24 13:25 07/05/24 13:25 07/05/24 13:26 Temperature 99.5 F Pulse Rate 157 H 147 H Respiratory Rate 36 H 29 H Blood Pressure 144/108 H Pulse Oximetry 100 Oxygen Delivery Method 07/05/24 13:26 07/05/24 13:28 07/05/24 13:28 Temperature Pulse Rate 129 H Respiratory Rate 23 Blood Pressure 154/111 H 169/72 H Pulse Oximetry 100 Oxygen Delivery Method 07/05/24 13:30 07/05/24 13:30 07/05/24 13:35 Temperature 99.7 F H Pulse Rate 110 H 95 H Respiratory Rate 19 18 Blood Pressure 147/65 H Pulse Oximetry 100 97 Oxygen Delivery Method 07/05/24 13:35 07/05/24 13:40 07/05/24 13:40 Temperature 99.5 F Pulse Rate 92 H Respiratory Rate 18 Blood Pressure 121/58 L Pulse Oximetry 96 97 Oxygen Delivery Method 07/05/24 13:40 07/05/24 13:45 07/05/24 13:45 Temperature 99.5 F Pulse Rate 90 Respiratory Rate 18 Blood Pressure 119/58 L 118/58 L Pulse Oximetry 97 Oxygen Delivery Method 07/05/24 13:50 07/05/24 13:50 07/05/24 13:55 Temperature 99.3 F 99.3 F Pulse Rate 90 88 Respiratory Rate 18 18 Blood Pressure 126/58 L Pulse Oximetry 98 98 Oxygen Delivery Method 07/05/24 13:55 07/05/24 14:00 07/05/24 14:00 Temperature 99.3 F Pulse Rate 87 Respiratory Rate 18 Blood Pressure 128/59 L 125/58 L Pulse Oximetry 98 Oxygen Delivery Method 07/05/24 14:05 07/05/24 14:05 07/05/24 14:10 Temperature 99.3 F 99.1 F Pulse Rate 86 83 Respiratory Rate 18 18 Blood Pressure 123/57 L Pulse Oximetry 98 99 Oxygen Delivery Method 07/05/24 14:10 07/05/24 14:15 07/05/24 14:15 Temperature 99.1 F Pulse Rate 84 Respiratory Rate 18 Blood Pressure 120/60 126/55 L Pulse Oximetry 99 Oxygen Delivery Method 07/05/24 14:20 07/05/24 14:20 07/05/24 14:25 Temperature Pulse Rate 82 80 Respiratory Rate 18 18 Blood Pressure 121/59 L Pulse Oximetry 98 99 Oxygen Delivery Method 07/05/24 14:25 07/05/24 14:30 07/05/24 14:30 Temperature Pulse Rate Respiratory Rate 22 Blood Pressure 124/60 167/76 H Pulse Oximetry 99 Oxygen Delivery Method 07/05/24 14:35 07/05/24 14:35 07/05/24 14:40 Temperature 99.1 F Pulse Rate 79 Respiratory Rate 19 Blood Pressure 156/63 H 142/63 H Pulse Oximetry 100 Oxygen Delivery Method 07/05/24 14:55 07/05/24 14:55 07/05/24 15:00 Temperature 99.1 F Pulse Rate 71 72 Respiratory Rate 26 H Blood Pressure 141/65 H Pulse Oximetry 100 100 Oxygen Delivery Method 07/05/24 15:00 07/05/24 15:30 07/05/24 15:30 Temperature 99.1 F Pulse Rate 67 Respiratory Rate 16 Blood Pressure 138/64 137/65 Pulse Oximetry 100 Oxygen Delivery Method 07/05/24 15:53 Temperature Pulse Rate Respiratory Rate Blood Pressure Pulse Oximetry Oxygen Delivery Method Mechanical Ventilation Fraction of Inspired Oxygen 60 Oxygen Delivery Method Mechanical Ventilation Objective Labs 07/05/24 06:39 07/05/24 06:39 Labs: Laboratory Results - last 24 hr 07/05/24 07/05/24 07/05/24 02:50 03:00 03:40 WBC 18.6 H RBC 4.17 Hgb 13.9 Hct 40.3 MCV 96.8 MCH 33.4 MCHC 34.5 RDW 14.0 Plt Count 349 Neut % (Auto) 88.7 H Lymph % (Auto) 8.6 L [place] % (Auto) 1.1 L Eos % (Auto) 0.7 L Baso % (Auto) 0.9 Neut # (Auto) 12058 H Lymph # (Auto) 1600 [place] # (Auto) 200 Eos # (Auto) 100 Baso # (Auto) 200 H ESR 57 H PT 11.6 INR 1.0 ABG Sample Site ABG pH ABG pCO2 ABG pO2 ABG HCO3 ABG Total CO2 ABG O2 Saturation ABG Base Excess Jeremi Test Respiration Rate O2 Delivery Device Mode of Support FiO2 % Tidal Volume PEEP or CPAP Sodium 140 Potassium 3.1 L Chloride 103 Carbon Dioxide 18 L BUN 18 H Creatinine 0.82 Estimated GFR > 60 BUN/Creatinine Ratio 22.0 Glucose 304 H Lactate 5.3 H* Calcium 10.2 Magnesium 1.8 Total Bilirubin 0.9 AST 38 H ALT 78 H Alkaline Phosphatase 101 Ammonia < 9 L Total Creatine Kinase 69 Troponin I 0.053 H C-Reactive Protein < 0.5 Total Protein 8.8 H Albumin 5.0 Globulin 3.8 Albumin/Globulin Ratio 1.3 Procalcitonin 0.052 Urine Color Yellow Urine Appearance Slightly cloudy Urine pH 7.0 Ur Specific [place] 1.020 Urine Protein 3+ H Urine Glucose (UA) 2+ H Urine Ketones Negative Urine Occult Blood 2+ H Urine Nitrate Positive H Urine Bilirubin Negative Urine Urobilinogen 0.2 Ur Leukocyte Esterase Negative Urine RBC 1-5/hpf Urine WBC 0-1/hpf Ur Squamous Epith Cells 5-10 /hpf H Urine Bacteria Many (>30) H Hyaline Casts 5-10/lpf Ur Culture Indicated? Specimen cultured Vol Urine Centrifuged 10ml (spun) CSF Tube Number CSF Volume CSF Appearance CSF Color CSF WBC CSF RBC CSF Mononuclear WBCs CSF Polynuclear WBCs CSF Glucose CSF Total Protein CSF C.neoform/gat PCR CSF CMV DNA (PCR) CSF Enterovirus (PCR) CSF E. coli (PCR) CSF H. influenzae (PCR) CSF HSV I (PCR) CSF HSV II (PCR) CSF HHV 6 (PCR) CSF L.monocytogenes PCR CSF N. meningitidis PCR CSF Parechovirus (PCR) CSF S. agalactiae (PCR) CSF S. pneumoniae (PCR) CSF VZV (PCR) Nasal Screen MRSA (PCR) U Opiates 300ng/mL cut Negative Ur Oxycodone Screen Negative Urine Methadone Screen Negative Ur Barbiturates Screen Negative U Tricyclic Antidepress Negative Ur Phencyclidine Scrn Negative Ur Amphetamines Screen Negative U Methamphetamines Scrn Negative Ur MDMA Scrn (Ecstasy) Negative U Benzodiazepines Scrn Negative Urine Cocaine Screen Negative U Marijuana (THC) Screen Positive H Urine Specific [place] Ur Creatinine Chlamy pneumoniae PCR Not detected Adenovirus (PCR) Not detected B.parapertussis DNA PCR Not detected Coronavirus OC43 (PCR) Not detected Coronavirus HKU1 (PCR) Not detected Coronavirus 229E (PCR) Not detected SARS-CoV-2 (PCR) Detected H Coronavirus NL63 (PCR) Not detected Human Metapneumovir PCR Not detected Influenza Type A (PCR) Not detected Influenza Type B (PCR) Not detected M. pneumoniae (PCR) Not detected Parainfluenza 1 (PCR) Not detected Parainfluenza 2 (PCR) Not detected Parainfluenza 3 (PCR) Not detected Parainfluenza 4 (PCR) Not detected RSV (PCR) Not detected Entero/Rhino (PCR) Not detected Blood Type A Positive Antibody Screen Negative 07/05/24 07/05/24 07/05/24 03:40 03:44 04:30 WBC RBC Hgb Hct MCV MCH MCHC RDW Plt Count Neut % (Auto) Lymph % (Auto) [place] % (Auto) Eos % (Auto) Baso % (Auto) Neut # (Auto) Lymph # (Auto) [place] # (Auto) Eos # (Auto) Baso # (Auto) ESR PT INR ABG Sample Site Not Reportable ABG pH 7.40 ABG pCO2 34.8 L ABG pO2 182 H ABG HCO3 21 L ABG Total CO2 21 L ABG O2 Saturation 100 ABG Base Excess -2.8 L Jeremi Test Not Reportable Respiration Rate 18 O2 Delivery Device Adult ventilator Mode of Support Assist cont ventilat FiO2 % 60.0 % Tidal Volume PEEP or CPAP 5 Sodium Potassium Chloride Carbon Dioxide BUN Creatinine Estimated GFR BUN/Creatinine Ratio Glucose Lactate Calcium Magnesium Total Bilirubin AST ALT Alkaline Phosphatase Ammonia Total Creatine Kinase Troponin I C-Reactive Protein Total Protein Albumin Globulin Albumin/Globulin Ratio Procalcitonin Urine Color Urine Appearance Urine pH Normal Ur Specific [place] Urine Protein Urine Glucose (UA) Urine Ketones Urine Occult Blood Urine Nitrate Urine Bilirubin Urine Urobilinogen Ur Leukocyte Esterase Urine RBC Urine WBC Ur Squamous Epith Cells Urine Bacteria Hyaline Casts Ur Culture Indicated? Vol Urine Centrifuged CSF Tube Number 3 CSF Volume 1.5 ml CSF Appearance Clear CSF Color Colorless CSF WBC 0 CSF RBC 1 CSF Mononuclear WBCs Not Reportable CSF Polynuclear WBCs Not Reportable CSF Glucose 102 H CSF Total Protein 131 H CSF C.neoform/gat PCR Not detected CSF CMV DNA (PCR) Not detected CSF Enterovirus (PCR) Not detected CSF E. coli (PCR) Not detected CSF H. influenzae (PCR) Not detected CSF HSV I (PCR) Not detected CSF HSV II (PCR) Not detected CSF HHV 6 (PCR) Not detected CSF L.monocytogenes PCR Not detected CSF N. meningitidis PCR Not detected CSF Parechovirus (PCR) Not detected CSF S. agalactiae (PCR) Not detected CSF S. pneumoniae (PCR) Not detected CSF VZV (PCR) Not detected Nasal Screen MRSA (PCR) U Opiates 300ng/mL cut Ur Oxycodone Screen Urine Methadone Screen Ur Barbiturates Screen U Tricyclic Antidepress Ur Phencyclidine Scrn Ur Amphetamines Screen U Methamphetamines Scrn Ur MDMA Scrn (Ecstasy) U Benzodiazepines Scrn Urine Cocaine Screen U Marijuana (THC) Screen Urine Specific [place] Normal Ur Creatinine Normal Chlamy pneumoniae PCR Adenovirus (PCR) B.parapertussis DNA PCR Coronavirus OC43 (PCR) Coronavirus HKU1 (PCR) Coronavirus 229E (PCR) SARS-CoV-2 (PCR) Coronavirus NL63 (PCR) Human Metapneumovir PCR Influenza Type A (PCR) Influenza Type B (PCR) M. pneumoniae (PCR) Parainfluenza 1 (PCR) Parainfluenza 2 (PCR) Parainfluenza 3 (PCR) Parainfluenza 4 (PCR) RSV (PCR) Entero/Rhino (PCR) Blood Type Antibody Screen 07/05/24 07/05/24 07/05/24 05:00 06:39 07:29 WBC 18.5 H RBC 3.57 L Hgb 12.0 Hct 34.4 L MCV 96.3 MCH 33.5 MCHC 34.8 RDW 13.9 Plt Count 325 Neut % (Auto) 85.7 H Lymph % (Auto) 8.2 L [place] % (Auto) 5.8 Eos % (Auto) 0.0 L Baso % (Auto) 0.3 Neut # (Auto) 77677 H Lymph # (Auto) 1500 [place] # (Auto) 1100 H Eos # (Auto) 0 Baso # (Auto) 100 ESR PT INR ABG Sample Site ABG pH ABG pCO2 ABG pO2 ABG HCO3 ABG Total CO2 ABG O2 Saturation ABG Base Excess Jeremi Test Respiration Rate O2 Delivery Device Mode of Support FiO2 % Tidal Volume PEEP or CPAP Sodium 139 Potassium 3.4 Chloride 106 Carbon Dioxide 23 BUN 20 H Creatinine 0.90 Estimated GFR > 60 BUN/Creatinine Ratio 22.2 H Glucose 199 H D Lactate 4.0 H 2.4 H Calcium 8.7 Magnesium Total Bilirubin 0.5 AST 33 ALT 23 Alkaline Phosphatase 85 Ammonia Total Creatine Kinase Troponin I C-Reactive Protein Total Protein 7.2 Albumin 4.2 Globulin 3.0 Albumin/Globulin Ratio 1.4 Procalcitonin Urine Color Urine Appearance Urine pH Ur Specific [place] Urine Protein Urine Glucose (UA) Urine Ketones Urine Occult Blood Urine Nitrate Urine Bilirubin Urine Urobilinogen Ur Leukocyte Esterase Urine RBC Urine WBC Ur Squamous Epith Cells Urine Bacteria Hyaline Casts Ur Culture Indicated? Vol Urine Centrifuged CSF Tube Number CSF Volume CSF Appearance CSF Color CSF WBC CSF RBC CSF Mononuclear WBCs CSF Polynuclear WBCs CSF Glucose CSF Total Protein CSF C.neoform/gat PCR CSF CMV DNA (PCR) CSF Enterovirus (PCR) CSF E. coli (PCR) CSF H. influenzae (PCR) CSF HSV I (PCR) CSF HSV II (PCR) CSF HHV 6 (PCR) CSF L.monocytogenes PCR CSF N. meningitidis PCR CSF Parechovirus (PCR) CSF S. agalactiae (PCR) CSF S. pneumoniae (PCR) CSF VZV (PCR) Nasal Screen MRSA (PCR) U Opiates 300ng/mL cut Ur Oxycodone Screen Urine Methadone Screen Ur Barbiturates Screen U Tricyclic Antidepress Ur Phencyclidine Scrn Ur Amphetamines Screen U Methamphetamines Scrn Ur MDMA Scrn (Ecstasy) U Benzodiazepines Scrn Urine Cocaine Screen U Marijuana (THC) Screen Urine Specific [place] Ur Creatinine Chlamy pneumoniae PCR Adenovirus (PCR) B.parapertussis DNA PCR Coronavirus OC43 (PCR) Coronavirus HKU1 (PCR) Coronavirus 229E (PCR) SARS-CoV-2 (PCR) Coronavirus NL63 (PCR) Human Metapneumovir PCR Influenza Type A (PCR) Influenza Type B (PCR) M. pneumoniae (PCR) Parainfluenza 1 (PCR) Parainfluenza 2 (PCR) Parainfluenza 3 (PCR) Parainfluenza 4 (PCR) RSV (PCR) Entero/Rhino (PCR) Blood Type Antibody Screen 07/05/24 07/05/24 07/05/24 08:27 09:38 15:23 WBC RBC Hgb Hct MCV MCH MCHC RDW Plt Count Neut % (Auto) Lymph % (Auto) [place] % (Auto) Eos % (Auto) Baso % (Auto) Neut # (Auto) Lymph # (Auto) [place] # (Auto) Eos # (Auto) Baso # (Auto) ESR PT INR ABG Sample Site Left radial ABG pH 7.43 ABG pCO2 32.1 L ABG pO2 43 L* ABG HCO3 21 L ABG Total CO2 21 L ABG O2 Saturation 81 L* ABG Base Excess -2.5 L Jeremi Test Yes, passed Respiration Rate 18 O2 Delivery Device Adult ventilator Mode of Support FiO2 % 40 Tidal Volume 500 PEEP or CPAP 5 Sodium Potassium Chloride Carbon Dioxide BUN Creatinine Estimated GFR BUN/Creatinine Ratio Glucose Lactate 1.7 Calcium Magnesium Total Bilirubin AST ALT Alkaline Phosphatase Ammonia Total Creatine Kinase Troponin I C-Reactive Protein Total Protein Albumin Globulin Albumin/Globulin Ratio Procalcitonin Urine Color Urine Appearance Urine pH Ur Specific [place] Urine Protein Urine Glucose (UA) Urine Ketones Urine Occult Blood Urine Nitrate Urine Bilirubin Urine Urobilinogen Ur Leukocyte Esterase Urine RBC Urine WBC Ur Squamous Epith Cells Urine Bacteria Hyaline Casts Ur Culture Indicated? Vol Urine Centrifuged CSF Tube Number CSF Volume CSF Appearance CSF Color CSF WBC CSF RBC CSF Mononuclear WBCs CSF Polynuclear WBCs CSF Glucose CSF Total Protein CSF C.neoform/gat PCR CSF CMV DNA (PCR) CSF Enterovirus (PCR) CSF E. coli (PCR) CSF H. influenzae (PCR) CSF HSV I (PCR) CSF HSV II (PCR) CSF HHV 6 (PCR) CSF L.monocytogenes PCR CSF N. meningitidis PCR CSF Parechovirus (PCR) CSF S. agalactiae (PCR) CSF S. pneumoniae (PCR) CSF VZV (PCR) Nasal Screen MRSA (PCR) Not detected U Opiates 300ng/mL cut Ur Oxycodone Screen Urine Methadone Screen Ur Barbiturates Screen U Tricyclic Antidepress Ur Phencyclidine Scrn Ur Amphetamines Screen U Methamphetamines Scrn Ur MDMA Scrn (Ecstasy) U Benzodiazepines Scrn Urine Cocaine Screen U Marijuana (THC) Screen Urine Specific [place] Ur Creatinine Chlamy pneumoniae PCR Adenovirus (PCR) B.parapertussis DNA PCR Coronavirus OC43 (PCR) Coronavirus HKU1 (PCR) Coronavirus 229E (PCR) SARS-CoV-2 (PCR) Coronavirus NL63 (PCR) Human Metapneumovir PCR Influenza Type A (PCR) Influenza Type B (PCR) M. pneumoniae (PCR) Parainfluenza 1 (PCR) Parainfluenza 2 (PCR) Parainfluenza 3 (PCR) Parainfluenza 4 (PCR) RSV (PCR) Entero/Rhino (PCR) Blood Type Antibody Screen [facility] Medical History (Updated 07/05/24 @ 09:23 by Lety Gifford MD) Former smoker GERD without esophagitis Mixed hyperlipidemia Essential hypertension PTSD (post-traumatic stress disorder) Generalized anxiety disorder Depression Chronic pain syndrome Degenerative disc disease Spinal stenosis Surgical History (Updated 07/05/24 @ 07:12 by Jose Longoria MD) Status post hip hemiarthroplasty (~01/2024) Status post cholecystectomy Status post cervical spinal fusion Family History Mother Hypertension Cancer Father Stroke Social History marital status: household members: spouse occupational status: employed Smoking Status: Former smoker alcohol intake: never substance use type: does not use Assessment & Plan Time-Based Coding :: [TOTAL MINUTES] spent with patient and on the chart (including review of chart, obtaining history, exam, reviewing outside data, placing orders, documenting exam and treatment plan, and counseling patient) on [DATE]. Quality VTE Deep Vein Thrombosis/Pulmonary Embolism Present on Admission: No
[2024-07-05] MEDS: propofoL 1,000 MG/100 ML VIAL 17.661 MG IV ×2 (17:25→23:32)
--- NOTE | 2024-07-05 18:34 | PM.CN.EICU ---
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 By report patient is a 69 year old female who presents with acute encephalopathy. She was recently diagnosed with COVID-19. On presentation, CTH negative. CTA PE study showed bibasilar atelectasis vs infiltrate. She was emergently intubated. REceived CAP coverage. Underwent LP showing elevated protein. Admitted to ICU for further management. At the time of my assessment, no tele video conference was performed due to malfunction camera device. Currently sedated wiht propofol, fentanyl, and precedex. [facility] Medical History (Updated 07/05/24 @ 09:23 by Lety Gifford MD) Former smoker GERD without esophagitis Mixed hyperlipidemia Essential hypertension PTSD (post-traumatic stress disorder) Generalized anxiety disorder Depression Chronic pain syndrome Degenerative disc disease Spinal stenosis Surgical History (Updated 07/05/24 @ 07:12 by Jose Longoria MD) Status post hip hemiarthroplasty (~01/2024) Status post cholecystectomy Status post cervical spinal fusion Family History Mother Hypertension Cancer Father Stroke Social History marital status: household members: spouse occupational status: employed Smoking Status: Former smoker alcohol intake: never substance use type: does not use Current Medications Current Medications Medications: Home Medications CHOLECALCIFEROL (VITAMIN D3) (Vitamin D3) 5,000 iu PO Q DAY ##0 08/25/10 [History Confirmed 07/05/24] VITAMIN C - (VITAMIN C) 1,000 mg PO Q DAY ##0 08/25/10 [History Confirmed 07/05/24] Vitamin E (Alpha-Tocopherol) 800 unit PO Q DAY ##0 08/25/10 [History Confirmed 07/05/24] COENZYME Q10/VITAMIN E (CO-Q-10 200mg) 200 mg PO QDAY ##0 03/13/13 [History Confirmed 07/05/24] [FISH OIL] 1,000 mg PO DAILY ##0 04/15/13 [History Confirmed 07/05/24] [GLUCOSAMINE] 1,500 mg PO Q DAY ##0 03/13/13 [History Confirmed 07/05/24] buprenorphine 8 mg-naloxone 2 mg sublingual film (Suboxone) 8 film sublingual DAILY ##0 03/13/13 [History Confirmed 07/05/24] gabapentin 600 mg tablet (Neurontin) 600 mg PO TID ##0 03/13/13 [History Confirmed 07/05/24] nadolol 20 mg tablet (Corgard) 40 mg PO QDAY ##0 03/13/13 [History Confirmed 07/05/24] Miralax 1 tbsp PO DAILY 02/11/24 [History Confirmed 07/05/24] vitamin B complex 1 tab PO DAILY 02/11/24 [History Confirmed 07/05/24] cyclobenzaprine 10 mg tablet 10 mg PO Q8H PRN muscle spasm 07/05/24 [History Confirmed 07/05/24] venlafaxine 150 mg capsule,extended release 24 hr 150 mg PO DAILY 07/05/24 [History Confirmed 07/05/24] venlafaxine 75 mg capsule,extended release 24 hr 75 mg PO DAILY 07/05/24 [History Confirmed 07/05/24] Visit Medications (administered) Generic Name Dose Route Start Last Admin Trade Name Jeanette PRN Reason Stop Dose Admin Enoxaparin Sodium 40 mg 07/05/24 06:00 07/05/24 17:51 Enoxaparin 40 Mg/0.4 Ml Syringe SUBCUT 40 mg Q12H KATTY Administration Propofol 1,000 mg in 100 mls @ 25.23 mls/hr 07/05/24 03:00 07/05/24 17:25 Propofol IV 35 mcg/kg/min TITRATE KATTY 17.661 mls/hr Administration Protocol 50 MCG/KG/MIN Fentanyl 1,000 mcg/ Dextrose 250 mls @ 14.718 mls/hr 07/05/24 04:00 07/05/24 16:14 IV 2 mcg/kg/hr TITRATE KATTY 42.05 mls/hr Titration Protocol 0.7 MCG/KG/HR Dextrose/Sodium Chloride 1,000 mls @ 100 mls/hr 07/05/24 06:00 07/05/24 15:12 Dextrose 5%-0.45% Ns IV 20 mls/hr CONT KATTY Infusion dexmedeTOMIDine in 0.9 % NaCL 400 mcg in 100 mls @ 4.205 mls/hr 07/05/24 06:45 07/05/24 17:25 Precedex IV 1 mcg/kg/hr TITRATE KATTY 21.025 mls/hr Administration Protocol 0.2 MCG/KG/HR NOREPINEPHRINE BITARTRATE/D5W 4 mg in 250 mls @ 31.538 mls/hr 07/05/24 08:10 07/05/24 18:01 Levophed IV 0.02 mcg/kg/min TITRATE KATTY 7.5 mls/hr Titration Protocol 0.1 MCG/KG/MIN Midazolam HCl 50 mg/ Dextrose 50 mls @ 1.682 mls/hr 07/05/24 15:44 07/05/24 16:11 IV 0.06 mg/kg/hr TITRATE PRN 5.046 mls/hr Agitation Administration Protocol 0.02 MG/KG/HR Pantoprazole Sodium 40 mg 07/05/24 09:00 07/05/24 09:27 Pantoprazole 40 Mg Vial IV 40 mg DAILY KATTY Administration Exam Vital Signs (past 8 hours): - 07/05/24 10:35 07/05/24 10:35 07/05/24 10:40 Temperature 99.3 F 99.3 F Pulse Rate 67 68 Respiratory Rate 18 18 Blood Pressure 78/49 L Pulse Oximetry 100 100 Oxygen Delivery Method 07/05/24 10:40 07/05/24 10:45 07/05/24 10:45 Temperature 99.3 F Pulse Rate 68 Respiratory Rate 18 Blood Pressure 85/50 L 87/54 L Pulse Oximetry 100 Oxygen Delivery Method 07/05/24 10:50 07/05/24 10:50 07/05/24 10:51 Temperature 99.3 F 99.3 F Pulse Rate 65 66 Respiratory Rate 18 18 Blood Pressure 84/50 L Pulse Oximetry 100 100 Oxygen Delivery Method 07/05/24 10:51 07/05/24 10:55 07/05/24 10:55 Temperature 99.3 F Pulse Rate 67 Respiratory Rate 18 Blood Pressure 87/52 L 88/51 L Pulse Oximetry 100 Oxygen Delivery Method 07/05/24 11:00 07/05/24 11:00 07/05/24 11:05 Temperature 99.5 F 99.5 F Pulse Rate 67 66 Respiratory Rate 18 18 Blood Pressure 89/51 L Pulse Oximetry 100 100 Oxygen Delivery Method 07/05/24 11:05 07/05/24 11:10 07/05/24 11:10 Temperature 99.5 F Pulse Rate 67 Respiratory Rate 18 Blood Pressure 90/52 L 89/52 L Pulse Oximetry 100 Oxygen Delivery Method 07/05/24 11:15 07/05/24 11:15 07/05/24 11:20 Temperature 99.5 F Pulse Rate 67 Respiratory Rate 18 Blood Pressure 91/52 L 94/54 L Pulse Oximetry 100 Oxygen Delivery Method 07/05/24 11:20 07/05/24 11:25 07/05/24 11:25 Temperature 99.5 F 99.5 F Pulse Rate 67 72 Respiratory Rate 18 18 Blood Pressure 93/56 L Pulse Oximetry 100 100 Oxygen Delivery Method 07/05/24 11:30 07/05/24 11:30 07/05/24 11:35 Temperature 99.7 F H 99.7 F H Pulse Rate 71 70 Respiratory Rate 18 18 Blood Pressure 100/56 L Pulse Oximetry 100 100 Oxygen Delivery Method 07/05/24 11:35 07/05/24 11:41 07/05/24 11:41 Temperature 99.7 F H Pulse Rate 72 Respiratory Rate 18 Blood Pressure 107/55 L 123/63 Pulse Oximetry 100 Oxygen Delivery Method 07/05/24 11:45 07/05/24 11:45 07/05/24 11:50 Temperature 99.7 F H 99.7 F H Pulse Rate 68 71 Respiratory Rate 18 18 Blood Pressure 118/63 Pulse Oximetry 100 100 Oxygen Delivery Method 07/05/24 11:50 07/05/24 11:55 07/05/24 11:55 Temperature 99.7 F H Pulse Rate 69 Respiratory Rate 18 Blood Pressure 113/61 108/60 Pulse Oximetry 100 Oxygen Delivery Method 07/05/24 12:00 07/05/24 12:00 07/05/24 12:05 Temperature 99.7 F H 99.7 F H Pulse Rate 70 69 Respiratory Rate 18 18 Blood Pressure 107/62 Pulse Oximetry 100 100 Oxygen Delivery Method 07/05/24 12:05 07/05/24 12:10 07/05/24 12:10 Temperature Pulse Rate 71 Respiratory Rate 18 Blood Pressure 105/62 108/64 Pulse Oximetry 100 Oxygen Delivery Method 07/05/24 12:15 07/05/24 12:15 07/05/24 12:20 Temperature Pulse Rate 70 71 Respiratory Rate 18 18 Blood Pressure 106/59 L Pulse Oximetry 100 100 Oxygen Delivery Method 07/05/24 12:20 07/05/24 12:25 07/05/24 12:25 Temperature Pulse Rate 71 Respiratory Rate 18 Blood Pressure 111/60 108/64 Pulse Oximetry 100 Oxygen Delivery Method 07/05/24 12:30 07/05/24 12:30 07/05/24 12:35 Temperature 99.7 F H Pulse Rate 71 Respiratory Rate 18 Blood Pressure 109/66 114/67 Pulse Oximetry 100 Oxygen Delivery Method 07/05/24 12:35 07/05/24 12:40 07/05/24 12:40 Temperature Pulse Rate 71 70 Respiratory Rate 18 14 Blood Pressure 110/65 Pulse Oximetry 100 100 Oxygen Delivery Method 07/05/24 12:45 07/05/24 12:45 07/05/24 12:50 Temperature Pulse Rate 70 69 Respiratory Rate 17 18 Blood Pressure 115/64 Pulse Oximetry 100 100 Oxygen Delivery Method 07/05/24 12:50 07/05/24 12:55 07/05/24 12:55 Temperature Pulse Rate 71 Respiratory Rate 15 Blood Pressure 114/63 115/66 Pulse Oximetry 100 Oxygen Delivery Method 07/05/24 13:00 07/05/24 13:00 07/05/24 13:22 Temperature 99.7 F H 99.5 F Pulse Rate 71 163 H Respiratory Rate 18 28 H Blood Pressure 114/63 Pulse Oximetry 100 100 Oxygen Delivery Method 07/05/24 13:22 07/05/24 13:25 07/05/24 13:25 Temperature 99.5 F Pulse Rate 157 H Respiratory Rate 36 H Blood Pressure 137/114 H 144/108 H Pulse Oximetry 100 Oxygen Delivery Method 07/05/24 13:26 07/05/24 13:26 07/05/24 13:28 Temperature Pulse Rate 147 H Respiratory Rate 29 H Blood Pressure 154/111 H 169/72 H Pulse Oximetry Oxygen Delivery Method 07/05/24 13:28 07/05/24 13:30 07/05/24 13:30 Temperature Pulse Rate 129 H 110 H Respiratory Rate 23 19 Blood Pressure 147/65 H Pulse Oximetry 100 100 Oxygen Delivery Method 07/05/24 13:35 07/05/24 13:35 07/05/24 13:40 Temperature 99.7 F H Pulse Rate 95 H Respiratory Rate 18 Blood Pressure 121/58 L Pulse Oximetry 97 96 Oxygen Delivery Method 07/05/24 13:40 07/05/24 13:40 07/05/24 13:45 Temperature 99.5 F 99.5 F Pulse Rate 92 H 90 Respiratory Rate 18 18 Blood Pressure 119/58 L Pulse Oximetry 97 97 Oxygen Delivery Method 07/05/24 13:45 07/05/24 13:50 07/05/24 13:50 Temperature 99.3 F Pulse Rate 90 Respiratory Rate 18 Blood Pressure 118/58 L 126/58 L Pulse Oximetry 98 Oxygen Delivery Method 07/05/24 13:55 07/05/24 13:55 07/05/24 14:00 Temperature 99.3 F Pulse Rate 88 Respiratory Rate 18 Blood Pressure 128/59 L 125/58 L Pulse Oximetry 98 Oxygen Delivery Method 07/05/24 14:00 07/05/24 14:05 07/05/24 14:05 Temperature 99.3 F 99.3 F Pulse Rate 87 86 Respiratory Rate 18 18 Blood Pressure 123/57 L Pulse Oximetry 98 98 Oxygen Delivery Method 07/05/24 14:10 07/05/24 14:10 07/05/24 14:15 Temperature 99.1 F 99.1 F Pulse Rate 83 84 Respiratory Rate 18 18 Blood Pressure 120/60 Pulse Oximetry 99 99 Oxygen Delivery Method 07/05/24 14:15 07/05/24 14:20 07/05/24 14:20 Temperature Pulse Rate 82 Respiratory Rate 18 Blood Pressure 126/55 L 121/59 L Pulse Oximetry 98 Oxygen Delivery Method 07/05/24 14:25 07/05/24 14:25 07/05/24 14:30 Temperature Pulse Rate 80 Respiratory Rate 18 22 Blood Pressure 124/60 Pulse Oximetry 99 99 Oxygen Delivery Method 07/05/24 14:30 07/05/24 14:35 07/05/24 14:35 Temperature 99.1 F Pulse Rate 79 Respiratory Rate 19 Blood Pressure 167/76 H 156/63 H Pulse Oximetry 100 Oxygen Delivery Method 07/05/24 14:40 07/05/24 14:55 07/05/24 14:55 Temperature Pulse Rate 71 Respiratory Rate 26 H Blood Pressure 142/63 H 141/65 H Pulse Oximetry 100 Oxygen Delivery Method 07/05/24 15:00 07/05/24 15:00 07/05/24 15:30 Temperature 99.1 F Pulse Rate 72 Respiratory Rate Blood Pressure 138/64 137/65 Pulse Oximetry 100 Oxygen Delivery Method 07/05/24 15:30 07/05/24 15:53 07/05/24 16:00 Temperature 99.1 F Pulse Rate 67 Respiratory Rate 16 Blood Pressure 141/66 H Pulse Oximetry 100 Oxygen Delivery Method Mechanical Ventilation 07/05/24 16:00 07/05/24 16:30 07/05/24 16:30 Temperature 99.0 F 99.0 F Pulse Rate 66 61 Respiratory Rate 16 16 Blood Pressure 129/62 Pulse Oximetry 100 100 Oxygen Delivery Method 07/05/24 17:00 07/05/24 17:00 07/05/24 17:30 Temperature 99.0 F Pulse Rate 62 Respiratory Rate 16 Blood Pressure 135/63 135/63 Pulse Oximetry 100 Oxygen Delivery Method 07/05/24 17:30 07/05/24 18:00 07/05/24 18:00 Temperature 99.0 F 99.0 F Pulse Rate 60 60 Respiratory Rate 16 16 Blood Pressure 155/70 H Pulse Oximetry 100 100 Oxygen Delivery Method Fraction of Inspired Oxygen 60 Oxygen Delivery Method Mechanical Ventilation Narrative Exam Narrative: Unable to assess Objective Labs 07/05/24 06:39 07/05/24 06:39 Labs: Laboratory Results - last 24 hr 07/05/24 07/05/24 07/05/24 02:50 03:00 03:40 WBC 18.6 H RBC 4.17 Hgb 13.9 Hct 40.3 MCV 96.8 MCH 33.4 MCHC 34.5 RDW 14.0 Plt Count 349 Neut % (Auto) 88.7 H Lymph % (Auto) 8.6 L [place] % (Auto) 1.1 L Eos % (Auto) 0.7 L Baso % (Auto) 0.9 Neut # (Auto) 67936 H Lymph # (Auto) 1600 [place] # (Auto) 200 Eos # (Auto) 100 Baso # (Auto) 200 H ESR 57 H PT 11.6 INR 1.0 ABG Sample Site ABG pH ABG pCO2 ABG pO2 ABG HCO3 ABG Total CO2 ABG O2 Saturation ABG Base Excess Jeremi Test Respiration Rate O2 Delivery Device Mode of Support FiO2 % Tidal Volume PEEP or CPAP Sodium 140 Potassium 3.1 L Chloride 103 Carbon Dioxide 18 L BUN 18 H Creatinine 0.82 Estimated GFR > 60 BUN/Creatinine Ratio 22.0 Glucose 304 H Lactate 5.3 H* Calcium 10.2 Magnesium 1.8 Total Bilirubin 0.9 AST 38 H ALT 78 H Alkaline Phosphatase 101 Ammonia < 9 L Total Creatine Kinase 69 Troponin I 0.053 H C-Reactive Protein < 0.5 Total Protein 8.8 H Albumin 5.0 Globulin 3.8 Albumin/Globulin Ratio 1.3 Procalcitonin 0.052 Urine Color Yellow Urine Appearance Slightly cloudy Urine pH 7.0 Ur Specific [place] 1.020 Urine Protein 3+ H Urine Glucose (UA) 2+ H Urine Ketones Negative Urine Occult Blood 2+ H Urine Nitrate Positive H Urine Bilirubin Negative Urine Urobilinogen 0.2 Ur Leukocyte Esterase Negative Urine RBC 1-5/hpf Urine WBC 0-1/hpf Ur Squamous Epith Cells 5-10 /hpf H Urine Bacteria Many (>30) H Hyaline Casts 5-10/lpf Ur Culture Indicated? Specimen cultured Vol Urine Centrifuged 10ml (spun) CSF Tube Number CSF Volume CSF Appearance CSF Color CSF WBC CSF RBC CSF Mononuclear WBCs CSF Polynuclear WBCs CSF Glucose CSF Total Protein CSF C.neoform/gat PCR CSF CMV DNA (PCR) CSF Enterovirus (PCR) CSF E. coli (PCR) CSF H. influenzae (PCR) CSF HSV I (PCR) CSF HSV II (PCR) CSF HHV 6 (PCR) CSF L.monocytogenes PCR CSF N. meningitidis PCR CSF Parechovirus (PCR) CSF S. agalactiae (PCR) CSF S. pneumoniae (PCR) CSF VZV (PCR) Nasal Screen MRSA (PCR) U Opiates 300ng/mL cut Negative Ur Oxycodone Screen Negative Urine Methadone Screen Negative Ur Barbiturates Screen Negative U Tricyclic Antidepress Negative Ur Phencyclidine Scrn Negative Ur Amphetamines Screen Negative U Methamphetamines Scrn Negative Ur MDMA Scrn (Ecstasy) Negative U Benzodiazepines Scrn Negative Urine Cocaine Screen Negative U Marijuana (THC) Screen Positive H Urine Specific [place] Ur Creatinine Chlamy pneumoniae PCR Not detected Adenovirus (PCR) Not detected B.parapertussis DNA PCR Not detected Coronavirus OC43 (PCR) Not detected Coronavirus HKU1 (PCR) Not detected Coronavirus 229E (PCR) Not detected SARS-CoV-2 (PCR) Detected H Coronavirus NL63 (PCR) Not detected Human Metapneumovir PCR Not detected Influenza Type A (PCR) Not detected Influenza Type B (PCR) Not detected M. pneumoniae (PCR) Not detected Parainfluenza 1 (PCR) Not detected Parainfluenza 2 (PCR) Not detected Parainfluenza 3 (PCR) Not detected Parainfluenza 4 (PCR) Not detected RSV (PCR) Not detected Entero/Rhino (PCR) Not detected Blood Type A Positive Antibody Screen Negative 07/05/24 07/05/24 07/05/24 03:40 03:44 04:30 WBC RBC Hgb Hct MCV MCH MCHC RDW Plt Count Neut % (Auto) Lymph % (Auto) [place] % (Auto) Eos % (Auto) Baso % (Auto) Neut # (Auto) Lymph # (Auto) [place] # (Auto) Eos # (Auto) Baso # (Auto) ESR PT INR ABG Sample Site Not Reportable ABG pH 7.40 ABG pCO2 34.8 L ABG pO2 182 H ABG HCO3 21 L ABG Total CO2 21 L ABG O2 Saturation 100 ABG Base Excess -2.8 L Jeremi Test Not Reportable Respiration Rate 18 O2 Delivery Device Adult ventilator Mode of Support Assist cont ventilat FiO2 % 60.0 % Tidal Volume PEEP or CPAP 5 Sodium Potassium Chloride Carbon Dioxide BUN Creatinine Estimated GFR BUN/Creatinine Ratio Glucose Lactate Calcium Magnesium Total Bilirubin AST ALT Alkaline Phosphatase Ammonia Total Creatine Kinase Troponin I C-Reactive Protein Total Protein Albumin Globulin Albumin/Globulin Ratio Procalcitonin Urine Color Urine Appearance Urine pH Normal Ur Specific [place] Urine Protein Urine Glucose (UA) Urine Ketones Urine Occult Blood Urine Nitrate Urine Bilirubin Urine Urobilinogen Ur Leukocyte Esterase Urine RBC Urine WBC Ur Squamous Epith Cells Urine Bacteria Hyaline Casts Ur Culture Indicated? Vol Urine Centrifuged CSF Tube Number 3 CSF Volume 1.5 ml CSF Appearance Clear CSF Color Colorless CSF WBC 0 CSF RBC 1 CSF Mononuclear WBCs Not Reportable CSF Polynuclear WBCs Not Reportable CSF Glucose 102 H CSF Total Protein 131 H CSF C.neoform/gat PCR Not detected CSF CMV DNA (PCR) Not detected CSF Enterovirus (PCR) Not detected CSF E. coli (PCR) Not detected CSF H. influenzae (PCR) Not detected CSF HSV I (PCR) Not detected CSF HSV II (PCR) Not detected CSF HHV 6 (PCR) Not detected CSF L.monocytogenes PCR Not detected CSF N. meningitidis PCR Not detected CSF Parechovirus (PCR) Not detected CSF S. agalactiae (PCR) Not detected CSF S. pneumoniae (PCR) Not detected CSF VZV (PCR) Not detected Nasal Screen MRSA (PCR) U Opiates 300ng/mL cut Ur Oxycodone Screen Urine Methadone Screen Ur Barbiturates Screen U Tricyclic Antidepress Ur Phencyclidine Scrn Ur Amphetamines Screen U Methamphetamines Scrn Ur MDMA Scrn (Ecstasy) U Benzodiazepines Scrn Urine Cocaine Screen U Marijuana (THC) Screen Urine Specific [place] Normal Ur Creatinine Normal Chlamy pneumoniae PCR Adenovirus (PCR) B.parapertussis DNA PCR Coronavirus OC43 (PCR) Coronavirus HKU1 (PCR) Coronavirus 229E (PCR) SARS-CoV-2 (PCR) Coronavirus NL63 (PCR) Human Metapneumovir PCR Influenza Type A (PCR) Influenza Type B (PCR) M. pneumoniae (PCR) Parainfluenza 1 (PCR) Parainfluenza 2 (PCR) Parainfluenza 3 (PCR) Parainfluenza 4 (PCR) RSV (PCR) Entero/Rhino (PCR) Blood Type Antibody Screen 07/05/24 07/05/24 07/05/24 05:00 06:39 07:29 WBC 18.5 H RBC 3.57 L Hgb 12.0 Hct 34.4 L MCV 96.3 MCH 33.5 MCHC 34.8 RDW 13.9 Plt Count 325 Neut % (Auto) 85.7 H Lymph % (Auto) 8.2 L [place] % (Auto) 5.8 Eos % (Auto) 0.0 L Baso % (Auto) 0.3 Neut # (Auto) 29123 H Lymph # (Auto) 1500 [place] # (Auto) 1100 H Eos # (Auto) 0 Baso # (Auto) 100 ESR PT INR ABG Sample Site ABG pH ABG pCO2 ABG pO2 ABG HCO3 ABG Total CO2 ABG O2 Saturation ABG Base Excess Jeremi Test Respiration Rate O2 Delivery Device Mode of Support FiO2 % Tidal Volume PEEP or CPAP Sodium 139 Potassium 3.4 Chloride 106 Carbon Dioxide 23 BUN 20 H Creatinine 0.90 Estimated GFR > 60 BUN/Creatinine Ratio 22.2 H Glucose 199 H D Lactate 4.0 H 2.4 H Calcium 8.7 Magnesium Total Bilirubin 0.5 AST 33 ALT 23 Alkaline Phosphatase 85 Ammonia Total Creatine Kinase Troponin I C-Reactive Protein Total Protein 7.2 Albumin 4.2 Globulin 3.0 Albumin/Globulin Ratio 1.4 Procalcitonin Urine Color Urine Appearance Urine pH Ur Specific [place] Urine Protein Urine Glucose (UA) Urine Ketones Urine Occult Blood Urine Nitrate Urine Bilirubin Urine Urobilinogen Ur Leukocyte Esterase Urine RBC Urine WBC Ur Squamous Epith Cells Urine Bacteria Hyaline Casts Ur Culture Indicated? Vol Urine Centrifuged CSF Tube Number CSF Volume CSF Appearance CSF Color CSF WBC CSF RBC CSF Mononuclear WBCs CSF Polynuclear WBCs CSF Glucose CSF Total Protein CSF C.neoform/gat PCR CSF CMV DNA (PCR) CSF Enterovirus (PCR) CSF E. coli (PCR) CSF H. influenzae (PCR) CSF HSV I (PCR) CSF HSV II (PCR) CSF HHV 6 (PCR) CSF L.monocytogenes PCR CSF N. meningitidis PCR CSF Parechovirus (PCR) CSF S. agalactiae (PCR) CSF S. pneumoniae (PCR) CSF VZV (PCR) Nasal Screen MRSA (PCR) U Opiates 300ng/mL cut Ur Oxycodone Screen Urine Methadone Screen Ur Barbiturates Screen U Tricyclic Antidepress Ur Phencyclidine Scrn Ur Amphetamines Screen U Methamphetamines Scrn Ur MDMA Scrn (Ecstasy) U Benzodiazepines Scrn Urine Cocaine Screen U Marijuana (THC) Screen Urine Specific [place] Ur Creatinine Chlamy pneumoniae PCR Adenovirus (PCR) B.parapertussis DNA PCR Coronavirus OC43 (PCR) Coronavirus HKU1 (PCR) Coronavirus 229E (PCR) SARS-CoV-2 (PCR) Coronavirus NL63 (PCR) Human Metapneumovir PCR Influenza Type A (PCR) Influenza Type B (PCR) M. pneumoniae (PCR) Parainfluenza 1 (PCR) Parainfluenza 2 (PCR) Parainfluenza 3 (PCR) Parainfluenza 4 (PCR) RSV (PCR) Entero/Rhino (PCR) Blood Type Antibody Screen 07/05/24 07/05/24 07/05/24 08:27 09:38 15:23 WBC RBC Hgb Hct MCV MCH MCHC RDW Plt Count Neut % (Auto) Lymph % (Auto) [place] % (Auto) Eos % (Auto) Baso % (Auto) Neut # (Auto) Lymph # (Auto) [place] # (Auto) Eos # (Auto) Baso # (Auto) ESR PT INR ABG Sample Site Left radial ABG pH 7.43 ABG pCO2 32.1 L ABG pO2 43 L* ABG HCO3 21 L ABG Total CO2 21 L ABG O2 Saturation 81 L* ABG Base Excess -2.5 L Jeremi Test Yes, passed Respiration Rate 18 O2 Delivery Device Adult ventilator Mode of Support FiO2 % 40 Tidal Volume 500 PEEP or CPAP 5 Sodium Potassium Chloride Carbon Dioxide BUN Creatinine Estimated GFR BUN/Creatinine Ratio Glucose Lactate 1.7 Calcium Magnesium Total Bilirubin AST ALT Alkaline Phosphatase Ammonia Total Creatine Kinase Troponin I C-Reactive Protein Total Protein Albumin Globulin Albumin/Globulin Ratio Procalcitonin Urine Color Urine Appearance Urine pH Ur Specific [place] Urine Protein Urine Glucose (UA) Urine Ketones Urine Occult Blood Urine Nitrate Urine Bilirubin Urine Urobilinogen Ur Leukocyte Esterase Urine RBC Urine WBC Ur Squamous Epith Cells Urine Bacteria Hyaline Casts Ur Culture Indicated? Vol Urine Centrifuged CSF Tube Number CSF Volume CSF Appearance CSF Color CSF WBC CSF RBC CSF Mononuclear WBCs CSF Polynuclear WBCs CSF Glucose CSF Total Protein CSF C.neoform/gat PCR CSF CMV DNA (PCR) CSF Enterovirus (PCR) CSF E. coli (PCR) CSF H. influenzae (PCR) CSF HSV I (PCR) CSF HSV II (PCR) CSF HHV 6 (PCR) CSF L.monocytogenes PCR CSF N. meningitidis PCR CSF Parechovirus (PCR) CSF S. agalactiae (PCR) CSF S. pneumoniae (PCR) CSF VZV (PCR) Nasal Screen MRSA (PCR) Not detected U Opiates 300ng/mL cut Ur Oxycodone Screen Urine Methadone Screen Ur Barbiturates Screen U Tricyclic Antidepress Ur Phencyclidine Scrn Ur Amphetamines Screen U Methamphetamines Scrn Ur MDMA Scrn (Ecstasy) U Benzodiazepines Scrn Urine Cocaine Screen U Marijuana (THC) Screen Urine Specific [place] Ur Creatinine Chlamy pneumoniae PCR Adenovirus (PCR) B.parapertussis DNA PCR Coronavirus OC43 (PCR) Coronavirus HKU1 (PCR) Coronavirus 229E (PCR) SARS-CoV-2 (PCR) Coronavirus NL63 (PCR) Human Metapneumovir PCR Influenza Type A (PCR) Influenza Type B (PCR) M. pneumoniae (PCR) Parainfluenza 1 (PCR) Parainfluenza 2 (PCR) Parainfluenza 3 (PCR) Parainfluenza 4 (PCR) RSV (PCR) Entero/Rhino (PCR) Blood Type Antibody Screen Assessment & Plan Assessment & Plan narrative: NEURO: # Acute encephalopathy -- Secondary to sepsis vs ingestion vs polypharmacy -- Intubated and sedated -- CTH negative -- CSF analysis not supportive of bacterial meningitis -- Minimize sedatives -- DAily SAT -- If remains encephalopathic then will need MRI brain and EEG RESP: # ACute respiratory failure -- Secondary to severe encephalopathy and ? COVID PNA -- On decadron therapy -- Intubated -- Daily SAT and SBT -- CHeck resp cx -- Start CAP coverage -- HOB elevation -- Aspiration precaution CVS: # Shock -- Secondary to sedatives, sepsis and hypovolemia -- On levophed -- Minimize sedatives -- ON decadron therapy -- Titrate levo to seek MAP goal >65 ID: # COVID PNA -- On decadron -- Follow up cx -- On contact, airborne, and droplets precautions ENDO: -- Goal BS < 180 D/w bedside RN. Time-Based Coding :: 34 minutes spent with patient and on the chart (including review of chart, obtaining history, exam, reviewing outside data, placing orders, documenting exam and treatment plan, and counseling patient) on [DATE].
--- NOTE | 2024-07-05 19:09 | PC.NURSE ---
Day Shift/Admit Note Patient arrived to room 228 at 1445 from ER, transferred to bed via slider board. RT at bedside and connected pt to mechanical ventilator. Pt on precedex, fentanyl, propofol and levo gtts - see emar for titrations. RASS -2 to -3. OG tube in place and connected to LIS. Soft wrist restraints in place to bilateral wrists, pt does reach for lines and tubes impulsively. Dr. Swift at bedside and orders reviewed and received. Dr. Alston updated and involved. Primary RN Shirley.
[2024-07-05] MEDS: NOREPINEPHRINE BITARTRATE/D5W 4 MG/250 ML PLAST..BAG 9.461 MG IV (20:15)
[2024-07-05] MEDS: fentaNYL 1,000 MCG in DEXTROSE 5% IN WATER 230 ML 42.05 MCG IV (21:43)
[2024-07-06] VITALS (38 sets, daily range): BP systolic 75–173; BP diastolic 42–73; PULSE 50–73; RESP 16; TEMP 36.5–37.3; O2SAT 95–100
[2024-07-06] MEDS: MIDAZOLAM 50 MG in DEXTROSE 5 % IN WATER 40 ML 5.046 MG IV ×2 (00:50→11:05)
[2024-07-06] MEDS: dexmedeTOMIDine in 0.9 % NaCL 400 MCG/100 ML PLAST..BAG 21.025 MCG IV ×4 (02:28→21:04)
[2024-07-06] MEDS: fentaNYL 1,000 MCG in DEXTROSE 5% IN WATER 230 ML 42.05 MCG IV ×2 (03:18→09:23)
[2024-07-06] MEDS: propofoL 1,000 MG/100 ML VIAL 17.661 MG IV ×2 (05:17→10:15)
[2024-07-06 05:19] LABS: Add Manual Diff / Slide Review NO; Basophils Absolute Auto 200 /uL (0-100); Basophils Percent Auto 1.6 % (0-2); Eosinophils Absolute Auto 100 /uL (0-450); Eosinophils Percent Auto 0.5 % (2-4); Hematocrit 24.7 % (36-46); Hemoglobin 8.9 g/dL (12.0-16.0); Lymphocytes Absolute Auto 2900 /uL (1100-4500); Lymphocytes Percent Auto 25.4 % (25-40); Mean Corpuscular HGB Conc 35.9 % (30-36); Mean Corpuscular Hemoglobin 34.4 PG (26-34); Mean Corpuscular Volume 95.9 fL (80-100); Monocytes Absolute Auto 700 /uL (0-900); Monocytes Percent Auto 6.1 % (3-14); Neutrophils Absolute Auto 7700 /uL (1500-7000); Neutrophils Percent Auto 66.4 % (50-75); Platelet Count 207 X10^3/uL (150-400); Red Blood Cell Count 2.58 X10^6/uL (4.0-5.2); Red Cell Distribution Width 14.2 % (11.6-14.8); White Blood Cell Count 11.6 X10^3/uL (4.5-11.0)
[2024-07-06 05:32] LABS: Alanine Aminotransferase 18 IU/L (<35); Albumin 3.2 g/dL (3.5-5.0); Albumin Globulin Ratio 1.1 (1.0-2.8); Alkaline Phosphatase 63 U/L (38-126); Aspartate Aminotransferase 39 IU/L (14-36); BUN Creatinine Ratio 27.4 (6-22); Bilirubin Total 0.5 mg/dL (0.2-1.3); Blood Urea Nitrogen 17 mg/dL (7-17); Calcium 7.8 mg/dL (8.4-10.2); Carbon Dioxide 22 mmol/L (22-32); Chloride 112 mmol/L (98-107); Estimated Glomerular Filt Rate > 60 mL/min (>60); Globulin 2.8 g/dL (1.7-4.1); Glucose 125 mg/dL (80-110); HEMOLYSIS < 15 (0-50); Sodium 135 mmol/L (137-145)
--- NOTE | 2024-07-06 06:00 | DI.RAD.S_ITS ---
PROCEDURE: XR CHEST 1V INDICATIONS: intubation TECHNIQUE: One view of the chest was acquired. COMPARISON: [facility], CR, XR CHEST 1V, 07/05/2024, 4:49. FINDINGS: Surgical changes and devices: Endotracheal tube, right IJ central catheter and NG tube again noted. Lungs and pleura: Patchy airspace disease in the left lung base which has developed from the previous study. This likely represents subsegmental atelectasis however developing pneumonia cannot be excluded. No pleural effusions or pneumothorax. Mediastinum: Mediastinal contours appear normal. Heart size is normal. Bones and chest wall: No suspicious bony lesions. Overlying soft tissues appear unremarkable. IMPRESSION: Left lower lung airspace disease, likely subsegmental atelectasis. Intubated. Dictated by: Celestion Enriquez M.D. on 07/06/2024 at 8:49 Approved by: Celestino Enriquez M.D. on 07/06/2024 at 8:54
--- NOTE | 2024-07-06 08:40 | CM.DANOTE ---
Initial DCP Assessment Note Pt is a 69 yo female, resident of [place], admitted for management of Acute encephalopathy, Acute respiratory failure, hypovalemia and COVID-19 PNA. According to chart review, patient awoke in the middle of the night, thrashing and disoriented. EMS called and patient was inevitably intubated int he field and remains intubated in ICU. PCP: Nick Swift Payer: [facility] Reviewed chart, met w/patient's spouse Epi who reports he and patient live independently together. Patient had a fall w/hip fx in January and went home w/outpatient therapy s/p hip repair. Spouse anticipates no needs from this CM team once patient medically improves, states appreciation for the visit. No barriers identified at this time to patient's safe discharge home w/family to assist; pending patient progresses back to functional and cognitive baseline. Close outpatient f/u likely. CM team will plan to follow clinical course closely in case any DC needs or concerns arise. AUSTIN Pearson Discharge Planning/Care Management CM Discharge Assessment Start: 07/06/24 08:36 Freq: Status: Active Protocol: Document 07/06/24 08:37 DEXTER (Rec: 07/06/24 08:40 DEXTER [id number]) Discharge Planning Assessment Assigned Boilermaker Pipe Fitter AUSTIN Ansari DPOA/Assigned Designee Name Epi Escudero, spouse Contact Information [phone] Advance Directives? No History Provided By Significant Other,Medical Record Prior Living Arrangements House Household Members spouse Type of transporation used prior to Drives own vehicle admit Independent with ADL's Yes Is patient alert and oriented? Yes Barriers to Discharge No Discharge Plan Home Transportation Arrangement Spouse Referrals Initiated None needed
[2024-07-06] MEDS: ENOXAPARIN 40 MG/0.4 ML SYRINGE SUBCUT ×2 (09:17→18:42)
[2024-07-06] MEDS: PANTOPRAZOLE 40 MG VIAL IV (09:18)
[2024-07-06] MEDS: DEXAMETHASONE 10 MG/ML VIAL 6 MG IV (09:18)
--- NOTE | 2024-07-06 11:51 | DIET.PN1 ---
Dietary Progress Note Assessment: Nutrition f/u. Consulted placed for pt vented and NPO. Enteral nutrition recommendations updated based on adjusted propofol dose. Propofol now at 35 mcg/kg/min providing 466 kcals. Updated reccs provided below. Per healthcare team rounds, plans for attempted extubation today. Per RN, may be transferred due to higher acuity needs. Ht: 182.88 cm Wt: 84.1 kg BMI: 25.1 Last BM: 07/04/24 (07/05/24 15:13) MNA: 12 Bj Score: 10 Labs: RBC 2.58 X10^6/uL (4.0-5.2) L 07/06/24 05:10 Hgb 8.9 g/dL (12.0-16.0) L 07/06/24 05:10 Hct 24.7 % (36-46) L 07/06/24 05:10 Creatinine 0.62 mg/dL (0.52-1.04) 07/06/24 05:10 Lactate 1.7 mmol/L (0.7-2.1) 07/05/24 09:38 Nutrition Diagnosis: Inadequate oral intake r/t ventilation aeb NPO status Interventions: 1. Recc initiation of enteral nutrition support in first 48 h as medically able if pt remains intubated and NPO. Recc as follows: Continuous enteral feeding of Pivot 1.5 starting at 10 mL/hr and titrating up by 10-20 mL q 6h as tolerated/if no signs of refeeding syndrome until goal rate of 35 mL/hr. Flush 100 mL q 4h. Goal rate provides 1726 kcals with propofol (100% of EER), 79 g protein (79% of EER) and 630 mL water. Feeds +flush+IV meets fluid needs of 2520 mL/day (30 mL/kg). 2. Mg, K+. phos labs BID for first 3 days if enteral nutrition support initiated EER: [id number] kcals (20-23 kcal/kg per BMI) 100 g protein (1.2 g/kg per COVID) Monitoring/Evaluations: intubation status, start of TF, rate, labs Electronically Signed by: Molly Bob 07/06/24 11:51 Clinical Dietitian [address] [address]
[2024-07-06] MEDS: POTASSIUM CHLORIDE IN WATER 10 MEQ/100 ML PIGGYBACK 100 MEQ IV ×6 (12:15→16:47)
[2024-07-06] MEDS: BUPRENORPHINE/NALOXONE 8MG/2MG 1 TAB SL ×2 (12:52→21:01)
--- NOTE | 2024-07-06 14:25 | PC.NURSE ---
Addendum entered by Shirley Tamayo R.N. 07/06/24 17:06: Attempted an SBT, titrated gtts to half, pt woke up swinging limbs, bitting ETT pulling at restraints, not following commands, turned sedation gtts back up, notified Dr Swift of the second sedation vacation trial (first was at 6am for previous shift with similar results). During that time results came back from the LP showing High levels of Protein and glucose in CSF. Results were relayed to Dr Swift and decision was made to initiate transfer to a higher level of care for MRI and neurology consults for possible viral meningitis. Updated Epi on the new plan, he agrees, Sheela, Charge nurse making calls. Will continue to monitor Original Note: Gave oral suboxone through OG tube as ordered, started titrating drips down in an attempt to assess pt cognition. It has been a slow process, 1400 turned off Levophed BP is holding at 117/58 MAP at 65, continuing to titrate gtts down (see emar), Epi at bedside, all questions answered, will continue to monitor closely
[2024-07-06] MEDS: CHLORHEXIDINE GLUCONATE 15 ML CUP PO ×2 (14:42→21:01)
[2024-07-06] MEDS: propofoL 1,000 MG/100 ML VIAL 15.138 MG IV ×2 (15:00→21:34)
[2024-07-06] MEDS: fentaNYL 1,000 MCG in DEXTROSE 5% IN WATER 230 ML 21.025 MCG IV ×2 (15:01→16:47)
--- NOTE | 2024-07-06 15:51 | PC.NURSE ---
1530: Transfer efforts initiated, external facility request for ICU/Neurology specialty by Dr. Swift.
--- NOTE | 2024-07-06 16:40 | PM.PN.EICU ---
Subjective Subjective IF CAMERA ACTIVATED, patient seen via real-time interactive audiovisual communication: Camera activated Consent obtained for tele-stockroom coordinator care: Yes Patient Location: ICU Provider location (State): [place] Other participants/roles: RN Interval history: pt remains intubated on low settings though, requiring heavy sedation Current Medications Current Medications Medications: Home Medications CHOLECALCIFEROL (VITAMIN D3) (Vitamin D3) 5,000 iu PO Q DAY ##0 08/25/10 [History Confirmed 07/05/24] VITAMIN C - (VITAMIN C) 1,000 mg PO Q DAY ##0 08/25/10 [History Confirmed 07/05/24] Vitamin E (Alpha-Tocopherol) 800 unit PO Q DAY ##0 08/25/10 [History Confirmed 07/05/24] COENZYME Q10/VITAMIN E (CO-Q-10 200mg) 200 mg PO QDAY ##0 03/13/13 [History Confirmed 07/05/24] [FISH OIL] 1,000 mg PO DAILY ##0 03/13/13 [History Confirmed 07/05/24] [GLUCOSAMINE] 1,500 mg PO Q DAY ##0 03/13/13 [History Confirmed 07/05/24] buprenorphine 8 mg-naloxone 2 mg sublingual film (Suboxone) 8 film sublingual DAILY ##0 03/13/13 [History Confirmed 07/05/24] gabapentin 600 mg tablet (Neurontin) 600 mg PO TID ##0 03/13/13 [History Confirmed 07/05/24] nadolol 20 mg tablet (Corgard) 40 mg PO QDAY ##0 03/13/13 [History Confirmed 07/05/24] Miralax 1 tbsp PO DAILY 02/11/24 [History Confirmed 07/05/24] vitamin B complex 1 tab PO DAILY 02/11/24 [History Confirmed 07/05/24] cyclobenzaprine 10 mg tablet 10 mg PO Q8H PRN muscle spasm 07/05/24 [History Confirmed 07/05/24] venlafaxine 150 mg capsule,extended release 24 hr 150 mg PO DAILY 07/05/24 [History Confirmed 07/05/24] venlafaxine 75 mg capsule,extended release 24 hr 75 mg PO DAILY 07/05/24 [History Confirmed 07/05/24] Visit Medications (administered) Generic Name Dose Route Start Last Admin Trade Name Freq PRN Reason Stop Dose Admin Buprenorphine/Naloxone 1 tab 07/06/24 12:45 07/06/24 12:52 Buprenorphine/Naloxone 8mg/2mg 1 Tab SL 1 tab BID KATTY Administration Chlorhexidine Gluconate 15 ml 07/06/24 14:15 07/06/24 14:42 Chlorhexidine Gluconate 15 Ml Cup PO 15 ml BID KATTY Administration Dexamethasone 6 mg 07/06/24 09:00 07/06/24 09:18 Dexamethasone 10 Mg/Ml Vial IV 6 mg DAILY KATTY Administration Enoxaparin Sodium 40 mg 07/05/24 06:00 07/06/24 09:17 Enoxaparin 40 Mg/0.4 Ml Syringe SUBCUT 40 mg Q12H KATTY Administration Heparin Sodium (Porcine) 50 unit 07/05/24 21:00 07/06/24 09:56 Heparin Flush (Cl/Picc/Mid-Line) 50 Unit/5 Ml Syringe IV Not Given BID KATTY Propofol 1,000 mg in 100 mls @ 25.23 mls/hr 07/05/24 03:00 07/06/24 15:00 Propofol IV 30 mcg/kg/min TITRATE KATTY 15.138 mls/hr Administration Protocol 50 MCG/KG/MIN Fentanyl 1,000 mcg/ Dextrose 250 mls @ 14.718 mls/hr 07/05/24 04:00 07/06/24 15:01 IV 1 mcg/kg/hr TITRATE KATTY 21.025 mls/hr Administration Protocol 0.7 MCG/KG/HR Dextrose/Sodium Chloride 1,000 mls @ 100 mls/hr 07/05/24 06:00 07/05/24 19:00 Dextrose 5%-0.45% Ns IV 0 mls/hr CONT KATTY Infusion dexmedeTOMIDine in 0.9 % NaCL 400 mcg in 100 mls @ 4.205 mls/hr 07/05/24 06:45 07/06/24 11:56 Precedex IV 1 mcg/kg/hr TITRATE KATTY 21.025 mls/hr Administration Protocol 0.2 MCG/KG/HR NOREPINEPHRINE BITARTRATE/D5W 4 mg in 250 mls @ 31.538 mls/hr 07/05/24 08:10 07/06/24 14:01 Levophed IV 0 mcg/kg/min TITRATE KATTY 0 mls/hr Titration Protocol 0.1 MCG/KG/MIN Midazolam HCl 50 mg/ Dextrose 50 mls @ 1.682 mls/hr 07/05/24 15:44 07/06/24 15:16 IV 0.06 mg/kg/hr TITRATE PRN 5 mls/hr Agitation Titration Protocol 0.02 MG/KG/HR Ceftriaxone Sodium 2,000 mg/ 100 mls @ 200 mls/hr 07/05/24 18:45 07/05/24 19:36 Sodium Chloride IV Infused Q24H KATTY Infusion POTASSIUM CHLORIDE IN WATER 10 meq in 100 mls @ 100 mls/hr 07/06/24 12:30 07/06/24 15:32 Potassium Cl 10 Meq/100 Ml Rosangela IV 07/06/24 18:29 100 mls/hr Q1H KATTY Administration Pantoprazole Sodium 40 mg 07/05/24 09:00 07/06/24 09:18 Pantoprazole 40 Mg Vial IV 40 mg DAILY KATTY Administration Objective Ventilator Parameters: Ventilator Settings FiO2 21 RT Vent Frequency 16 Ventilator Tidal Volume 500 Exhaled Vt/kg IBW 7 Positive End Expiratory 5 Pressure Inspiratory Phase Time 0.8 I:E Ratio 1:3.7 Patient Position HOB >= 30 degrees Labs 07/06/24 05:10 07/06/24 05:10 Labs: Laboratory Results - last 24 hr 07/05/24 07/06/24 15:23 05:10 WBC 11.6 H RBC 2.58 L Hgb 8.9 L Hct 24.7 L MCV 95.9 MCH 34.4 H MCHC 35.9 RDW 14.2 Plt Count 207 Neut % (Auto) 66.4 Lymph % (Auto) 25.4 [place] % (Auto) 6.1 Eos % (Auto) 0.5 L Baso % (Auto) 1.6 Neut # (Auto) 7700 H Lymph # (Auto) 2900 [place] # (Auto) 700 Eos # (Auto) 100 Baso # (Auto) 200 H Sodium 135 L Potassium 3.0 L Chloride 112 H Carbon Dioxide 22 BUN 17 Creatinine 0.62 Estimated GFR > 60 BUN/Creatinine Ratio 27.4 H Glucose 125 H Calcium 7.8 L Total Bilirubin 0.5 AST 39 H ALT 18 Alkaline Phosphatase 63 Total Protein 6.0 L Albumin 3.2 L Globulin 2.8 Albumin/Globulin Ratio 1.1 Nasal Screen MRSA (PCR) Not detected Exam Vital Signs (past 8 hours): - 07/06/24 10:00 Oxygen Delivery Method Mechanical Ventilation Fraction of Inspired Oxygen 60 Oxygen Delivery Method Mechanical Ventilation Narrative Exam Narrative: intubated/sedated symmetric chest rise synchronous with vent rate ocntrolled Quality TeleICU VTE Deep Vein Thrombosis/Pulmonary Embolism Present on Admission: No Assessment & Plan Assessment & Plan narrative: NEURO: # Acute encephalopathy -- Secondary to sepsis vs ingestion vs polypharmacy -- Intubated and sedated -- CTH negative -- CSF analysis not supportive of bacterial meningitis, f/u send ot labs, eleavted protein could be from viral source -- DAily SAT -- If remains encephalopathic then will need MRI brain and EEG -- restart suboxone and wean sedation as toelrated RESP: # ACute respiratory failure -- Secondary to severe encephalopathy and ? COVID PNA -- On decadron therapy -- Intubated -- Daily SAT and SBT -- CHeck resp cx -- Start CAP coverage -- HOB elevation -- Aspiration precaution CVS: # Shock -- imrpoving ID: # COVID PNA -- On decadron -- Follow up cx -- On contact, airborne, and droplets precautions ENDO: -- Goal BS < 180 D/w bedside RN. will plan on startinf TF tomorrow if sedation is not signifcanly imrpoved PSV trials. total Critical care time 35 min, Time-Based Coding :: [TOTAL MINUTES] spent with patient and on the chart (including review of chart, obtaining history, exam, reviewing outside data, placing orders, documenting exam and treatment plan, and counseling patient) on [DATE].
--- NOTE | 2024-07-06 17:40 | P.PN_ITS ---
Subjective Subjective Date Patient Seen: 07/06/24 Time Patient Seen: 08:20 Interval history: CC: intubated Patient remains intubated today, she is resisting efforts to extubate despite weaning sedation. 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 Lumbar puncture demonstrated high protein, normal glucose, raising concern for possible viral meningitis picture. All in all this strongly motivates use to seek higher level of care. Exam Vital Signs (past 8 hours): - 07/06/24 10:00 07/06/24 14:00 Oxygen Delivery Method Mechanical Ventilation Mechanical Ventilation Fraction of Inspired Oxygen 60 Oxygen Delivery Method Mechanical Ventilation Objective Labs 07/06/24 05:10 07/06/24 05:10 Labs: Laboratory Results - last 24 hr 07/06/24 05:10 WBC 11.6 H RBC 2.58 L Hgb 8.9 L Hct 24.7 L MCV 95.9 MCH 34.4 H MCHC 35.9 RDW 14.2 Plt Count 207 Neut % (Auto) 66.4 Lymph % (Auto) 25.4 [place] % (Auto) 6.1 Eos % (Auto) 0.5 L Baso % (Auto) 1.6 Neut # (Auto) 7700 H Lymph # (Auto) 2900 [place] # (Auto) 700 Eos # (Auto) 100 Baso # (Auto) 200 H Sodium 135 L Potassium 3.0 L Chloride 112 H Carbon Dioxide 22 BUN 17 Creatinine 0.62 Estimated GFR > 60 BUN/Creatinine Ratio 27.4 H Glucose 125 H Calcium 7.8 L Total Bilirubin 0.5 AST 39 H ALT 18 Alkaline Phosphatase 63 Total Protein 6.0 L Albumin 3.2 L Globulin 2.8 Albumin/Globulin Ratio 1.1 [facility] Medical History (Updated 07/05/24 @ 09:23 by Lety Gifford MD) Former smoker GERD without esophagitis Mixed hyperlipidemia Essential hypertension PTSD (post-traumatic stress disorder) Generalized anxiety disorder Depression Chronic pain syndrome Degenerative disc disease Spinal stenosis Surgical History (Updated 07/05/24 @ 07:12 by Jose Longoria MD) Status post hip hemiarthroplasty (~01/2024) Status post cholecystectomy Status post cervical spinal fusion Family History Mother Hypertension Cancer Father Stroke Social History marital status: household members: spouse occupational status: employed Smoking Status: Former smoker alcohol intake: never substance use type: does not use Assessment & Plan Time-Based Coding :: [TOTAL MINUTES] spent with patient and on the chart (including review of chart, obtaining history, exam, reviewing outside data, placing orders, documenting exam and treatment plan, and counseling patient) on [DATE]. Quality VTE Deep Vein Thrombosis/Pulmonary Embolism Present on Admission: No
[2024-07-06] MEDS: cefTRIAXone 2,000 MG in SODIUM CHLORIDE 0.9% 100 ML 200 MG IV (18:42)
--- NOTE | 2024-07-06 19:16 | PM.DS.1 ---
History of Present Illness History of Present Illness Date Patient Seen: 07/06/24 Time Patient Seen: 10:00 Date of Onset of Symptoms: 07/05/24 Chief complaint: Intubated Narrative: CC: altered mental status 69yo F with acute encephalopathy in setting of Covid infection intubated in field yesterday morning. Today we remain unable to extubate safely today despite weaning sedation she thrashes around/does not follow commands. Soft restraints remain in place. 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 Valdovinos accepting. Discharge Providers Provider Date of admission: 07/05/24 05:56 Discharge Date: 07/06/24 Primary care physician: Nick Swift MD Consults: 07/05/24 05:51 Consult to Dietitian, Adult Routine Comment: Reason For Exam: Patient on Ventilator and NPO 07/06/24 10:04 Consult to Dietitian, Adult Routine Comment: Reason For Exam: Pt currently vented and sedated Discharge provider: Nick Swift MD Summary Hospital Course Discharge Diagnosis: #acute metabolic encephalopathy #intubated status #covid-19 infection #acute cystitis, gram negative bacillus #primary hypertension #chronic MSK pain on daily opiates Hospital Course: 69-year-old female with hx of MDD on daily suboxone, presents by EMS intubated and sedated in field, brought in from home for altered mental status. Patient was diagnosed with COVID-19 earlier last week. Per patient seemed to be recovering from the COVID infection over the last several days, but Wednesday began to feel more poorly and spent most of the day in bed. As the day progressed she seemed to become more agitated, taking off her clothes and sleeping in a different bedroom than usual, however he attributed it to her just being hot in June. Otherwise she went to bed ?completely normal? per , however in the middle of the night patient woke up thrashing and acting very abnormally, not answering questions, so he called 911. When EMS arrived patient was tachycardic at a rate of 180 beats per minute and saturating in the 80s on room air. For SVT EMS administered 2 shocks, however rate did not change. Patient was acting extremely erratically and they could not get patient to follow even simple commands and so they intubated her for airway protection with versed, ketamine, rocuronium. Lumbar puncture in ED was successful, clear appearing CSF eventually showed high glucose, high protein, no WBCs. She was found to have a significant leukocytosis in ED with bandemia and received rocephin and azithromycin IV - this did improve overnight with putative source her urine which is growing a gram negative bacillus so rocephin has been continued. She remained in soft restraints due to pulling at lines and not following commands. Despite adjustments to her sedative profile, providing her suboxone per tube at suggestion of tele supervisor epoxy fabrication and noted improvement in WBCs on rocephin over the course of her admission she was not able to be extubated safely due to not following commands/thrashing during attempts, raising suspicion for some degree of FINAL ASSEMBLY WORKER involvement either from COVID or an undiagnosed stroke or some degree of anoxia perhaps. Arrangements were therefore made to transfer to a higher level of care with neurology support. Status at Discharge Cognitive/behavioral status at discharge: confused Functional status at discharge: bed bound Overall status at discharge: patient is not back to baseline Time Spent with Patient Time spent: Greater than 30 minutes Exam Vital Signs (past 8 hours): - 07/06/24 12:00 07/06/24 12:00 07/06/24 13:00 Temperature 98.1 F Pulse Rate 71 Respiratory Rate 16 Blood Pressure 144/65 H 131/63 Pulse Oximetry 96 Oxygen Delivery Method 07/06/24 13:00 07/06/24 14:00 07/06/24 14:00 Temperature 98.2 F 98.1 F Pulse Rate 54 L 57 L Respiratory Rate 16 16 Blood Pressure Pulse Oximetry 97 97 Oxygen Delivery Method Mechanical Ventilation 07/06/24 14:00 07/06/24 15:00 07/06/24 15:01 Temperature 97.9 F 97.9 F Pulse Rate 56 L 56 L Respiratory Rate 16 16 Blood Pressure 117/58 L Pulse Oximetry 98 98 Oxygen Delivery Method 07/06/24 15:01 07/06/24 16:00 07/06/24 16:01 Temperature 97.9 F 97.9 F Pulse Rate 53 L 54 L Respiratory Rate 16 16 Blood Pressure 155/71 H Pulse Oximetry 96 95 Oxygen Delivery Method 07/06/24 16:01 07/06/24 17:00 07/06/24 17:00 Temperature 97.7 F Pulse Rate 50 L Respiratory Rate 16 Blood Pressure 113/55 L 125/58 L Pulse Oximetry 97 Oxygen Delivery Method 07/06/24 18:00 07/06/24 18:00 07/06/24 18:00 Temperature 97.7 F Pulse Rate 52 L Respiratory Rate 16 Blood Pressure 159/72 H Pulse Oximetry 98 Oxygen Delivery Method Mechanical Ventilation 07/06/24 19:00 07/06/24 19:00 Temperature 97.9 F Pulse Rate 52 L Respiratory Rate 16 Blood Pressure 149/69 H Pulse Oximetry 98 Oxygen Delivery Method Fraction of Inspired Oxygen 60 Oxygen Delivery Method Mechanical Ventilation Narrative Exam Narrative: intubated, sedated Resp Other: clear to auscultation bilaterally, shallow independent respirations if not prompted by vent Cardio Other: regular rate and rhythm, s2/s2 GI Other: soft nontender active NG bilious output Other: clear yellow from [facility] Other: sedated unresponsive Extrem Other: no pedal edema Objective Labs 07/06/24 05:10 07/06/24 19:10 Labs: Laboratory Results - last 24 hr 07/06/24 05:10 WBC 11.6 H RBC 2.58 L Hgb 8.9 L Hct 24.7 L MCV 95.9 MCH 34.4 H MCHC 35.9 RDW 14.2 Plt Count 207 Neut % (Auto) 66.4 Lymph % (Auto) 25.4 [place] % (Auto) 6.1 Eos % (Auto) 0.5 L Baso % (Auto) 1.6 Neut # (Auto) 7700 H Lymph # (Auto) 2900 [place] # (Auto) 700 Eos # (Auto) 100 Baso # (Auto) 200 H Sodium 135 L Potassium 3.0 L Chloride 112 H Carbon Dioxide 22 BUN 17 Creatinine 0.62 Estimated GFR > 60 BUN/Creatinine Ratio 27.4 H Glucose 125 H Calcium 7.8 L Total Bilirubin 0.5 AST 39 H ALT 18 Alkaline Phosphatase 63 Total Protein 6.0 L Albumin 3.2 L Globulin 2.8 Albumin/Globulin Ratio 1.1 [facility] Medical History (Updated 07/05/24 @ 09:23 by Lety Gifford MD) Former smoker GERD without esophagitis Mixed hyperlipidemia Essential hypertension PTSD (post-traumatic stress disorder) Generalized anxiety disorder Depression Chronic pain syndrome Degenerative disc disease Spinal stenosis Surgical History (Updated 07/05/24 @ 07:12 by Jose Longoria MD) Status post hip hemiarthroplasty (~01/2024) Status post cholecystectomy Status post cervical spinal fusion Family History Mother Hypertension Cancer Father Stroke Social History marital status: household members: spouse occupational status: employed Smoking Status: Former smoker alcohol intake: never substance use type: does not use Discharge Assessment & Plan Assessment and Plan Assessment: #acute metabolic encephalopathy #intubated status Etiology still unclear, treated for sepsis with some improvement in WBCs however still not able to extubate safely No evidence of pulmonary issues overall her respiratory status seems ok #covid-19 infection degree of severity and involvement in current issue unclear but she never got fully better from diagnosis a week ago. #acute cystitis, gram negative bacillus received azithromycin and rocephin in ED, rocephin continued and doing well, recommend at least one more dose on Wednesday #primary hypertension takes light beta peter at baseline usually does well, BP doing ok without, monitor #chronic MSK pain on daily opiates takes suboxone 8-2 twice daily, generally controlled Dispo: [facility] to [facility] ICU c/o Dr. Valdovinos MDM: PCP: Jeniffer DVT ppx: lovenox Diet: Intubated - will need to start enteral feeds via nasal tube garret if she is to remain intubated Discharge Plan Discharge Plan Patient Disposition: [facility] Other facility: [facility] Under care of provider: Dr. Valdovinos Discharge Data Primary Care Provider: Nick Swift VTE Deep Vein Thrombosis/Pulmonary Embolism Present on Admission: No
[2024-07-06 19:32] LABS: HEMOLYSIS < 15 (0-50); Potassium 4.6 mmol/L (3.4-5.1)
--- NOTE | 2024-07-06 20:32 | PM.ICURNDS ---
- :: This patient was seen via real time interactive two-way audiovisual telecommunication. Note: Patient admitted for acute encephalopathy of unclear etiology. Currently accepted to tertiary care for further workup. Will continue supportive care pending EMS arrival. D/w bedside RN.
[2024-07-06] MEDS: MIDAZOLAM 50 MG in DEXTROSE 5 % IN WATER 40 ML IV (21:35)
--- NOTE | 2024-07-06 22:13 | PC.NURSE ---
Patient picked up by [facility] for transport to [facility], bedside report given to transporting RN , phone report given to Neuro BLUE SPLIT TRIMMER
== END 2024-07-06 22:45 | disposition short-term general hospital (02) | DRG 871 ==
LOC: ED 04:58 → AC 05:57 → ICU 14:36
PROVIDERS: Admitting Provider Internal Medicine; Emergency Provider Family Medicine; PCP Family Medicine; Referring Provider Emergency Medicine; Visit Provider Family Medicine
DX: A41.9 Sepsis, unspecified organism (principal); G93.41 Metabolic encephalopathy; J96.01 Acute respiratory failure with hypoxia; U07.1 COVID-19; J12.82 Pneumonia due to coronavirus disease 2019; R65.21 Severe sepsis with septic shock; I47.10 Supraventricular tachycardia, unspecified; N30.00 Acute cystitis without hematuria; F41.1 Generalized anxiety disorder; F43.10 Post-traumatic stress disorder, unspecified; G89.29 Other chronic pain; I10 Essential (primary) hypertension; K21.9 Gastro-esophageal reflux disease without esophagitis; B96.89 Other specified bacterial agents as the cause of diseases classified elsewhere; F32.9 Major depressive disorder, single episode, unspecified; Z79.891 Long term (current) use of opiate analgesic; Z87.891 Personal history of nicotine dependence
CPT/HCPCS: 36415; 36600; 70450; 71045; 71275; 80053; 80305; 81001; 82140; 82550; 82805; 82945; 82962; 83605; 83735; 84132; 84145; 84157; 84484; 85025; 85610; 85651; 86140; 86850; 86900; 86901; 87040; 87070; 87077; 87086; 87186; 87205; 87633; 87797; 87798; 89051; 93005; 93306; 94002; 94003; 94799; 96365; 96366; 96367; 96375; 96376; 99285; 99291; 99292; J0136; J0696; J1100; J1170; J1642; J1650; J2250; J2470; J2704; J3010

== ENCOUNTER → 2024-11-20 07:08 | Outpatient (CLI) | payer OTHER, MEDICARE, SELFPAY ==
[2024-07-05 15:13] VITALS: BMI 25.1
[2024-07-06 19:03] VITALS: PULSE 52; RESP 16; O2SAT 98
--- NOTE | 2024-11-20 07:12 | DI.RAD.S_ITS ---
PROCEDURE: XR CERVICAL SPINE 4V OR 5V INDICATIONS: NECK PAIN TECHNIQUE: Five views of the cervical spine acquired. COMPARISON: None. FINDINGS: Bones: Normal mineralization. No acute vertebral body fractures. Well-healed osseous fusion of C5 and C6. Normal alignment. Uncovertebral joint hypertrophy and endplate spur formation at C6-7 cause moderate to severe bilateral foraminal narrowing. Moderate C6-7 disc height loss. Odontoid view is normal. Soft tissues: There is moderate prevertebral soft tissue swelling from C4 through C6. No visible soft tissue gas. Degenerative laryngeal calcification and mild left carotid atherosclerotic calcification is seen. IMPRESSION: Unusual prevertebral soft tissue swelling anterior to the lower cervical spine. Clinical correlation suggested. Recommend CT of the neck soft tissues with contrast if clinically indicated. Report alert called to the office of the ordering physician. Dictated by: Melissa Granger M.D. on 11/20/2024 at 12:45 Approved by: Melissa Granger M.D. on 11/20/2024 at 12:52
== END ==
PROVIDERS: PCP Family Medicine; Referring Provider Family Medicine; Visit Provider Family Medicine
DX: M54.2 Cervicalgia (principal); M79.89 Other specified soft tissue disorders; I65.22 Occlusion and stenosis of left carotid artery; J38.7 Other diseases of larynx; Z98.1 Arthrodesis status
CPT/HCPCS: 72050

== ENCOUNTER → 2024-11-28 09:16 | Outpatient (CLI) | payer OTHER, MEDICARE, SELFPAY ==
[2024-07-05 15:13] VITALS: BMI 25.1
[2024-07-06 19:03] VITALS: PULSE 52; RESP 16; O2SAT 98
--- NOTE | 2024-11-28 09:20 | DI.CT.S_ITS ---
PROCEDURE: CT SOFT TISSUE NECK W CON INDICATIONS: soft tissue mass TECHNIQUE: After the administration of intravenous contrast, 3.0 mm axial sections acquired from the sella to the aortic arch. Additional oblique axial 3.0 mm sections acquired through the pharynx. 3 mm thick coronal and sagittal reformats were generated. For radiation dose reduction, the following was used: automated exposure control. COMPARISON: [facility], CR, XR CERVICAL SPINE 4V OR 5V, 11/20/2024, 7:20. FINDINGS: Image quality: Excellent. Lymph nodes: No enlarged lymph nodes seen throughout the neck. Mildly enlarged pretracheal mediastinal lymph node measuring 1.1 cm in short axis. Vessels: Visualized vasculature appears patent. Atherosclerotic vascular calcifications. Neck spaces: The oropharynx, nasopharynx, and pharynx demonstrate no mucosal lesions. The vocal cords, false vocal cords, pyriform sinuses, epiglottis, vallecula, and tongue base all appear normal. Extramucosal spaces appear unremarkable. Glands: The parotid and submandibular glands appear normal. Thyroid gland is markedly enlarged and heterogeneous with multiple nodules. Miscellaneous: Visualized brain and orbits appear normal. Lung apices demonstrate areas of mosaic attenuation which may represent air trapping. Superficial soft tissues appear normal. Bones: No suspicious bony lesions. Multilevel degenerative changes of the cervical spine with ankylosis of the C5 and C6 vertebral bodies. Visualized sinuses and mastoids appear unremarkable. IMPRESSION: The thyroid gland is markedly enlarged with multiple nodules. A portion of the right thyroid lobe extends posteriorly which likely correlates to the finding seen on radiograph. Recommend thyroid ultrasound for further evaluation. Mildly enlarged mediastinal lymph node measuring 1.1 cm in short axis, nonspecific. Areas of mosaic attenuation within the visualized lung apices, may represent air trapping. Dictated by: Christopher Pulliam M.D. on 11/28/2024 at 13:40 Approved by: Christopher Pulliam M.D. on 11/28/2024 at 13:44
[2024-11-28 09:54] LABS: Estimated Glomerular Filt Rate > 60 mL/min (>60)
== END ==
PROVIDERS: Radiology Diagnostic Radiology; PCP Family Medicine; Referring Provider Family Medicine; Visit Provider Family Medicine
DX: M47.812 Spondylosis without myelopathy or radiculopathy, cervical region (principal); M54.2 Cervicalgia; M79.89 Other specified soft tissue disorders; M48.9 Spondylopathy, unspecified; E04.2 Nontoxic multinodular goiter; R59.0 Localized enlarged lymph nodes
CPT/HCPCS: 36415; 70491; 82565; Q9967

== ENCOUNTER → 2024-12-13 06:45 | Outpatient (CLI) | payer OTHER, MEDICARE, SELFPAY ==
[2024-07-05 15:13] VITALS: BMI 25.1
[2024-07-06 19:03] VITALS: PULSE 52; RESP 16; O2SAT 98
--- NOTE | 2024-12-13 06:50 | DI.US.S_ITS ---
PROCEDURE: US THYROID INDICATIONS: ENLARGED THYROID ON CT TECHNIQUE: Real-time scanning was performed of the thyroid gland, with image documentation. COMPARISON: [facility], CT, CT SOFT TISSUE NECK W CON, 11/28/2024, 10:11. FINDINGS: Thyroid: Right lobe measures 6.9 x 4.5 x 3.5 cm. Left lobe measures 7.1 x 2.7 x 2.4 cm. Isthmus is 0.3 cm thick. Echotexture is heterogeneous. Nodule number: 1 Location: Left superior Size: 1.3 x 0.9 x 0.7 cm. Composition: Mixed cystic and solid Echogenicity: Isoechoic Shape: wider than tall. Margins: Smooth Echogenic foci: None Total points: 2 ACR TI-RADS category: TR 2, not suspicious Nodule number: 2 Location: Right mid/inferior Size: 5.1 x 4.1 x 3.6 cm. Composition: Solid Echogenicity: Isoechoic Shape: wider than tall. Margins: Smooth Echogenic foci: None Total points: 3 ACR TI-RADS category: TR 3, mildly suspicious IMPRESSION: Right mid/inferior thyroid nodule measuring 5.1 cm. TR 3, mildly suspicious. FNA is recommended given its large size. ACR TI-RADS definitions and recommendations: TI-RADS 1 (benign): 0 points. FNA not needed. TI-RADS 2 (not suspicious): 2 points. FNA not needed. TI-RADS 3: 3 points. * FNA if 2.5 cm or larger, follow up if 1.5 cm or larger (at 1, 3, and 5 years). TI-RADS 4: 4-6 points. * FNA if 1.5 cm or larger, follow up if 1 cm or larger (at 1, 2, 3, and 5 years). TI-RADS 5: 7 points or more. * FNA if 1 cm or larger, follow up if 0.5 cm or larger (every year for 5 years). Dictated by: Ziyad Romero M.D. on 12/13/2024 at 9:43 Approved by: Ziyad Romero M.D. on 12/13/2024 at 9:48
== END ==
PROVIDERS: PCP Family Medicine; Referring Provider Family Medicine; Visit Provider Family Medicine
DX: R93.89 Abnormal findings on diagnostic imaging of other specified body structures (principal); M79.89 Other specified soft tissue disorders; E04.1 Nontoxic single thyroid nodule
CPT/HCPCS: 76536

== ENCOUNTER → 2024-12-27 08:22 | Outpatient (CLI) | payer OTHER, MEDICARE, SELFPAY ==
[2024-07-05 15:13] VITALS: BMI 25.1
[2024-07-06 19:03] VITALS: PULSE 52; RESP 16; O2SAT 98
--- NOTE | 2024-12-27 | PATH_ITS ---
Note [facility] Accession Number: [id number] TESTS RESULT FLAG UNITS REF RANGE LAB Clinician Provided Cytology Information No. of containers..02 Previously Prepared Cytology Slide 35 Unknown Storage/container code(s) Source: RIGHT THYROID NODULE MID/INFERIOR DIAGNOSIS: RIGHT THYROID NODULE MID/INFERIOR BENIGN. B[place] CATEGORY II. SPECIMEN CONSISTS OF BENIGN FOLLICULAR CELLS, HEMOSIDERIN-LADEN MACROPHAGES, COLLOID, AND BLOOD. THIS PATTERN IS CONSISTENT WITH FOLLICULAR NODULAR DISEASE. Pathologist ICD10: E04.1 Signed out by: Marcia Delvalle DO, Pathologist NPI- [id number] Performed by: Cristhian Galindo, Corporate Director Of Human Resources ([facility]) Gross description: 30 CC, PINK, CLEAR RECIEVED: IN CYTOLYT WITH 6 ALCOHOL FIXED AND 6 QUICK STAINED SLIDES ALSO 1 RNA VIAL WILL ON 07-06-2025.VO /VDU 12/28/2024 0620 Local FLAG LEGEND: L-Low Normal,H-High Normal,LL-Alert Low,HH-Alert High <-Panic Low,>-Panic High,A-Abnormal,AA-Critical Abnormal Performed at: 01 =[facility] [facility], [place] [address] Epi Travis MD, Performed at: [address], [place], [place] [id number] MD Epi Travis MD Phone: [phone]
--- NOTE | 2024-12-27 08:25 | DI.US.S_ITS ---
PROCEDURE: US FINE NEEDLE ASPIRATION INDICATIONS: THYROID NODULE RIGHT MID/INFERIOR TECHNIQUE: The indications, alternatives, benefits, risks, and complications of the procedure were explained to the patient. Written informed consent was obtained and placed in the chart. The thyroid region was examined sonographically and a site was chosen for ultrasound guided percutaneous sampling. The skin was prepared and draped in the usual fashion, and anesthetized with 1% lidocaine infiltrated from the skin down to the thyroid gland. Multiple passes were then performed, with contents emptied into an appropriate pathology specimen container. A bandage was applied to the area of access at completion of the study. COMPARISON: None. FINDINGS: Location(s) of lesion(s) sampled: Right thyroid lobe [place]: 25 gauge hypodermic needles. Number of passes: 6 Medications: 1% lidocaine for local anaesthesia. Complications: None. IMPRESSION: Successful ultrasound-guided thyroid nodule fine needle aspiration, with cytology results pending. Please see chart below for management recommendations based on cytology results. [place] [facility] ReportingRecommendationsNon-diagnostic* Repeat US-guided FNA, with on-site cytology evaluation if possible. * Repeated non-diagnostic nodules without high suspicion US features: close observation vs surgical consult. * Consider surgery if nodule has high suspicion US features, grows >20% in 2 dimensions on followup, or patient has clinical risk factors for malignancy. Benign* If nodule has high suspicion US features: repeat US and FNA within 12 months. * If nodule has low to intermediate suspicion US features: repeat US at 12-24 months. If nodule grows (20% increase in at least 2 dimensions, with minimal increase of 2 mm or >50% change in volume), or development of new suspicious US features, then repeat FNA or continue followup. * If nodule has very low suspicion US features: followup US at >24 months. Atypia of undetermined significance, follicular lesion of undetermined significanceRepeat FNA, molecular testing, followup US, or surgical consult.Follicular neoplasm, suspicious for follicular neoplasmSurgical consult; also consider molecular testing. Suspicious for malignancySurgical consult.MalignantSurgical consult. Dictated by: Bunny Mistry M.D. on 12/27/2024 at 11:41 Approved by: Bunny Mistry M.D. on 12/27/2024 at 11:42
== END ==
PROVIDERS: PCP Family Medicine; Referring Provider Family Medicine; Visit Provider Family Medicine
DX: E04.1 Nontoxic single thyroid nodule (principal)
CPT/HCPCS: 10005

== ENCOUNTER 2025-05-03 08:43 | Outpatient (CLI) | payer OTHER, MEDICARE, SELFPAY ==
[2024-07-05 15:13] VITALS: BMI 25.1
[2024-07-06 19:03] VITALS: PULSE 52; RESP 16; O2SAT 98
[2025-05-03] VITALS (10 sets, daily range): BP systolic 120–181; BP diastolic 56–74; PULSE 52–59; RESP 12–17; TEMP 36.2; O2SAT 2–100
[2025-05-03] MEDS: MIDAZOLAM 2 MG/2 ML VIAL IV ×2 (09:46→09:52)
[2025-05-03] MEDS: BUPIVACAINE 0.25% (PF) VIAL 2 ML INJ (09:54)
[2025-05-03] MEDS: iopamidoL 15 ML VIAL 3 ML INJ (09:55)
[2025-05-03] MEDS: DEXAMETHASONE 10 MG/ML VIAL 30 MG INJ (09:56)
--- NOTE | 2025-05-03 10:05 | P.PCN_ITS ---
Date/Time/Diagnoses Date of procedure: 05/03/25 Time of procedure: 10:05 Pre-procedure diagnosis: 1. CERVICAL STENOSIS, 2. CERVICAL HNP WITH UPPER EXTREMITY RADICULAR FEATURES Post-procedure diagnosis: same Procedure Notes Procedure: 1. FLUORSCOPICALLY GUIDED CONTRAST CONTROLLED INTERLAMINAR EPIDURAL STEROID INJECTION - C6/7 TL LISA Indications: Kaylie is referred by Dr. Swift for treatment of Cervical HNP with Upper Extremity Paresthesias. Physician: Valente Shaw Total Fluoroscopy time (seconds): 25 Total sedation minutes: 15 Complications: none Procedure in detail & Post-procedure care: FINDINGS Cervical Stenosis due to disc deterioration and nerve root irritation and nerve root irritation DESCRIPTION OF PROCEDURE Fluoroscopically guided, contrast-controlled C6/7 translaminar epidural steroid injection with conscious sedation. Following review of allergy and review of potential side effects and complications, including, but not necessarily limited to, infection, allergic reaction, local tissue breakdown, temporary as well as permanent nerve injury, stroke, paralysis, and possible , the patient indicated that patient understood and agreed to proceed. An informed consent document was signed by the patient, witnessed by a nurse, and placed in the patient's chart. Additionally, other treatment options including modalities, medications, and physical therapy were reviewed with the patient. After review of previous anaesthesic history and IV conscious sedation the patient was deemed safe to proceed with today?s procedure with IV conscious sedation as ASA class II designation. Safety time-out was performed to confirm patient ID, procedure to be performed and site of procedure. IV sedation was accomplished with a combination of 2mg of Versed administered by the RN after DO order, titrated to patient comfort during the course of the procedure while the patient remained responsive to all verbal commands. In the prone position, following sterile prep and drape of the cervical region, the C6/7 translaminar space was identified fluoroscopically. The skin was anesthetized via a 25-gauge 1.5-inch needle with 1% lidocaine solution. At this point, a 25-gauge, 2.5-inch short bevel spinal needle was atraumatically introduced and advanced under fluoroscopic guidance into epidural space at the C6/7 translaminar space. Depth was confirmed on lateral view. Radiological data, including multiple fluoroscopic views of the cervical spine, reveal a spinal needle at the C6/7 translaminar space. Lateral views then show placement of the needle in the epidural space. Subsequent views show contrast material flowing superiorly and inferiorly in the epidural space. DSA fluoroscopy with live contrast injection, once again, confirmed no vascular or intrathecal uptake. At this point, using loss of resistance technique with saline and air, the epidural space was entered. Following negative aspiration, injection of approximately 1.5 cc of Isovue-200 with live fluoroscopy in the AP view confirmed epidural flow in the epidural space without vascular or intrathecal uptake observed. Subsequently, a test dose of 1 cc of 1% lidocaine solution was injected and patient was observed for two minutes without signs or symptoms of complications, including abdominal pain, shortness of breath, bilateral upper or lower extremity weakness, nausea and vomiting, prior to steroid injection. At this point, 3cc or 30mg of dexamethasone was then injected without incident. The patient tolerated the procedure well without signs or symptoms of comp lications prior to being transferred to the recovery area for further monitoring, The patient was then transferred to the recovery area where they were observed for an appropriate period of time after the injection. The patient reported a VAS score of 6 prior to the procedure and a post-procedure VAS of 0. POST OP INSTRUCTIONS The patient was provided a Pain Log to continue to record their response to the target-specific procedure prior to follow-up visit with the referring provider. Additionally, specific post-injection care instructions and a contact number to our office were provided if concerns arise regarding possible complications associated with the procedure are suspected.
== END 2025-05-03 10:25 | disposition home or self-care (01) ==
LOC: RAD 08:45
PROVIDERS: PCP Family Medicine; Referring Provider Physical Medicine & Rehabilitation; Visit Provider Physical Medicine & Rehabilitation
DX: M48.02 Spinal stenosis, cervical region (principal); M50.123 Cervical disc disorder at C6-C7 level with radiculopathy
CPT/HCPCS: 62321; 99152; J1100; J2250

== ENCOUNTER 2025-08-02 07:30 | Outpatient (RCR) | payer OTHER, MEDICARE, SELFPAY ==
[2025-04-26 09:58] VITALS: PULSE 52; RESP 16; O2SAT 98; BMI 25.1
--- NOTE | 2025-07-10 19:03 | PT.OPPOC ---
Physical, Occupational & Speech Therapy At [facility] Current Diagnoses Other chronic pain (07/10/25) Pain in left hip (07/10/25) Visit Care Team Role Provider Type Nick Swift MD Attending Provider Physician Family Provider Primary Care Provider Referring Provider Specialty: Family Practice Address: [facility] [place], [address] Email: [email or web address] Plan Of Care PT OP: Lower Back/Lower Extremity Start: 07/10/25 10:38 Freq: Status: Active Protocol: Document 07/10/25 10:38 BL (Rec: 07/10/25 10:48 BL Laptop) Out-Patient Physical Therapy Visit Information Visit Information Visit Type Initial Evaluation Visit Start Time 11:30 Visit Stop Time 12:10 Visit Number (1) 12/08 Number of [facility]OR [facility] Visits 0 Progress Note Due 08/09/25 OP-PT Subjective Patient Comments Patient Comments Pt presents to the clinic this date with concerns for L hip pain that began two weeks prior. Pt reports insidious onset with continuing worsening symptoms especially at night. Pt reports a sharp pain on her anterior lateral thigh down the lateral calf that can become more of a dull ache at times. States she feels slightly better after walking but was instructed by her doctor to not walk far distance and using a cane may provide some relief of her symptoms. Pt rates her pain as 7/10 currently. Pt reports she is on some strong pain meds due to cervical and pain and these have not helped with her current symptoms. She also states slight improvement with heat and topicals. Patient Reported Worse Progress Patient Questionnaires Lower Extremity Functional Scale LEFS Score 27 function Balance Tests Single Limb Standing Single Limb- Right 2 Single Limb- Left 2 (limited due to pain) Posture Evaluation Comments Posture Comments Pt stands with NBOS with SBQC in L UE. Pt sits with knees flexed and L knee posterior to R. Pt demos NBOS with gait pattern Palpation Assessment Location L LE Palpation Details Pt point tender with palpation through L piriformis and and TFL this date along with IT band to insertion. No tenderness noted through SI are or lumbar paraspinals this date. Lumbar Spine Range of Motion Lumbar Spine Active Percentage Testing Position Standing Flexion 75 Extension 100 Rotation Left 80 Rotation Right 80 Lateral Flexion Left 90 Lateral Flexion 90 Right Comments no reproduction of symptoms Hip Goniometric Range of Motion Hip Measured in Degrees right Hip ROM WFL Yes left Hip ROM WFL Yes Comments Increased tightness noted into flexion and ER. Knee Goniometric Range of Motion Knee Measured in Degrees Right Knee ROM WFL Yes Left Knee ROM WFL Yes Hip Strength Hip Manual Muscle Testing Right Flexion (L2) 4+ Good+ Extension (S1) 4 Good Abduction 4 Good External Rotation 4 Good Internal Rotation 4 Good Left Flexion (L2) 4+ Good+ Extension (S1) 4 Good Abduction 4 Good External Rotation 4 Good Internal Rotation 4- Good- Knee Strength Knee Manual Muscle Testing Right Flexion (S2) 4 Good Extension (L3) 5 Normal Left Flexion (S2) 4 Good Extension (L3) 5 Normal Therapeutic Exercises Supine Exercises strenth Supine Exercise Name Bridges Comments 10x, cues for knee alignment. stretch Supine Exercise Name piriformis stretch, modified paul stretch Comments 3 x30 sec Physical Therapy Assessment Rehab Potential Rehabilitation Good Potential Evaluation Complexity Number of Personal 1-2 Factors/ Comorbidities Number of Body 3 Systems Impaired Clinical Evolving Presentation at Evaluation Impairments Impairments Coordination Goals Three Mcc Goal (LTG) pt will demo improved L hip abduction strength to 5/5 by DC for improved functional stability with gait. Two Railroad Car Loader Goal (LTG) pt will demo improved L hip ER strength to 4+/5 by DC for improved functional stability with transfers. One Short Term Goal (STG pt will be ind with HEP within 2 visits in order to ) progress toward alf therapy goals outside of therapy visits. Railroad Car Loader Goal (LTG) Pt will demo improved LEFS score to 50 function or better by DC for improved functional mobility. Assessment Summary Assessment Pt presents with decreased L hip mobility and strength compared to the R side. Pt demos tenderness with piriformis and TFL palpation this date. Pt has pain with activity including activation of the above areas. Pt demos difficulty with gait and use of SBQC which are limiting her ability to complete ADLS including sleeping at night. Pt will benefit from skilled Physical Therapy intervention for strength and endurance training in order to improve functional mobility and improve quality of life. Physical Therapy Plan Frequency and Duration Frequency of 2x/Week Treatment Duration of 8 treatment (weeks) Plan of Care Start 07/10/25 Date Plan of Care End 09/04/25 Date Therapeutic Interventions Therapeutic Balance Training,Coordination Training,Gait Training, Interventions Home Exercise Program,Joint Mobilizations,Manual Therapy,Neuromuscular Re-education,Orthotic/Prosthetic Management,Patient/Caregiver Education,Self-Care/Home Management,Sensory Integration,Soft Tissue Mobilization ,Therapeutic Activities,Therapeutic Exercises Modalities Cold Pack/Ice Massage,Electric Stimulation,Hot Packs, Infrared Therapy,Iontophoresis,Ultrasound Next Visit Focus/Plan Next Note Type Treatment Note Next Visit Plan Advance HEP for LE hip strength and endurance training along with ROM. Inspect innominate rotaton. Plan of Care Dates Plan of Care Start Date 07/10/25 Plan of Care End Date 09/04/25 Electronically Signed by: Abiel Akhtar, PT 07/10/25 4326 If you are in agreement with this Plan of Care, please return a signed and dated copy. I have reviewed this Plan of Care and certify that the skilled therapy services above are required to meet the patient?s needs. Physician Signature Date Printed Name and Credentials Clinical Instructor Signature Printed Name and Credentials
--- NOTE | 2025-07-12 09:00 | PT.OTN ---
Current Diagnoses Other chronic pain (07/12/25) Pain in left hip (07/12/25) Physical Therapy Treatment Note PT OP: Lower Back/Lower Extremity Start: 07/10/25 10:38 Freq: Status: Active Protocol: Document 07/12/25 08:12 BL (Rec: 07/12/25 08:59 BL Laptop) Out-Patient Physical Therapy Visit Information Visit Information Visit Type Treatment Note Visit Start Time 08:15 Visit Stop Time 08:55 Visit Number (2) 2/10 Number of DYE ROOM HELPER Visits 0 Progress Note Due 08/09/25 OP-PT Subjective Patient Comments Patient Comments Pt presents to the clinic this date and reports HEP is going well, states continued discomfort with sleeping on L side at night. Reports walking with the cane in her R hand has helped but still feel really awkward. Therapeutic Exercises Supine Exercises strenth Supine Exercise Name Bridges Resistance lvl 1 band Comments 10x, cues for knee alignment. stretch Supine Exercise Name piriformis stretch, modified paul stretch Comments 3 x30 sec Sidelying Exercises clamshells Resistance 0# Comments 10x Manual Therapy Treatment Consent Patient gave verbal Yes consent for manual treatment Soft Tissue Mobilization L hip and back Comments DTM and TPR to lateral quadriceps, and piriformis area. Improved tissue mobility following with improved symptom relief. Physical Therapy Assessment Goals Three Tire Installer Goal (LTG) pt will demo improved L hip abduction strength to 5/5 by DC for improved functional stability with gait. Two Tire Installer Goal (LTG) pt will demo improved L hip ER strength to 4+/5 by DC for improved functional stability with transfers. One Short Term Goal (STG pt will be ind with HEP within 2 visits in order to ) progress toward snf therapy goals outside of therapy visits. Tire Installer Goal (LTG) Pt will demo improved LEFS score to 50 function or better by DC for improved functional mobility. Assessment Summary Assessment Pt tolerates session well this date, able to advance LE strength and endurance training this session with improved symptoms following. Continue to focus on strength an endurance training per pt tolerance. Physical Therapy Plan Frequency and Duration Frequency of 2x/Week Treatment Duration of 8 treatment (weeks) Plan of Care Start 07/10/25 Date Plan of Care End 09/04/25 Date Next Visit Focus/Plan Next Note Type Treatment Note Next Visit Plan Advance HEP for LE hip strength and endurance training along with ROM. Inspect innominate rotaton.
--- NOTE | 2025-07-19 09:50 | PT.OTN ---
Current Diagnoses Other chronic pain (07/19/25) Pain in left hip (07/19/25) Physical Therapy Treatment Note PT OP: Lower Back/Lower Extremity Start: 07/10/25 10:38 Freq: Status: Active Protocol: Document 07/19/25 09:05 SP (Rec: 07/19/25 10:12 SP [id number]) Out-Patient Physical Therapy Visit Information Visit Information Visit Type Treatment Note Visit Start Time 09:05 Visit Stop Time 09:50 Visit Number (4) 03/08 Number of QC CHEMIST Visits 1 Progress Note Due 08/09/25 OP-PT Subjective Patient Comments Patient Comments Pt reports did really well after last with manual, was able to walk better without QC but had to support as needed. Noted slight sway walking in today without but had QC with her. Therapeutic Exercises Supine Exercises strenth Supine Exercise Name Bridge- verbal review 07/19/25 Resistance lvl 1 band Reps/Minutes 10x, Comments cues for knee alignment. stretch Supine Exercise Name piriformis stretch, modified paul stretch Reps/Minutes 3 x30 sec Comments verbal review Sidelying Exercises clamshells Sidelying Exercise reviewed performance added TB Name Side bilateral Resistance AROM> TB #2 teal around thighs Reps/Minutes 10 reps each Comments cued stacked alignment, TA draw in, slow controlled motion lift/lower Other Exercises Self STMs Other Exercise Name glut, leg, calf, adduction, piriformis, low back ES (no HO) Resistance L>R Equipment Used ball wall vs sit on and Rolling pin thigh/calf Reps/Minutes tennis ball vs racquetball/ surface tolerance beneficial, pressure ok Comments performance at wall ES/glut vs seated for glut is better Gait Training Gait Activity AD vs no AD Device Used QC Distance/Duration across gym arrival/leaving Treatment Focus proper positioning, good sequencing, posture, arm swing importance Comments cues purse/hand bag across body allow arm swing, tends to use 2 feet vs 4 not need support of 4 feet now, discussed progress SPC vs trek pole, next tx work more with, will bring hers. Manual Therapy Treatment Consent Patient gave verbal Yes consent for manual treatment Soft Tissue Mobilization L hip and back Body Location quad, piriformis, adductor, ITB, TFL, HS, calf, peroneal Mobilization Type Rolling Comments DTM: Improved tissue mobility following with improved symptom relief with ed self use ball and rolling pin. Joint Mobilizations ankle Joint R- future leg Joint R knee: tibfib, tib femoral P<>A Grade II Body Position Hooklying Comments in various degrees flexion Self-Care/Home Management Treatment Education Patient Education Body Mechanics,Fall Risk,Home Exercise Program,Joint Protection,Pain Management,Posture,Safety Other Education Extra time ed anatomy, mechanics walk, stretch, ex strength support, self STMs assist mobility. Started discussion no AD vs DC QC and maybe use SPC vs trek pole. Will assess more next tx, will bring hers. Importance of TS rotational mobility arm swing with trek pole vs none if stable vs holding hand for stability when needed and wanting to get off AD. COntinue assess next tx. Physical Therapy Assessment Goals Three Collar Sewer Goal (LTG) pt will demo improved L hip abduction strength to 5/5 by DC for improved functional stability with gait. Two Collar Sewer Goal (LTG) pt will demo improved L hip ER strength to 4+/5 by DC for improved functional stability with transfers. One Short Term Goal (STG pt will be ind with HEP within 2 visits in order to ) progress toward press tender long goods therapy goals outside of therapy visits. Collar Sewer Goal (LTG) Pt will demo improved LEFS score to 50 function or better by DC for improved functional mobility. Assessment Summary Assessment Pt good feedback response to manual, education for self application with review self performance rolling pin seated thigh, calf, peroneal and tennis ball vs racquetball at wall vs sitting on depending on surface for deeper needed relief, cues for proper positioning and form and pressure safety allowance for benefits looking for tension relief, good feedback response throughout tx. Good tolerance of increased resistance to SL clamshell for hip abd strengthening and progression SLS and gait stability with decreased AD support safety discussed. Education LRAD at this time DC QC discussed SPC vs trel pole but unsrue arturo vs unilateral, assess next tx. Improved mobiltiy in L hip, feels so much better and now know how to do myself. Physical Therapy Plan Frequency and Duration Frequency of 2x/Week Treatment Duration of 8 treatment (weeks) Plan of Care Start 07/10/25 Date Plan of Care End 09/04/25 Date Therapeutic Interventions Therapeutic Balance Training,Coordination Training,Gait Training, Interventions Home Exercise Program,Joint Mobilizations,Manual Therapy,Neuromuscular Re-education,Orthotic/Prosthetic Management,Patient/Caregiver Education,Self-Care/Home Management,Sensory Integration,Soft Tissue Mobilization ,Therapeutic Activities,Therapeutic Exercises Modalities Cold Pack/Ice Massage,Electric Stimulation,Hot Packs, Infrared Therapy,Iontophoresis,Ultrasound Next Visit Focus/Plan Next Note Type Treatment Note Next Visit Plan Assess SPC vs trek pole use community gait, add standing hip and core strength for community gait. Check mobs L hip & ankle. POC: Advance HEP for LE hip strength and endurance training, balance, along with ROM. Inspect innominate rotaton.
--- NOTE | 2025-07-24 09:06 | PT.OTN ---
Current Diagnoses Other chronic pain (07/24/25) Pain in left hip (07/24/25) Physical Therapy Treatment Note PT OP: Lower Back/Lower Extremity Start: 07/10/25 10:38 Freq: Status: Active Protocol: Document 07/24/25 08:17 BL (Rec: 07/24/25 09:06 BL Laptop) Out-Patient Physical Therapy Visit Information Visit Information Visit Type Treatment Note Visit Start Time 08:15 Visit Stop Time 08:55 Visit Number (5) 5/10 Number of PYROTECHNIC ASSEMBLER Visits 0 Progress Note Due 08/09/25 Therapeutic Exercises Supine Exercises strenth Supine Exercise Name Bridge- verbal review 07/19/25 Resistance lvl 3 band Reps/Minutes 10x, Comments cues for knee alignment. stretch Supine Exercise Name piriformis stretch, modified paul stretch Reps/Minutes 3 x30 sec Comments review Sidelying Exercises clamshells Sidelying Exercise clamshells, and reverse clamshells. Name Side bilateral Resistance AROM> TB #3 at knees Reps/Minutes 15 reps each Comments cued stacked alignment, TA draw in, slow controlled motion lift/lower Sitting Exercises strength Sitting Exercise sit<>stand with L LE bias Name Comments 10x Standing Exercises strength Standing Exercise standing hip abduction, Name Other Exercises Leg Press Other Exercise Name double leg 75, single leg 50 Comments 15x Self STMs Other Exercise Name glut, leg, calf, adduction, piriformis, low back ES (no HO) Resistance L>R Equipment Used ball wall vs sit on and Rolling pin thigh/calf Reps/Minutes tennis ball vs racquetball/ surface tolerance beneficial, pressure ok Comments performance at wall ES/glut vs seated for glut is better Manual Therapy Treatment Soft Tissue Mobilization L hip and back Body Location quad, piriformis, adductor, ITB, TFL, HS, calf, peroneal Mobilization Type Rolling Comments DTM: Improved tissue mobility following with improved symptom relief with ed self use ball and rolling pin. Physical Therapy Assessment Goals Three Usp Goal (LTG) pt will demo improved L hip abduction strength to 5/5 by DC for improved functional stability with gait. Two Nurse Emergency Room Goal (LTG) pt will demo improved L hip ER strength to 4+/5 by DC for improved functional stability with transfers. One Short Term Goal (STG pt will be ind with HEP within 2 visits in order to ) progress toward fpc therapy goals outside of therapy visits. Usp Goal (LTG) Pt will demo improved LEFS score to 50 function or better by DC for improved functional mobility. Assessment Summary Assessment Pt tolerates session well with improved symptoms following, able to advance HEP for strength training this session. Discussed return to walking and biking activities for home. Physical Therapy Plan Frequency and Duration Frequency of 2x/Week Treatment Duration of 8 treatment (weeks) Plan of Care Start 07/10/25 Date Plan of Care End 09/04/25 Date Next Visit Focus/Plan Next Note Type Treatment Note Next Visit Plan Assess SPC vs trek pole use community gait, add standing hip and core strength for community gait. Check mobs L hip & ankle. POC: Advance HEP for LE hip strength and endurance training, balance, along with ROM. Inspect innominate rotaton.
--- NOTE | 2025-07-26 09:01 | PT.OTN ---
Current Diagnoses Other chronic pain (07/26/25) Pain in left hip (07/26/25) Physical Therapy Treatment Note PT OP: Lower Back/Lower Extremity Start: 07/10/25 10:38 Freq: Status: Active Protocol: Document 07/26/25 08:14 BL (Rec: 07/26/25 09:01 BL Laptop) Out-Patient Physical Therapy Visit Information Visit Information Visit Type Treatment Note Visit Start Time 08:15 Visit Stop Time 08:55 Visit Number (6) 05/08 Number of SITE PLANNER Visits 0 Progress Note Due 08/09/25 OP-PT Subjective Patient Comments Patient Comments Pt presents to the clinic this date and reports she is doing ok, states this has been a rough week. Pt states she felt pretty good following last session. Therapeutic Exercises Supine Exercises stretch Supine Exercise Name piriformis stretch, modified paul stretch (reviewed) Reps/Minutes 3 x30 sec Comments review Sidelying Exercises clamshells Sidelying Exercise clamshells, and reverse clamshells. Name Side bilateral Resistance AROM> TB #3 at knees Reps/Minutes 2x 10 arturo Comments cued stacked alignment, TA draw in, slow controlled motion lift/lower Standing Exercises strength Standing Exercise HR on step Name Comments 2x10 Other Exercises Leg Press Other Exercise Name double leg 100, single leg 50 Comments 15x Manual Therapy Treatment Soft Tissue Mobilization L hip and back Body Location quad, piriformis, adductor, ITB, TFL, HS, calf, peroneal Mobilization Type Rolling Comments DTM: Improved tissue mobility following with improved symptom relief with ed self use ball and rolling pin. Physical Therapy Assessment Goals Three Fpc Goal (LTG) pt will demo improved L hip abduction strength to 5/5 by DC for improved functional stability with gait. Two Fpc Goal (LTG) pt will demo improved L hip ER strength to 4+/5 by DC for improved functional stability with transfers. One Short Term Goal (STG pt will be ind with HEP within 2 visits in order to ) progress toward intermediate school teacher therapy goals outside of therapy visits. Fpc Goal (LTG) Pt will demo improved LEFS score to 50 function or better by DC for improved functional mobility. Assessment Summary Assessment Pt tolerates session well with improved symptoms following, able to advance HEP for strength training this session. Discussed return to walking and biking activities for home. Physical Therapy Plan Frequency and Duration Frequency of 2x/Week Treatment Duration of 8 treatment (weeks) Plan of Care Start 07/10/25 Date Plan of Care End 09/04/25 Date Next Visit Focus/Plan Next Note Type Treatment Note Next Visit Plan Assess SPC vs trek pole use community gait, add standing hip and core strength for community gait. Check mobs L hip & ankle. POC: Advance HEP for LE hip strength and endurance training, balance, along with ROM. Inspect innominate rotaton.
--- NOTE | 2025-07-31 09:47 | PT.OTN ---
Current Diagnoses Other chronic pain (07/31/25) Pain in left hip (07/31/25) Physical Therapy Treatment Note PT OP: Lower Back/Lower Extremity Start: 07/10/25 10:38 Freq: Status: Active Protocol: Document 07/31/25 09:01 BL (Rec: 07/31/25 09:47 BL Laptop) Out-Patient Physical Therapy Visit Information Visit Information Visit Type Treatment Note Visit Start Time 09:00 Visit Stop Time 09:40 Visit Number (7) 06/07 Number of SEATER ASSEMBLER Visits 0 Progress Note Due 08/09/25 Therapeutic Exercises Standing Exercises Dynamic Standing Exercise Lateral walking Name Resistance lvl 3 band strength Standing Exercise HR on step, lateral step ups Name Comments 2x10 Other Exercises Endurance Other Exercise Name CR 800 Resistance lvl 12 Comments 3 minutes Leg Press Other Exercise Name double leg 112, single leg 50 Comments 15x Manual Therapy Treatment Soft Tissue Mobilization L hip and back Body Location quad, piriformis, adductor, ITB, TFL, HS, calf, peroneal Mobilization Type Rolling Comments DTM: Improved tissue mobility following with improved symptom relief with ed self use ball and rolling pin. Neuro Re-Education Treatment Balance Activities shuttle Details fwd/bkwd, center, lat weight shift Comments 3 min ea Physical Therapy Assessment Goals Three Hospitality Coordinator Goal (LTG) pt will demo improved L hip abduction strength to 5/5 by DC for improved functional stability with gait. Two Fdc Goal (LTG) pt will demo improved L hip ER strength to 4+/5 by DC for improved functional stability with transfers. One Short Term Goal (STG pt will be ind with HEP within 2 visits in order to ) progress toward terminal make up operator therapy goals outside of therapy visits. Fdc Goal (LTG) Pt will demo improved LEFS score to 50 function or better by DC for improved functional mobility. Assessment Summary Assessment Pt tolerates session well, able to advance HEP for standing hip abduction strength this date with improved stability and decreased pain. Continue to advance per pt tolerance. Physical Therapy Plan Frequency and Duration Frequency of 2x/Week Treatment Duration of 8 treatment (weeks) Plan of Care Start 07/10/25 Date Plan of Care End 09/04/25 Date Next Visit Focus/Plan Next Note Type Treatment Note Next Visit Plan Assess SPC vs trek pole use community gait, add standing hip and core strength for community gait. Check mobs L hip & ankle. POC: Advance HEP for LE hip strength and endurance training, balance, along with ROM. Inspect innominate rotaton.
--- NOTE | 2025-08-09 14:18 | PT.OPDS ---
Current Diagnoses Other chronic pain (08/02/25) Pain in left hip (08/02/25) Visit Care Team Role Provider Type Nick Swift MD Attending Provider Physician Family Provider Primary Care Provider Referring Provider Specialty: Family Practice Address: [address] [place], [address] Email: [email or web address] Visit Number Visit Number (7) 06/07 Discharge Summary Pt reports she is doing well, plans to cancel remaining appt, ready to DC this date. PT OP: Lower Back/Lower Extremity Start: 07/10/25 10:38 Freq: Status: Active Protocol: Document 07/31/25 09:01 BL (Rec: 07/31/25 09:47 BL Laptop) Out-Patient Physical Therapy Visit Information Visit Information Visit Type Treatment Note Visit Start Time 09:00 Visit Stop Time 09:40 Visit Number (7) 06/07 Number of ABSORPTION AND ADSORPTION ENGINEER Visits 0 Progress Note Due 08/09/25 Therapeutic Exercises Standing Exercises Dynamic Standing Exercise Lateral walking Name Resistance lvl 3 band strength Standing Exercise HR on step, lateral step ups Name Comments 2x10 Other Exercises Endurance Other Exercise Name CR 800 Resistance lvl 12 Comments 3 minutes Leg Press Other Exercise Name double leg 112, single leg 50 Comments 15x Manual Therapy Treatment Soft Tissue Mobilization L hip and back Body Location quad, piriformis, adductor, ITB, TFL, HS, calf, peroneal Mobilization Type Rolling Comments DTM: Improved tissue mobility following with improved symptom relief with ed self use ball and rolling pin. Neuro Re-Education Treatment Balance Activities shuttle Details fwd/bkwd, center, lat weight shift Comments 3 min ea Physical Therapy Assessment Goals Three Electric Distribution Checker Goal (LTG) pt will demo improved L hip abduction strength to 5/5 by DC for improved functional stability with gait. Two Half-Way Goal (LTG) pt will demo improved L hip ER strength to 4+/5 by DC for improved functional stability with transfers. One Short Term Goal (STG pt will be ind with HEP within 2 visits in order to ) progress toward driver's license examiner therapy goals outside of therapy visits. Half-Way Goal (LTG) Pt will demo improved LEFS score to 50 function or better by DC for improved functional mobility. Assessment Summary Assessment Pt tolerates session well, able to advance HEP for standing hip abduction strength this date with improved stability and decreased pain. Continue to advance per pt tolerance. Physical Therapy Plan Frequency and Duration Frequency of 2x/Week Treatment Duration of 8 treatment (weeks) Plan of Care Start 07/10/25 Date Plan of Care End 09/04/25 Date Next Visit Focus/Plan Next Note Type Treatment Note Next Visit Plan Assess SPC vs trek pole use community gait, add standing hip and core strength for community gait. Check mobs L hip & ankle. POC: Advance HEP for LE hip strength and endurance training, balance, along with ROM. Inspect innominate rotaton.
== END 2025-08-20 10:42 | disposition home or self-care (01) ==
LOC: PHYS 07:30
PROVIDERS: Family Provider Family Medicine; PCP Family Medicine; Referring Provider Family Medicine; Visit Provider Family Medicine
DX: M25.552 Pain in left hip (principal); G89.29 Other chronic pain
CPT/HCPCS: 97110; 97112; 97140; 97162; 97535